=== PATIENT | male | born 1960 | race African-American/Black ===

== ENCOUNTER 2018-08-05 12:45 | Inpatient (IN) | payer BC ==
--- NOTE | 2018-08-05 14:05 | RAD REPORT ---
EXAM DESCRIPTION: RAD - Chest Pa And Lat (2 Views) - 08/05/2018 1:47 pm CLINICAL HISTORY: Fall, chest pain COMPARISON: None. TECHNIQUE: PA and lateral views of the chest were obtained. FINDINGS: The lungs are clear. Heart size is normal and central vasculature is within normal limit s. No pleural effusion or pneumothorax seen. No acute bony finding noted. No aortic abnormality. IMPRESSION: No acute cardiopulmonary process.
--- NOTE | 2018-08-05 15:51 | RAD REPORT ---
EXAM DESCRIPTION: CT - Ct Stroke Brain Wo Cont - 08/05/2018 3:40 pm CLINICAL HISTORY: left sided weakness. dysequilibrium Headache, drowsiness. COMPARISON: No comparisons TECHNIQUE: All CT scans are performed using dose optimization technique as appropriate and may inclu de automated exposure control or mA/KV adjustment according to patient size. FINDINGS: No intracranial hemorrhage, hydrocephalus or extra-axial fluid collection.There is evidenc e gliosis seen adjacent to the left frontal horn likely representing old infarct. Areas of intermedia te diminished density are seen along the right frontal horn measuring 12 mm and right periventricular white matter measuring 12 mm are suspicious for areas of subacute infarct. The paranasal sinuses and mastoids are clear. The calvarium is intact. IMPRESSION: Areas of diminished density as detailed in the right periventricular white matter are russ spicious for subacute nonhemorrhagic infarct. No intracranial hemorrhage is seen. No midline shift. The findings were discussed with Dr. Infante in the ER on 08/05/2018 at 3:45 p.m. by telephone.
[2018-08-05 16:10] LABS: Absolute Monocytes 0.7 K/uL (0.1-1.3); Absolute Neutrophil 2.7 K/uL (1.8-8.0); Eosinophils % 4.4 % (0-4.4); Hematocrit 45.5 % (39.6-49.0); MPV 8.4 fL (7.6-11.3); Monocytes % 14.5 % (3.3-12.3); RBC Red Blood Cell Count 4.68 M/uL (4.33-5.43)
[2018-08-05] MEDS ORDERED: ASPIRIN 81 MG CHEWABLE TABLET ONE (16:17)
[2018-08-05 16:22] LABS: ALT/SGPT 38 U/L (12-78); AST/SGOT 33 U/L (15-37); Albumin 4.3 g/dL (3.4-5.0); Alkaline Phosphatase 56 U/L (45-117); BUN Blood Urea Nitrogen 13 mg/dL (7-18); Bicarbonate 27 mmol/L (21-32); Bilirubin Direct 0.1 mg/dL (0-0.2); Bilirubin Total 0.5 mg/dL (0.2-1.0); Glucose Level 70 mg/dL (74-106); Potassium 4.3 mmol/L (3.5-5.1); Protein, Total 9.3 g/dL (6.4-8.2); Sodium Level 134 mmol/L (136-145); Troponin (Emerg Dept Use Only) < 0.02 ng/mL (0.0-0.045)
[2018-08-05 16:25] LABS: Barbiturates NEGATIVE (NEGATIVE); Benzodiazepines NEGATIVE (NEGATIVE); Cocaine NEGATIVE (NEGATIVE); METHAMPHETAM NEGATIVE (NEGATIVE); Methadone NEGATIVE (NEGATIVE); Opiates NEGATIVE (NEGATIVE); Phencyclidine NEGATIVE (NEGATIVE); THC Cannibis NEGATIVE (NEGATIVE)
[2018-08-05] MEDS ORDERED: DEXAMETHASONE 10 MG/ML VIAL ONE (16:28)
[2018-08-05 16:36] LABS: Urine Blood TRACE (NEG); Urine Glucose NEGATIVE (NEG); Urine Protein 1+ (NEG); Urine Specific Gravity 1.005 (1.005-1.030); Urine pH 5.5 (5.0-7.0)
[2018-08-05 16:42] LABS: Protime INR 0.97
--- NOTE | 2018-08-05 17:03 | EKG ---
Test Date: 2018-08-05 Test Time: 14:22:03 Ring Making Machine Operator: JOSE MEASUREMENT RESULTS: Intervals: Rate: 86 [place]: 158 QRSD: 82 QT: 372 QTc: 445 [place]: P: 61 [place]: 158 QRS: 85 T: 43 INTERPRETIVE STATEMENTS: Normal sinus rhythm Anteroseptal infarct, age undetermined Abnormal ECG No previous ECG available for comparison Electronically Signed On 08-05-18 17:03:15 FURNACE COMBINATION ANALYST by Chapito Mosqueda
--- NOTE | 2018-08-05 17:48 | ER ---
Nurse's Notes [facility] Name: Binh Parsons Age: 58 yrs Sex: Male : 1960 Arrival Date: 08/05/2018 Time: 12:46 Bed 26 Private MD: Erasmo Garcia Diagnosis: Right side periventricular subacute Infarction Presentation: 08/05 12:53 Presenting complaint: Patient states: 2 days ago, i started on a new medication, hj lisinopril-hctz 10-12.5mg; on same day i fell after it took a nap, i started feeling numb and tingling on my L arm; last night i fell again; no complaints of pain from the fall;. Transition of care: patient was not received from another setting of care. Onset of symptoms was August 05, 2018. Risk Assessment: Do you want to hurt yourself or someone else? Patient reports no desire to harm self or others. Initial Sepsis Screen: Does the patient meet any 2 criteria? No. Patient's initial sepsis screen is negative. Does the patient have a suspected source of infection? No. Patient's initial sepsis screen is negative. Care prior to arrival: None. 12:53 Method Of Arrival: Ambulatory 12:53 Acuity: DONG 3 hj Triage Assessment: 12:57 General: Appears in no apparent distress. uncomfortable, Behavior is calm, cooperative, hj appropriate for age. Pain: Denies pain. Historical: - Allergies: 12:57 No Known Allergies; hj - Home Meds: 12:57 lisinopril-hydrochlorothiazide 10-12.5 mg oral tab 1 tab once daily [Active]; hj amlodipine 2.5 mg tab 1 tab once daily [Active]; - PMHx: 12:57 Hypertension; hj - PSHx: 12:57 None; hj - Immunization history:: Adult Immunizations up to date. - Social history:: Smoking status: Patient uses tobacco products, Patient uses alcohol, Patient uses smokes a pack of cigarettes per day. drinks a 6 pack beer per day. - Ebola Screening: : Patient negative for fever greater than or equal to 101.5 degrees Fahrenheit, and additional compatible Ebola Virus Disease symptoms Patient denies exposure to infectious person Patient denies travel to an Ebola-affected area in the 21 days before illness onset. - Family history:: not pertinent. - Hospitalizations: : No recent hospitalization is reported. Screenin:57 Abuse screen: Denies threats or abuse. Denies injuries from another. Nutritional hj screening: No deficits noted. Tuberculosis screening: No symptoms or risk factors identified. Fall Risk None identified. 16:48 Patient has been NPO before screening. The patient is alert, able to follow commands. tl3 The patient does not exhibit slurred or garbled speech The patient is not exhibiting difficulty speaking. The patient does not exhibit difficulty understanding words. The patient is able to swallow own secretions with no drooling or need for suction. Patient tolerated one teaspoon of water. No drooling, immediate coughing, gurgling, or clearing of the throat was noted. The patient tolerated 90mL of water. No drooling, immediate coughing, gurgling, or clearing of the throat was noted. The patient passed the bedside swallow screening. Oral medications may be given as ordered. Contact Physician for further diet orders. Provider notified of bedside swallow screening results: Ilia Infante MD. Assessment: 15:03 General: Appears uncomfortable, slender, well groomed, well developed, well nourished, tl3 Behavior is calm, cooperative, appropriate for age. Neuro: Level of Consciousness is awake, alert, obeys commands. Cardiovascular: Patient's skin is warm and dry. Rhythm is sinus rhythm. Respiratory: Airway is patent Respiratory effort is even, unlabored, Respiratory pattern is regular, symmetrical. GI: No signs and/or symptoms were reported involving the gastrointestinal system. : No signs and/or symptoms were reported regarding the genitourinary system. EENT: No signs and/or symptoms were reported regarding the EENT system. Derm: No signs and/or symptoms reported regarding the dermatologic system. Musculoskeletal: No signs and/or symptoms reported regarding the musculoskeletal system. 17:25 Reassessment: No changes from previously documented assessment. Patient and/or family tl3 updated on plan of care and expected duration. Pain level reassessed. Patient is alert, oriented x 3, equal unlabored respirations, skin warm/dry/pink. Hospitalist at bedside. 20:26 Reassessment: Patient appears in no apparent distress at this time. No changes from tl3 previously documented assessment. Patient and/or family updated on plan of care and expected duration. Pain level reassessed. Patient is alert, oriented x 3, equal unlabored respirations, skin warm/dry/pink. Vital Signs: 12:58 BP 148 / 90; Pulse 97; Resp 18; Temp 98.3(TE); Pulse Ox 100% on R/A; Weight 65.77 kg; hj Height 5 ft. 8 in. (172.72 cm); Pain 0/10; 14:18 BP 148 / 85 LA (auto/reg); Pulse 86; Resp 18; Pulse Ox 98% ; Pain 0/10; jp3 14:24 BP 143 / 84 LA Supine (auto/reg); Pulse 82; Pulse Ox 98% on R/A; Pain 0/10; jp3 14:26 BP 143 / 88 LA Sitting (auto/reg); Pulse 91; Pulse Ox 99% on R/A; Pain 0/10; jp3 14:28 BP 139 / 88 LA Standing (auto/reg); Pulse 94; Pulse Ox 99% on R/A; Pain 0/10; jp3 16:50 BP 146 / 85; Pulse 100; Resp 18; Pulse Ox 99% on R/A; tl3 20:26 BP 126 / 70; Pulse 88; Resp 18; Pulse Ox 99% on R/A; tl3 12:58 Body Mass Index 22.05 (65.77 kg, 172.72 cm) hj 14:24 Pt stated : "I feel good. No lightheadedness or dizziness" jp3 14:26 Same as Supine comment jp3 14:28 Same as Supine and Sitting comment jp3 NIH Stroke Scale Scores: 16:48 NIHSS Score: 0 tl3 ED Course: 12:46 Patient arrived in ED. ag5 12:47 Erasmo Garcia DO is Private Physician. ag5 12:55 Triage completed. hj 12:57 Arm band placed on right wrist. hj 12:58 Patient has correct armband on for positive identification. Placed in gown. Bed in low hj position. Call light in reach. Side rails up X 1. 13:42 Chest Pa And Lat (2 Views) XRAY In Process Unspecified. EDMS 14:26 Soheila Galvan, MARLIN is Primary Nurse. tl3 14:27 Ilia Infante MD is Attending Physician. wa 14:28 EKG done, by lighting engineering technician. reviewed by Ilia Infante MD. sm3 15:03 ED physician to see patient. tl3 15:03 No provider procedures requiring assistance completed. tl3 15:[address] vm2 15:40 CT completed. Patient tolerated procedure well. Patient moved to radiology. vm2 15:41 CT Stroke Brain w/o Contrast In Process Unspecified. EDMS 16:48 Inserted saline lock: 20 gauge in right antecubital area, using aseptic technique. tl3 17:46 Farzana Oconnell MD is Hospitalizing Provider. wa 20:26 Patient admitted, IV remains in place. tl3 Administered Medications: 16:04 Drug: Aspirin Chewable Tablet 324 mg Route: PO; tl3 16:47 Follow up: Response: No adverse reaction tl3 Point of Care Testing: Blood Glucose: 16:03 Blood Glucose: 68 mg/dL; tl3 Ranges: Outcome: 17:47 Decision to Hospitalize by Provider. wa 20:27 Admitted to Tele accompanied by tech, via wheelchair, with chart. tl3 20:27 Condition: stable 20:27 Instructed on the need for admit. 21:38 Patient left the ED. tl3 NIH Stroke Scale - NIH Stroke Score Date: 08/05/2018 Time: 16:48 Total Score = 0 1a. Level of Consciousness (LOC) - 0(Alert) 1b. Level of Consciousness (LOC) (Year \\T\\ Age) - 0(Both) 1c. LOC Commands (Open \\T\\ Closes Eyes/Concrete Rod Buster) - 0(Both) 2. Best Gaze (Lateral Gaze Paresis) - 0(Normal) 3. Visual Field Loss - 0(No visual loss) 4. Facial Palsy - 0(Normal) 5a. Left Arm: Motor (10-second hold) - 0(No drift) 5b. Right Arm: Motor (10-second hold) - 0(No drift) 6a. Left Leg: Motor (5-second hold - always test supine) - 0(No drift) 6b. Right Leg: Motor (5-second hold - always test supine) - 0(No drift) 7. Limb Ataxia (finger/nose \\T\\ heel/cortez - test with eyes open) - 0(Absent) 8. Sensory Loss (pinprick arms/legs/face) - 0(Normal) 9. Best Language: Aphasia (description/naming/reading) - 0(No aphasia) 10. Dysarthria (speech clarity - read or repeat words) - 0(Normal) 11. Extinction and Inattention (visual/tactile/auditory/spatial/personal) - 0(No abnormality) Initials: tl3 Signatures: Dispatcher [employer] Taiwo Neely, RN RN Muna Huffman 2 Ilia Infante MD MD wa Lowrey, Tammy, RN RN tl3 Diana Barrientos sm3 Donn Cummins jp3 Celso Kelly ag5 Corrections: (The following items were deleted from the chart) 12:59 12:58 Pulse 97bpm; Resp 18bpm; Pulse Ox 100% RA; Temp 98.3F Temporal; 65.77 kg; hj Height 5 ft. 8 in.; BMI: 22.0; Pain 0/10; hj 14:38 14:34 BP 143 / 84 Supine Auto L Arm Regular; Pulse 82bpm; Pulse Ox 98% RA; Pain jp3 0/10; Pt stated : "I feel good. No lightheadedness or dizziness"; jp3
--- NOTE | 2018-08-05 17:48 | EDPHYS ---
Physician Documentation [facility] Name: Binh Parsons Age: 58 yrs Sex: Male : 1960 Arrival Date: 08/05/2018 Time: 12:46 Bed 26 Private MD: Jose [facility] ED Physician Ilia Infante HPI: 08/06 19:12 This 58 yrs old Black Male presents to ER via Ambulatory with complaints of Fall wa Injury, General Weakness, Numbness. 19:12 Details of fall: The patient fell from an upright position. Onset: The symptoms/episode wa began/occurred 3 day(s) ago. Associated injuries: The patient sustained no obvious injury. Severity of symptoms: At their worst the symptoms were moderate, in the emergency department the symptoms are unchanged. The patient has not experienced similar symptoms in the past. The patient has been recently seen by a physician: the patient's primary care provider. presents with spouse c/o unsteady on his feet and falling to the left since Thursday night (3 days ago). Per , pt began falling to his left since Thursday and appears wobbly on his feet. Pt failed on the job physical a week ago and saw Dr. Garcia for BP issues. put on BP meds and sent home. states they want to know if the medication is what is making him fall. Pt denies SAMS or dizziness. Denies chest pain or shortness of breath. denies difficulty swallowing. admits to having difficulty walking and having to hold on to things when walks. denies injury or pain when walks. Historical: - Allergies: 08/05 12:57 No Known Allergies; hj - Home Meds: 12:57 lisinopril-hydrochlorothiazide 10-12.5 mg oral tab 1 tab once daily [Active]; hj amlodipine 2.5 mg tab 1 tab once daily [Active]; - PMHx: 12:57 Hypertension; hj - PSHx: 12:57 None; hj - Immunization history:: Adult Immunizations up to date. - Social history:: Smoking status: Patient uses tobacco products, Patient uses alcohol, Patient uses smokes a pack of cigarettes per day. drinks a 6 pack beer per day. - Ebola Screening: : Patient negative for fever greater than or equal to 101.5 degrees Fahrenheit, and additional compatible Ebola Virus Disease symptoms Patient denies exposure to infectious person Patient denies travel to an Ebola-affected area in the 21 days before illness onset. - Family history:: not pertinent. - Hospitalizations: : No recent hospitalization is reported. ROS: 08/06 19:18 Constitutional: Negative for fever, chills, and weight loss, Eyes: Negative for injury, wa pain, redness, and discharge, ENT: Negative for injury, pain, and discharge, Neck: Negative for injury, pain, and swelling, Cardiovascular: Negative for chest pain, palpitations, and edema, Respiratory: Negative for shortness of breath, cough, wheezing, and pleuritic chest pain, Abdomen/GI: Negative for abdominal pain, nausea, vomiting, diarrhea, and constipation, Back: Negative for injury and pain, : Negative for injury, bleeding, discharge, and swelling, MS/Extremity: Negative for injury and deformity, Skin: Negative for injury, rash, and discoloration, Psych: Negative for depression, anxiety, suicide ideation, homicidal ideation, and hallucinations. Neuro: Positive for gait disturbance, Negative for altered mental status, dizziness, headache, loss of consciousness, seizure activity, speech changes, syncope, near syncope, tingling, visual changes, c/o numbness L wrist. All other systems are negative. Exam: 19:21 Constitutional: This is a well developed, well nourished patient who is awake, alert, wa and in no acute distress. Head/Face: Normocephalic, atraumatic. Eyes: Pupils equal round and reactive to light, extra-ocular motions intact. Lids and lashes normal. Conjunctiva and sclera are non-icteric and not injected. Cornea within normal limits. Periorbital areas with no swelling, redness, or edema. ENT: Nares patent. No nasal discharge, no septal abnormalities noted. Tympanic membranes are normal and external auditory canals are clear. Oropharynx with no redness, swelling, or masses, exudates, or evidence of obstruction, uvula midline. Mucous membranes moist. Neck: Trachea midline, no thyromegaly or masses palpated, and no cervical lymphadenopathy. Supple, full range of motion without nuchal rigidity, or vertebral point tenderness. No Meningismus. Chest/axilla: Normal chest wall appearance and motion. Nontender with no deformity. No lesions are appreciated. Cardiovascular: Regular rate and rhythm with a normal S1 and S2. No gallops, murmurs, or rubs. Normal PMI, no JVD. No pulse deficits. Respiratory: Lungs have equal breath sounds bilaterally, clear to auscultation and percussion. No rales, rhonchi or wheezes noted. No increased work of breathing, no retractions or nasal flaring. Abdomen/GI: Soft, non-tender, with normal bowel sounds. No distension or tympany. No guarding or rebound. No evidence of tenderness throughout. Back: No spinal tenderness. No costovertebral tenderness. Full range of motion. Skin: Warm, dry with normal turgor. Normal color with no rashes, no lesions, and no evidence of cellulitis. MS/ Extremity: Pulses equal, no cyanosis. Neurovascular intact. Full, normal range of motion. Psych: Awake, alert, with orientation to person, place and time. Behavior, mood, and affect are within normal limits. 19:21 Neuro: Orientation: is normal, Mentation: is normal, Memory: is normal, Cranial nerves: grossly normal, Cerebellar function: dysmetria is noted on the left, the patient is unable to track left heel to right cortez, unable to perform alternating rapid hand movements with left hand, failed 3 out of 3 on left side testing. strength otherwise equal. , Motor: is normal, Gait: is unsteady. Vital Signs: 08/05 12:58 BP 148 / 90; Pulse 97; Resp 18; Temp 98.3(TE); Pulse Ox 100% on R/A; Weight 65.77 kg; hj Height 5 ft. 8 in. (172.72 cm); Pain 0/10; 14:18 BP 148 / 85 LA (auto/reg); Pulse 86; Resp 18; Pulse Ox 98% ; Pain 0/10; jp3 14:24 BP 143 / 84 LA Supine (auto/reg); Pulse 82; Pulse Ox 98% on R/A; Pain 0/10; jp3 14:26 BP 143 / 88 LA Sitting (auto/reg); Pulse 91; Pulse Ox 99% on R/A; Pain 0/10; jp3 14:28 BP 139 / 88 LA Standing (auto/reg); Pulse 94; Pulse Ox 99% on R/A; Pain 0/10; jp3 16:50 BP 146 / 85; Pulse 100; Resp 18; Pulse Ox 99% on R/A; tl3 20:26 BP 126 / 70; Pulse 88; Resp 18; Pulse Ox 99% on R/A; tl3 12:58 Body Mass Index 22.05 (65.77 kg, 172.72 cm) hj 14:24 Pt stated : "I feel good. No lightheadedness or dizziness" jp3 14:26 Same as Supine comment jp3 14:28 Same as Supine and Sitting comment jp3 NIH Stroke Scale Scores: 16:48 NIHSS Score: 0 tl3 MDM: 14:27 Patient medically screened. pa 08/06 19:24 Differential diagnosis: symptoms suspicious for subacute stroke. Pt out of window since pa onset 3 days ago. Will work up and consult neurology. Data reviewed: vital signs, nurses notes. Test interpretation: by ED physician or midlevel provider:. 19:26 Test interpretation: by ED physician or midlevel provider: labs noted within [facility] limits. CXR normal. Head CT positive for subacute R periventricular non-hemorrhagic infarct. EKG: interpreted by me. HR 86. normal axis. normal intervals. anteroseptal Q waves noted. possibly old infarct. 19:29 Physician consultation: Juan Jones MD. Special discussion: admitted with neuro wa consult for R subacute infarction of periventricular area. pt passed swallow study. ASA given. advised on the need to quit smoking and ETOH. Dr. Jones gave orders. Pt admitted to Dr. Oconnell. 08/05 15:30 Order name: Hepatic Function; Complete Time: 17:45 pa 08/05 15:30 Order name: Magnesium; Complete Time: 17:45 pa 08/05 15:30 Order name: UDS; Complete Time: 17:45 pa 08/05 15:30 Order name: Troponin (emerg Dept Use Only); Complete Time: 17:45 pa 08/05 15:30 Order name: Basic Metabolic Panel; Complete Time: 17:45 pa 08/05 15:30 Order name: CBC with Diff; Complete Time: 17:45 pa 08/05 13:15 Order name: Chest Pa And Lat (2 Views) XRAY; Complete Time: 17:45 [facility] 08/05 13:15 Order name: EKG; Complete Time: 13:18 [facility] 08/05 15:30 Order name: Protime (+inr); Complete Time: 17:45 pa 08/05 15:30 Order name: CT Stroke Brain w/o Contrast; Complete Time: 16:01 pa 08/05 16:12 Order name: Urine Dipstick--Ancillary (enter results); Complete Time: 17:10 08/05 13:15 Order name: EKG - Nurse/Tech; Complete Time: 14:23 [facility] 08/05 13:15 Order name: Orthostatics; Complete Time: 14:39 [facility] 08/05 15:30 Order name: Accucheck; Complete Time: 16:09 pa 08/05 15:30 Order name: Cardiac monitoring; Complete Time: 16:09 pa 08/05 15:30 Order name: EKG - Nurse/Tech; Complete Time: 16:09 pa 08/05 15:30 Order name: IV Saline Lock; Complete Time: 16:08 pa 08/05 15:30 Order name: Labs collected and sent; Complete Time: 16:08 pa 08/05 15:30 Order name: O2 Sat Monitoring; Complete Time: 16:08 pa 08/05 15:30 Order name: Stroke Swallow Screen; Complete Time: 16:08 pa Administered Medications: 08/05 16:04 Drug: Aspirin Chewable Tablet 324 mg Route: PO; tl3 16:47 Follow up: Response: No adverse reaction tl3 Point of Care Testing: Blood Glucose: 16:03 Blood Glucose: 68 mg/dL; tl3 Ranges: Critical Glucose Levels:Adult <50 mg/dl or >400 mg/dl <40 mg/dl or >180 mg/dl Disposition: 08/05/18 17:47 Hospitalization ordered by Farzana Oconnell for Inpatient Admission. Preliminary diagnosis is Right side periventricular subacute Infarction. - Bed requested for Telemetry/MedSurg (Inpatient). - Status is Inpatient Admission. tl3 - Condition is Stable. - Problem is new. - Symptoms are unchanged. UTI on Admission? No Critical care time excluding procedures: 08/06 19:31 Critical care time: Bedside Care: 15 minutes, Consultation: 10 minutes, Family wa Intervention: 5 minutes. Total time: 30 minutes NIH Stroke Scale - NIH Stroke Score Date: 08/05/2018 Time: 16:48 Total Score = 0 1a. Level of Consciousness (LOC) - 0(Alert) 1b. Level of Consciousness (LOC) (Year \\T\\ Age) - 0(Both) 1c. LOC Commands (Open \\T\\ Closes Eyes/Street Light Repairer) - 0(Both) 2. Best Gaze (Lateral Gaze Paresis) - 0(Normal) 3. Visual Field Loss - 0(No visual loss) 4. Facial Palsy - 0(Normal) 5a. Left Arm: Motor (10-second hold) - 0(No drift) 5b. Right Arm: Motor (10-second hold) - 0(No drift) 6a. Left Leg: Motor (5-second hold - always test supine) - 0(No drift) 6b. Right Leg: Motor (5-second hold - always test supine) - 0(No drift) 7. Limb Ataxia (finger/nose \\T\\ heel/cortez - test with eyes open) - 0(Absent) 8. Sensory Loss (pinprick arms/legs/face) - 0(Normal) 9. Best Language: Aphasia (description/naming/reading) - 0(No aphasia) 10. Dysarthria (speech clarity - read or repeat words) - 0(Normal) 11. Extinction and Inattention (visual/tactile/auditory/spatial/personal) - 0(No abnormality) Initials: tl3 Signatures: Dispatcher [employer] EDMS Radha Rivas RN RN kl Therrien, Shelly, RESEARCH AND EVALUATION MANAGER-C RESEARCH AND EVALUATION MANAGER-Csnw Taiwo Estrada RN RN hj Appiah, William, MD MD wa Lowrey, Tammy, RN RN tl3 Corrections: (The following items were deleted from the chart) 02 15:39 15:31 Chest Single View+RAD.RAD.BRZ ordered. EDHI EDHI 16:08 15:30 NPO ordered. pa tl3 19:46 17:47 Hospitalization Ordered by Farzana Oconnell MD for Inpatient Admission. cecile Preliminary diagnosis is Right side periventricular subacute Infarction. Bed requested for Telemetry/MedSurg (Inpatient). Status is Inpatient Admission. Condition is Stable. Problem is new. Symptoms are unchanged. UTI on Admission? No. pa 21:38 19:46 08/05/2018 17:47 Hospitalization Ordered by Farzana Oconnell MD for Inpatient tl3 Admission. Preliminary diagnosis is Right side periventricular subacute Infarction. Bed requested for Telemetry/MedSurg (Inpatient). Status is Inpatient Admission. Condition is Stable. Problem is new. Symptoms are unchanged. UTI on Admission? No. cecile
[2018-08-05] MEDS ORDERED: ATORVASTATIN 20 MG TAB PO SCH (21:30)
[2018-08-05] MEDS ORDERED: ONDANSETRON 4 MG/2 ML VIAL IV PRN (21:30)
[2018-08-05] MEDS ORDERED: FLUMAZENIL 0.1 MG/ML (5 mL VIAL) IV PRN (21:30)
[2018-08-05] MEDS ORDERED: LORazepam 2 MG/ML VIAL IV PRN (21:30)
[2018-08-05] MEDS ORDERED: ACETAMINOPHEN 500 MG TAB PO PRN (21:30)
[2018-08-05] MEDS: chlordiazePOXIDE HCl 25 MG CAP PO SCH ×2 (22:41→23:22)
[2018-08-05] MEDS: FOLIC ACID 1 MG, MULTIVITAMINS INJ 10 ML, THIAMINE HCL 100 MG in NA CHLORIDE 0.9% 1,000 ML IV SCH (23:00)
[2018-08-05] MEDS ORDERED: NA CHLORIDE 0.9% 1,000 ML ONE (23:47)
[2018-08-05] MEDS ORDERED: MULTIVITAMINS 10 ML VIAL (INJ) IV ONE ×2 (23:47→23:52)
[2018-08-05] MEDS ORDERED: THIAMINE 200 MG/2 ML INJ ONE (23:47)
[2018-08-05] MEDS ORDERED: FOLIC ACID 5 MG/ML VIAL ONE (23:50)
[2018-08-06] MEDS: chlordiazePOXIDE HCl 25 MG CAP PO SCH ×2 (05:21→21:45)
[2018-08-06 05:55] LABS: Absolute Lymphocytes (CBC) 0.9 K/uL (0.7-4.9); Absolute Monocytes 0.5 K/uL (0.1-1.3); Absolute Neutrophil 1.6 K/uL (1.8-8.0); Basophils % 1.2 % (0-1.3); Hematocrit 41.1 % (39.6-49.0); Lymphocytes % 27.6 % (15.3-44.8); MPV 8.8 fL (7.6-11.3); RBC Red Blood Cell Count 4.25 M/uL (4.33-5.43)
[2018-08-06 06:07] LABS: ALT/SGPT 29 U/L (12-78); AST/SGOT 27 U/L (15-37); Albumin 3.4 g/dL (3.4-5.0); Alkaline Phosphatase 51 U/L (45-117); BUN Blood Urea Nitrogen 16 mg/dL (7-18); Bicarbonate 26 mmol/L (21-32); Bilirubin Total 0.5 mg/dL (0.2-1.0); Glucose Level 85 mg/dL (74-106); HDL Cholesterol 80 mg/dL (40-60); LDL Cholesterol, Calculated 126 (<130); Potassium 3.8 mmol/L (3.5-5.1); Protein, Total 7.3 g/dL (6.4-8.2); Sodium Level 138 mmol/L (136-145)
[2018-08-06 07:35] LABS: Blood Morphology Comment NOT SEEN (NOT SEEN); Platelet Estimate ADEQ; Urine White Blood Cell Casts OK
[2018-08-06] MEDS ORDERED: POTASSIUM CL SA 10 MEQ TAB PO ONE (08:00)
[2018-08-06] MEDS ORDERED: FOLIC ACID 1 MG, MULTIVITAMINS INJ 10 ML, THIAMINE HCL 100 MG in NA CHLORIDE 0.9% 1,000 ML IV SCH (09:00)
[2018-08-06] MEDS: ENOXAPARIN 40 MG/0.4 ML SQ SCH (09:03)
[2018-08-06] MEDS: ASPIRIN EC 81 MG TAB PO SCH (09:03)
[2018-08-06] MEDS: FOLIC ACID 1 MG, MULTIVITAMINS INJ 10 ML, THIAMINE HCL 100 MG in NA CHLORIDE 0.9% 1,000 ML IV SCH (09:06)
--- NOTE | 2018-08-06 12:32 | RAD REPORT ---
EXAM DESCRIPTION: MRI - Brain W/Wo Cont - 08/06/2018 12:10 pm CLINICAL HISTORY: Right arm weakness and numbness COMPARISON: August 05, [address] TECHNIQUE: Axial, sagittal, and coronal magnetic images of the brain were obtained. 20 cc MultiHance administered intravenously FINDINGS: 22 x 4 millimeter area of abnormal signal is present within the right basal ganglia extend ing into the right liang radiata and right periventricular white matter compatible with acute infarc tion. Additional abnormal signal within the caudate, left thalamus and anterior right thalamus is compatibl e with old infarction. Ventricles are normal caliber. No abnormal enhancement within the brain is seen. An extra-axial fluid collection is not noted. Fluid is present within the right maxillary, ethmoid and frontal sinus which may indicate acute sinus itis sinus IMPRESSION: 22 x 4 millimeter acute infarction involving the right basal ganglia extending into the right liang radiata and right periventricular white matter
--- NOTE | 2018-08-06 12:34 | RAD REPORT ---
EXAM DESCRIPTION: MRI - MRA Head Wo Cont - 08/06/2018 12:10 pm CLINICAL HISTORY: Right arm numbness and weakness COMPARISON: None. TECHNIQUE: Magnetic resonance angiogram was performed. 3D MIPS reconstruction performed FINDINGS: The anterior cerebral, middle cerebral, posterior cerebral, distal internal carotid and ba silar arteries do not demonstrate a significant stenosis. An aneurysm is not displayed. IMPRESSION: Unremarkable MRA brain.
--- NOTE | 2018-08-06 12:39 | RAD REPORT ---
EXAM DESCRIPTION: USCarotid Artery Bilateral08/05/2018 10:08 pm CLINICAL HISTORY: CVA COMPARISON: None FINDINGS: The velocity of the right internal carotid artery equals 62 cm/sec. The right ICA/CCA rati o 0.8 The velocity of the left internal carotid artery equals 104 cm/sec. The left ICA/CCA ratio 1.3 Minimal plaque is present within the carotid arteries. The vertebral arteries demonstrate antegrade flow IMPRESSION: Minimal plaque within the carotid arteries without evidence of a hemodynamically signifi cant stenosis NASCET criteria used. Mild 0-49% stenosis Moderate 50-69% stenosis Severe 70-99% stenosis
--- NOTE | 2018-08-06 12:39 | RAD REPORT ---
EXAM DESCRIPTION: MRI - MRA Neck W/Wo Cont - 08/06/2018 12:10 pm CLINICAL HISTORY: Right arm numbness and weakness COMPARISON: None. TECHNIQUE: Magnetic resonance angiogram of the neck was performed. 19 cc MultiHance was administered intravenously. 3D MIPS reconstruction performed FINDINGS: The common carotid, internal carotid and external carotid arteries do not demonstrate a si gnificant stenosis. An aneurysm is not seen. The vertebral arteries are codominant without visualization of an abnormality. IMPRESSION: Unremarkable MRA neck NASCET criteria used. Mild 0-49% stenosis Moderate 50-69% stenosis Severe 70-99% stenosis
--- NOTE | 2018-08-06 16:14 | ECHO ---
HEIGHT: 5 ft 8 in WEIGHT: 137 lb 11.2 oz DATE OF STUDY: 08/06/[address]: Farzana Oconnell MD 2-DIMENSIONAL: YES M.MODE: YES DOPPLER: YES COLOR FLOW: YES TDS: PORTABLE: DEFINITY: BUBBLE STUDY: DIAGNOSIS: STROKE CARDIAC HISTORY: CATHERIZATION: NO SURGERY: NO PROSTHETIC VALVE: NO PACEMAKER: NO MEASUREMENTS (cm) DIASTOLIC (NORMALS) SYSTOLIC (NORMALS) IVSd 1.0 (0.6-1.2) LA Diam 3.1 (1.9-4.0) LVEF 69% LVIDd 4.7 (3.5-5.7) LVIDs 2.9 (2.0-3.5) %FS 39% LVPWd 1.1 (0.6-1.2) Ao Diam 3.0 (2.0-3.7) 2 DIMENSIONAL ASSESSMENT: RIGHT ATRIUM: NORMAL LEFT ATRIUM: NORMAL RIGHT VENTRICLE: NORMAL LEFT VENTRICLE: NORMAL TRICUSPID VALVE: NORMAL MITRAL VALVE: NORMAL PULMONIC VALVE: NORMAL AORTIC VALVE: NORMAL PERICARDIAL EFFUSION: NONE AORTIC ROOT: NORMAL LEFT VENTRICULAR WALL MOTION: NORMAL DOPPLER/COLOR FLOW: TRACE MITRAL REGURGITATION. OTHERWISE NORMAL. COMMENTS: NORMAL TWO DIMENSIONAL ECHOCARDIOGRAM. TRACE MITRAL REGURGITATION. TECHNOLOGIST: ZUNILDA OH
--- NOTE | 2018-08-06 16:50 | HP ---
Date of Admission: 08/05/2018 Chief Complaint: Ataxia. Ward Service Supervisor: Dr. Jones with Neurology. History Of Present Illness: The patient is a 58-year-old male with recently diagnosed hypertension, who was in his usual state of health until 2 days prior to admission when the patient had sudden onset of ataxia, specifically on the left side with discoordination and multiple falls. The patient was just started on his blood pressure medications on that same day as well after having elevated blood pressure found on a yearly physical. The patient denies any specific head trauma. No fevers, chills, chest pain, nausea, or vomiting. The patient does drink alcohol on a daily basis and has to drink in order to stop from shaking in the mornings. The patient also smokes on a daily basis. The patient was brought into the ER for further evaluation. Upon arrival, his workup showed normal white blood cell count. His imaging studies did show a subacute infarct in the periventricular white matter on the right, which is consistent with his symptoms of about a 12 mm lesion. The patient was given aspirin, Decadron, and then referred for admission. When seen in the ER, he was awake, alert, oriented x3. Past Medical History: Hypertension. Past Surgical History: Appendectomy when he was a teenager. Allergies: NO KNOWN DRUG ALLERGIES. Medications: Amlodipine and lisinopril, HCTZ started 2 days. Family History: Father has diabetes. Social History: The patient drinks daily alcohol. Smokes half a pack of cigarettes every day, has been smoking for significant period of time. 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 Previously was independent in his activities of daily living. Review of Systems: An 11-point system reviewed, negative except as per HPI. Physical Examination: Vital Signs: Blood pressure 148/90, pulse 97, respirations 18, O2 100% on room air, temperature 98.3. General: Awake, alert, oriented x3, not in any acute distress. HEENT: Normocephalic, atraumatic. PERRLA. EOMI. Moist mucous membranes. Oropharynx is clear. Poor dentition. Conjunctivae anicteric. Neck: Supple. No JVD. Trachea midline. CV: S1 and S2. Peripheral pulses present. No murmurs. Regular rate and rhythm. Respiratory: Moving air well bilaterally. No wheezing or stridor. No use of accessory muscles. Gastrointestinal: Abdomen is soft, nontender, nondistended. Positive bowel sounds. No guarding or rigidity. Extremities: No clubbing, cyanosis, or edema, and no calf tenderness. Neuro: Cranial nerves 2 through 12 intact grossly. Muscle strength is 4/5 on the left upper and lower extremities, 5/5 right upper and lower extremities. Sensation decreased to light touch on the left upper extremity. Speech is normal. No facial asymmetry. Skin: No rashes. Normal skin turgor. Psych: Mood is okay. Affect is full. Insight and judgment are fair. Laboratory Data: Sodium 134, potassium 4.3, chloride 96, CO2 27, BUN 13, creatinine 1.04, glucose 70, calcium 9.5. Troponin less than 0.02. INR 0.97. WBC 4.6, H and H 15.8 and 45.5, platelets 202, neutrophils 58%. UA is negative. Tox screen is also negative. Imaging Studies: CT scan of the brain shows diminished density as detailed in the right periventricular white matter 12 mm, also along the right frontal horn , suspicious for subacute nonhemorrhagic infarct. No intracranial hemorrhage is seen. No midline shift. Chest x-ray, personally reviewed, shows no acute cardiopulmonary process. EKG shows normal sinus rhythm, rate of 86, anteroseptal infarct, age undetermined. Assessment And Plan: A 58-year-old male with: 1. Subacute stroke, right periventricular white matter. We will start on stroke guidelines with aspirin, statin. Will initiate workup with MRI and MRA of the brain and neck. Neurology has been consulted. We will obtain echocardiogram and carotid ultrasound. We will allow permissive hypertension. 2. Essential hypertension. For now, we will allow blood pressure to remain elevated around 160-180 range due to subacute stroke. 3. Substance, alcohol dependence. We will start on multivitamin, folate, thiamine, IV fluids, Librium taper, Ativan p.r.n. We will monitor for withdrawal using CIWA protocol. The patient does get the shakes every morning and has to drink in order to stop from withdrawals. Currently no active delirium tremens. We will check alcohol level. 4. Hyponatremia, likely due to chronic alcoholism. 5. Nicotine dependence with cigarette smoking. Counseled. Plan: Admit the patient to Med-Surg, place as inpatient. Dr. Jones with Neurology has been consulted. Length of stay >2 midnights. MESERET Voice ID: [id number] MTDD
--- NOTE | 2018-08-06 18:15 | PN ---
Date of Progress Note: 08/06/2018 History: The patient seen and examined. Chart reviewed and case discussed with RN and Dr. Jones. The patient seems to be doing better today, however, still ataxic. Medications: List reviewed. Physical Examination: Vital Signs: Temperature 98.9, heart rate 85, blood pressure 121/75, respirations 20, O2 98% on room air. General: Awake, alert, oriented x3. CV: S1, S2. Regular rate and rhythm. Peripheral pulses present. Respiratory: Moving air well bilaterally. No wheezing or stridor. Gastrointestinal: Abdomen is soft, nontender, nondistended. Positive bowel sounds. No guarding or rigidity. Extremities: No clubbing, cyanosis, or edema. No calf tenderness. Neuro: Cranial nerves 2-12 intact grossly. The patient has some left-sided weakness 4/5 and gait at axia. Speech is normal. No facial asymmetry. Skin: No rashes. Normal skin turgor. Laboratory Data: Sodium 138, potassium 3.8, chloride 104, CO2 26, BUN 16, creatinine 0.87, glucose 8 5, triglycerides 65, cholesterol 219, LDL 126, HDL 80, cholesterol 2.74. WBC 3.3, H and H 14 and 41. 1, platelets 180. MRA and MRA neck pending. Carotid artery ultrasound also pending. Assessment And Plan: A 58-year-old male with: 1.Subacute infarct in the right periventricular white matter, 12 mm lesion. The patient is still arboleda ving some gait ataxia. We will continue with speech therapy, occupational therapy, and physical chemist apy. Continue stroke guidelines with aspirin, statin. Deep vein thrombosis prophylaxis with Lovenox . Echocardiogram pending. Imaging studies also pending at this time. Neurology has been consulted. Appreciate Dr. Jones's input. 2.Essential hypertension. We will allow permissive hypertension at this time due to subacute stroke . 3.Alcohol dependence. The patient is on IV fluids with folate and thiamine. We will continue with Librium taper for withdrawal. Continue with CIWA protocol. Use Ativan p.r.n. 4.Dyslipidemia, we will continue statin. Plan: Continue to monitor followup with imaging studies. The patient may require prison fa cility or rehab. SA/MODL Voice ID: [id number] Report ID: [id number]
[2018-08-06] MEDS: ATORVASTATIN 80 MG TAB PO SCH (21:45)
--- NOTE | 2018-08-07 00:11 | CON ---
Reason For Consultation: Consultation called by Dr. Oconnell because of stroke. History Of Present Illness: Mr. Parsons is a 58-year-old, right-handed -[place] patient, who has untreated hypertension, chronic alcohol and cigarette abuse, who comes in with acute stroke-like symptoms of 2 days' duration. The patient said earlier this year in June, he had his annual phys ical and his blood pressure was found to be elevated, not clear how high, but at least over 160 and h e subsequently was told to follow up with physician, but did not do that. He said for about 3 weeks, attempts were made to contact him, but those were unsuccessful. In any event, he did eventually see his primary care physician, Dr. Erasmo Garcia and was diagnosed with hypertension and started on mari nopril and hydrochlorothiazide. Meanwhile, the patient kept drinking 8-12 beers daily and smoking a pack of cigarettes daily. He said Thursday he went to bed after taking the new prescription for blood pressure medications, drank the beer, and woke up noting left-sided weakness. He tried to walk and fell and actually twice more, he tried to get up, but fell to the left side. He eventually called hi s , but did not seek medical attention at that point. He eventually when his symptoms were not r esolved went to see his primary care doctor who sent him in, where he was admitted to [facility] on the 05 of August. His brain CT scan showed a right periventricular subacute infarct and s ubsequent MRI of the brain identified a 22 x 4 mm acute infarct in the right basal ganglia extending into the right liang radiata and right periventricular white matter. Brain MRI also identified temperature inspector shantell strokes in the left thalamus, caudate, and the anterior right thalamus. He had no hemorrhagic ar eas or evidence of prior hemorrhagic strokes. His neck magnetic resonance angiogram showed an unrema rkable area. No stenosis identified and his brain magnetic resonance angiogram was also unremarkable . He also had a carotid artery ultrasound study, which showed minimal plaque in the carotid arteries without evidence of hemodynamically significant stenosis. He does have a pending echocardiogram. H is electrocardiogram showed normal sinus rhythm with an anterior septal infarct, age undetermined. C hest x-ray showed no acute cardiopulmonary processes. In terms of his deficit in the emergency room, despite the patient's difficulties, his NIH Stroke Scale was at 0. The patient did say that his def icits have not yet resolved. At the time of my evaluation, the patient actually was able to ambulate with the help of physical therapy, but he had incoordination in the left upper and lower extremities and some sensory deficits on that side as well. NIH Stroke Scale of 4. Past Medical History: As indicated, nontreated hypertension. Allergies: NONE. Social History: He smokes a pack of cigarettes a day and around 8 beers on a daily basis, may even m ore at event such as a Super Bowl on weekends. Family History: Denies any contributing factors there for his current complaints. Review of Systems: He denies recent fevers, chills, nausea, vomiting, myalgias, arthralgias, headache, weight change, ra sh, psychiatric complaints, gastrointestinal issues, and other positives on a 10-point systems review . Physical Examination: Vital Signs: Blood pressure 118/71, pulse from 85-93, respiratory rate 18-20, temperature 98.8, and oxygen saturation 97% on room air. Weight 137 pounds, height 5 feet and 8 inches, and BMI 20. General: Mr. Parsons is sitting on the side of his bed. He is in no acute distress. HEENT: He is normocephalic, atraumatic. Sclerae are anicteric. Oropharynx is moist and pink. Neck: Supple. Chest: Clear. Heart: Regular. Extremities: No clubbing, cyanosis, or edema. Neurological: He is alert and oriented to situation, place, and person. No expressive or receptive aphasias. Cranial nerves show a mild decrease in his left upper and lower visual morin, otherwise i ntact in the right visual field and otherwise his cranial nerves are intact in terms of his extraocul ar movements, his facial sensation, and facial symmetry. Hearing is intact. Tongue and palate are m idline. Motor examination proximally in upper extremities 5/5 in the deltoid, biceps, triceps, and o n the right with wrist and finger flexion-extension, 5/5. On the left side, wrist extension and flex ion 4+, finger extension 4+. He has no drift after a 10-second count. The lower extremity, on the r ight, he has 5/5 proximally and distally. On the left, he has 4+/5 proximally and distally 5/5, that is hip flexion and knee extension 4+/5 and knee flexion 4+/5 and distally he has 4-/5. Sensory exam , he has a stocking-glove loss, light touch temperature in the arms and legs. Coordination: He has ataxia noted. His gait, he is drifting to the left. He has dysmetria in the upper extremities and t he lower extremities as well. Some difficulty with fine finger movements in the left upper and lower extremities. Laboratory Data: Labs have been reviewed and are essentially unremarkable except for the cholesterol as mentioned. Assessment: Mr. Parsons is a 58-year-old patient with multiple chronic strokes and acute stroke of h is right basal ganglia, right liang radiata, and right periventricular white matter region measuring 22 x 4 mm, likely related to his chronic hypertension, which is untreated, chronic cigarette smoking , and alcohol abuse. Plan: 1.Aspirin 81 mg daily, Lipitor 80 mg at bedtime. Okay to continue Librium 25 mg every 12 hours, wilma n to taper over the 2 weeks. Lovenox 40 mg daily for his DVT prophylaxis. Folate 1 mg daily. Radha ine 100 mg twice daily. Ativan as needed. 2.The patient should be evaluated for the need for inpatient acute physical and occupational therapy to help him recover from his stroke as best recovery is right around the time of the acute event if very aggressive physical therapy is performed. 3.The patient was counseled strongly to stop smoking and drinking alcohol. 4.He was told of the importance to immediately call 911 if he has any deficits that recur or if he h as a sudden loss of function to help him have the best chance of full recovery. 5.Once the patient is discharged from the hospital and even if it is in the rehab unit, should ragini w up in Dr. Jones's office in 1 month. ANNE/FRACISCO Voice ID: [id number] Report ID: [id number]
[2018-08-07 06:58] LABS: ALT/SGPT 29 U/L (12-78); AST/SGOT 20 U/L (15-37); Albumin 3.4 g/dL (3.4-5.0); Alkaline Phosphatase 50 U/L (45-117); BUN Blood Urea Nitrogen 15 mg/dL (7-18); Bicarbonate 28 mmol/L (21-32); Bilirubin Total 0.4 mg/dL (0.2-1.0); Glucose Level 104 mg/dL (74-106); Potassium 3.8 mmol/L (3.5-5.1); Protein, Total 7.1 g/dL (6.4-8.2); Sodium Level 142 mmol/L (136-145)
[2018-08-07 06:59] LABS: Absolute Monocytes 0.6 K/uL (0.1-1.3); Absolute Neutrophil 1.6 K/uL (1.8-8.0); Basophils % 0.9 % (0-1.3); Eosinophils % 5.9 % (0-4.4); Hematocrit 41.3 % (39.6-49.0); Lymphocytes % 29.9 % (15.3-44.8); MPV 8.9 fL (7.6-11.3); Monocytes % 16.6 % (3.3-12.3); RBC Red Blood Cell Count 4.25 M/uL (4.33-5.43)
[2018-08-07] MEDS: ENOXAPARIN 40 MG/0.4 ML SQ SCH (09:12)
[2018-08-07] MEDS: chlordiazePOXIDE HCl 25 MG CAP PO SCH (09:12)
[2018-08-07] MEDS: ASPIRIN EC 81 MG TAB PO SCH (09:13)
[2018-08-07] MEDS ORDERED: POTASSIUM 25 MEQ EFFERV TAB PO ONE (10:00)
[2018-08-07] MEDS: FOLIC ACID 1 MG, MULTIVITAMINS INJ 10 ML, THIAMINE HCL 100 MG in NA CHLORIDE 0.9% 1,000 ML IV SCH (10:05)
--- NOTE | 2018-08-07 17:12 | PN ---
Date of Progress Note: 08/07/2018 Subjective: Patient seen and examined. Chart reviewed and case discussed with RN. The patient stat es he is doing well. He was able to make a lap around the hallway with the use of a walker. Still h aving some difficulty with coordinating his left side. Medications: List reviewed. Physical Examination: Vital signs: Temp 99.7, heart rate 79, blood pressure 146/83, respirations 16, O2 97% on room air. General: Awake, alert, oriented x3. No acute distress. CV: S1-S2. Regular rate and rhythm. Peripheral pulses present. Respiratory: Moving air well bilaterally. No wheezing or stridor. Gastrointestinal: Abdomen is soft, nontender, nondistended. Positive bowel sounds. Extremities: No clubbing, cyanosis, or edema. Neuro: Left-sided weakness 4+ out of 5. Skin: No rashes. Normal skin turgor. Laboratory Data: Sodium 142, potassium 3.8, chloride 106, CO2 28, BUN 15, creatinine 1.018, glucose 104, calcium. WBC 3.4, H and H 14.2 and 41.3, platelets 178. Echocardiogram shows EF 69%. Neck MRA shows unremarkable study. Brain MRI with MRA shows unremarkab le study of the MRA. Brain MRI shows 22 x 4 mm acute infarction involving the right basal ganglia ex tending into the right liang radiata and right periventricular white matter. Additional abnormal si gnal within the caudate, left thalamus and anterior right thalamus compatible with old infarction. Assessment And Plan: A 58-year-old male with: 1.Subacute infarct in the right periventricular white matter 12 mm lesion. The patient condition im proved slightly, able to ambulate with walker. Has undergone speech therapy and occupational therapy and physical therapy evaluation. We will continue with stroke guidelines, aspirin statin. The jorge a ent does have dyslipidemia. Echocardiogram was normal. Neck MRA was negative. Dr. Jones is on t he case. 2.Essential hypertension. Allow permissive hypertension due to subacute stroke. 3.Dyslipidemia, continue high-dose statin. 4.Alcohol dependence. We will continue to taper Librium and monitor for signs of withdrawal using C IWA protocol is Ativan p.r.n. continue with folate and thiamine. Plan: Refer to inpatient rehab. Monitor for signs of alcohol withdrawal. Continue with Librium tap er. SA/MODL Voice ID: [id number] Report ID: [id number]
[2018-08-07] MEDS: ATORVASTATIN 80 MG TAB PO SCH (20:49)
[2018-08-08 06:56] LABS: Potassium 3.9 mmol/L (3.5-5.1)
[2018-08-08] MEDS ORDERED: chlordiazePOXIDE HCl 25 MG CAP PO SCH (09:00)
[2018-08-08] MEDS: ASPIRIN EC 81 MG TAB PO SCH (09:56)
[2018-08-08] MEDS: ENOXAPARIN 40 MG/0.4 ML SQ SCH (09:57)
[2018-08-08] MEDS: FOLIC ACID 1 MG, MULTIVITAMINS INJ 10 ML, THIAMINE HCL 100 MG in NA CHLORIDE 0.9% 1,000 ML IV SCH (09:59)
[2018-08-08] MEDS: chlordiazePOXIDE HCl 5 MG CAP PO SCH (18:01)
[2018-08-08] MEDS: ATORVASTATIN 80 MG TAB PO SCH (21:19)
--- NOTE | 2018-08-08 22:40 | PN ---
Date of Progress Note: 08/08/2018 Subjective: The patient is seen and examined. Chart reviewed and case discussed with RN. The patie nt has no complaints. Working well with PT. No difficulty with food or going to the bathroom. No a cute events overnight. Medications: List reviewed. Physical Examination: Vital Signs: Temperature 99.2, heart rate 90, blood pressure 133/80, respirations 18, O2 98% on room air. General: Awake, alert, oriented x3. No acute distress. CV: S1, S2. No murmurs. Respiratory: Moving air well bilaterally. No wheezing. Gastrointestinal: Abdomen is soft, nontender, nondistended. Positive bowel sounds. Extremities: No clubbing, cyanosis, or edema. Neuro: Left-sided weakness 4/5. Gait ataxia. Laboratory Data: Sodium 141, potassium 3.9, chloride 104, CO2 30, BUN 15, creatinine 1.05, glucose 1 34, calcium 9.3. Assessment And Plan: A 58-year-old male with: 1.Subacute infarct in the right periventricular white matter, 12 mm lesion, likely thromboembolic. The patient's workup is complete, doing well with physical therapy. We will continue stroke guidelin es with aspirin and statin. 2.Essential hypertension. Allow permissive hypertension due to subacute stroke. 3.Dyslipidemia. Continue high-dose statin. 4.Alcohol dependence. We will consider tapering Librium. Continue to monitor for signs of withdraw al using CIWA protocol. Garrison p.r.bridgette Plan: Transfer to rehab once accepted. MESERET Voice ID: [id number] Report ID: [id number]
[2018-08-09 04:29] LABS: Absolute Lymphocytes (CBC) 1.1 K/uL (0.7-4.9); Absolute Monocytes 0.8 K/uL (0.1-1.3); Absolute Neutrophil 2.4 K/uL (1.8-8.0); Basophils % 0.7 % (0-1.3); Eosinophils % 5.4 % (0-4.4); Hematocrit 38.6 % (39.6-49.0); Lymphocytes % 24.3 % (15.3-44.8); MPV 8.8 fL (7.6-11.3); Monocytes % 17.3 % (3.3-12.3); RBC Red Blood Cell Count 3.99 M/uL (4.33-5.43)
[2018-08-09 06:10] LABS: BUN Blood Urea Nitrogen 9 mg/dL (7-18); Bicarbonate 32 mmol/L (21-32); Glucose Level 107 mg/dL (74-106); Potassium 3.8 mmol/L (3.5-5.1); Sodium Level 143 mmol/L (136-145)
[2018-08-09] MEDS: ENOXAPARIN 40 MG/0.4 ML SQ SCH (08:13)
[2018-08-09] MEDS: chlordiazePOXIDE HCl 5 MG CAP PO SCH (08:13)
[2018-08-09] MEDS: ASPIRIN EC 81 MG TAB PO SCH (08:13)
[2018-08-09] MEDS: FOLIC ACID 1 MG, MULTIVITAMINS INJ 10 ML, THIAMINE HCL 100 MG in NA CHLORIDE 0.9% 1,000 ML IV SCH (08:14)
[2018-08-09] MEDS ORDERED: POTASSIUM 25 MEQ EFFERV TAB PO ONE (09:00)
[2018-08-09] MEDS ORDERED: chlordiazePOXIDE HCl 25 MG CAP PO SCH (09:00)
[2018-08-09] MEDS: ATORVASTATIN 80 MG TAB PO SCH (20:07)
--- NOTE | 2018-08-10 03:21 | DS ---
Date of Discharge: 08/09/2018 Admitting Diagnoses: 1.Subacute infarct. 2.Essential hypertension. 3.Substance abuse with alcohol dependence. 4.Hyponatremia. 5.Nicotine dependence with cigarette smoking. Discharge Diagnoses: 1.Acute infarct, right periventricular white matter. The patient also has old strokes found on the MRI of the brain. 2.Essential hypertension. 3.Dyslipidemia, on statin. 4.Alcohol dependence. No signs of withdrawal. We will complete a Librium taper. 5.Hyponatremia, corrected. Hospital Course: The patient is a 58-year-old male who was recently diagnosed with hypertension, cam e in with multiple falls and ataxia. The patient was found to have a subacute stroke in the perivent ricular white matter. The patient was admitted to the hospital for further workup. Imaging studies were also obtained including MRI of the brain and MRA of the brain. Also identified chronic strokes in the left thalamus, caudate in the anterior right thalamus. His acute infarct was 22 x 4 mm in the right basal ganglia, extending into the right liang radiata and the right periventricular white mat ter. His MRA of the brain and neck were unremarkable. His echocardiogram showed a normal ejection f raction and did not show any abnormalities. Carotid artery ultrasound did not show any hemodynamical ly significant stenosis. The patient overall did well over the course of the hospital stay. He was evaluated by Neurology, Dr. Jones, as well as Speech Therapy, Occupational Therapy, and Physical T herapy. He did well, ambulating with a walker. The patient did well on stroke guidelines with aspir in and statin. Regarding his alcohol dependence, he has been on a Librium taper and did not show any acute signs of withdrawal. He was also placed on multivitamin, B12, and folate. The patient was co unseled extensively regarding his alcohol cessation. The patient was placed on Lovenox for deep veno us thrombosis prophylaxis. The patient was then referred to inpatient rehab and was discharged once accepted. Condition: Stable. Activity: As per rehab. Medications: As per medication reconciliation list. Followup: Follow up with primary care physician, Dr. Garcia, in the next week or two. Follow up with Dr. Jones, neurologist, in 2 weeks. Return to ER for worsening condition. Physical Examination: General: Awake, alert, oriented, in no acute distress. CV: S1, S2. No murmurs. Respiratory: Moving air well bilaterally. No wheezing. Gastrointestinal: Abdomen is soft, nontender, and nondistended. Positive bowel sounds. Extremities: No clubbing, cyanosis, or edema. Neurologic: Minimal gait ataxia. Strength is 4+/5, left lower extremity. /FRACSICO Voice ID: [id number] Report ID: [id number]
[2018-08-10 04:16] LABS: Absolute Monocytes 0.8 K/uL (0.1-1.3); Absolute Neutrophil 2.7 K/uL (1.8-8.0); Basophils % 0.6 % (0-1.3); Eosinophils % 5.4 % (0-4.4); Hematocrit 39.4 % (39.6-49.0); Lymphocytes % 20.2 % (15.3-44.8); MPV 8.6 fL (7.6-11.3); Monocytes % 17.5 % (3.3-12.3); RBC Red Blood Cell Count 4.06 M/uL (4.33-5.43)
[2018-08-10 04:25] LABS: BUN Blood Urea Nitrogen 11 mg/dL (7-18); Bicarbonate 30 mmol/L (21-32); Glucose Level 95 mg/dL (74-106); Potassium 3.8 mmol/L (3.5-5.1); Sodium Level 142 mmol/L (136-145)
[2018-08-10] MEDS ORDERED: POTASSIUM CL SA 10 MEQ TAB PO ONE (04:43)
[2018-08-10 04:54] LABS: Blood Morphology Comment NOT SEEN (NOT SEEN); Platelet Estimate ADEQ
[2018-08-10] MEDS: FOLIC ACID 1 MG TABLET PO SCH (08:19)
[2018-08-10] MEDS: ENOXAPARIN 40 MG/0.4 ML SQ SCH (08:19)
[2018-08-10] MEDS: ASPIRIN EC 81 MG TAB PO SCH (08:19)
[2018-08-10] MEDS: chlordiazePOXIDE HCl 5 MG CAP PO SCH (08:19)
[2018-08-10] MEDS: THIAMINE HCL 100 MG TABLET PO SCH (08:19)
--- NOTE | 2018-08-10 15:36 | P.PN ---
Date of Service: 08/10/17 Subjective: The patient is seen and examined. Chart reviewed and case discussed with RN. The patient has no complaints. Working well with PT. No difficulty with food or going to the bathroom. No acute events overnight. Pending the rehab transfer Medications: List reviewed. Physical Examination: Vital Signs: Temperature 99.2, heart rate 90, blood pressure 133/80, respirations 18, O2 98% on room air. General: Awake, alert, oriented x3. No acute distress. CV: S1, S2. No murmurs. Respiratory: Moving air well bilaterally. No wheezing. Gastrointestinal: Abdomen is soft, nontender, nondistended. Positive bowel sounds. Extremities: No clubbing, cyanosis, or edema. Neuro: Left-sided weakness 4/5. Gait ataxia. Laboratory Data: Reviewed Assessment And Plan: A 58-year-old male with: 1. 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 The patient's workup is complete, doing well with physical therapy. We will continue stroke guidelines with aspirin and statin. 2. Essential hypertension. Allow permissive hypertension due to subacute stroke. 3. Dyslipidemia. Continue high-dose statin. 4. Alcohol dependence. We will consider tapering Librium. Continue to monitor for signs of withdrawal using CIWA protocol. Garrison aponte Plan: Transfer to rehab once accepted.
[2018-08-10] MEDS: ATORVASTATIN 80 MG TAB PO SCH (20:37)
[2018-08-11 05:04] LABS: Potassium 3.9 mmol/L (3.5-5.1)
[2018-08-11] MEDS ORDERED: POTASSIUM CL SA 10 MEQ TAB PO ONE (05:10)
[2018-08-11] MEDS: chlordiazePOXIDE HCl 5 MG CAP PO SCH (08:02)
[2018-08-11] MEDS: FOLIC ACID 1 MG TABLET PO SCH (08:02)
[2018-08-11] MEDS: ENOXAPARIN 40 MG/0.4 ML SQ SCH (08:02)
[2018-08-11] MEDS: ASPIRIN EC 81 MG TAB PO SCH (08:03)
[2018-08-11] MEDS: THIAMINE HCL 100 MG TABLET PO SCH (08:03)
[2018-08-11] MEDS: ATORVASTATIN 80 MG TAB PO SCH (21:05)
[2018-08-12 05:51] LABS: Potassium 4.2 mmol/L (3.5-5.1)
[2018-08-12] MEDS: ENOXAPARIN 40 MG/0.4 ML SQ SCH (08:31)
[2018-08-12] MEDS: chlordiazePOXIDE HCl 5 MG CAP PO SCH (08:31)
[2018-08-12] MEDS: THIAMINE HCL 100 MG TABLET PO SCH (08:31)
[2018-08-12] MEDS: FOLIC ACID 1 MG TABLET PO SCH (08:31)
[2018-08-12] MEDS: ASPIRIN EC 81 MG TAB PO SCH (08:31)
--- NOTE | 2018-08-12 14:54 | P.PN ---
Date of Service: 08/12/18 Subjective: The patient is seen and examined. Chart reviewed and case discussed with RN. The patient has no complaints. Working well with PT/OT/ Speech. No difficulty with food or going to the bathroom. No acute events overnight. Pending the rehab transfer by insurance Medications: List reviewed. Physical Examination: Vital Signs: Temperature 99.2, heart rate 90, blood pressure 133/80, respirations 18, O2 98% on room air. General: Awake, alert, oriented x3. No acute distress. CV: S1, S2. No murmurs. Respiratory: Moving air well bilaterally. No wheezing. Gastrointestinal: Abdomen is soft, nontender, nondistended. Positive bowel sounds. Extremities: No clubbing, cyanosis, or edema. Neuro: Left-sided weakness 4/5. Gait ataxia. Laboratory Data: Reviewed Assessment And Plan: A 58-year-old male with: 1. 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 The patient's workup is complete, doing well with physical therapy. We will continue stroke guidelines with aspirin and statin. 2. Essential hypertension. Allow permissive hypertension due to subacute stroke. 3. Dyslipidemia. Continue high-dose statin. 4. Alcohol dependence. We will consider tapering Librium. Continue to monitor for signs of withdrawal using CIWA protocol. G[place] aponte Plan: Transfer to rehab once accepted. If insurance Denied pt will need HH setup with PT/OT and speech therapy
[2018-08-12] MEDS: ATORVASTATIN 80 MG TAB PO SCH (21:42)
[2018-08-13] MEDS: ENOXAPARIN 40 MG/0.4 ML SQ SCH (08:41)
[2018-08-13] MEDS: THIAMINE HCL 100 MG TABLET PO SCH (08:42)
[2018-08-13] MEDS: chlordiazePOXIDE HCl 5 MG CAP PO SCH (08:42)
[2018-08-13] MEDS: ASPIRIN EC 81 MG TAB PO SCH (08:42)
[2018-08-13] MEDS: FOLIC ACID 1 MG TABLET PO SCH (08:42)
== END 2018-08-13 13:05 | DRG 65 ==
LOC: ER 12:45 → ERHOLD 17:44 → 4TH 20:55
PROVIDERS: ADMIT Family Medicine
DX: I63.89 Other cerebral infarction (principal); E87.1 Hypo-osmolality and hyponatremia; E78.5 Hyperlipidemia, unspecified; I10 Essential (primary) hypertension; F17.210 Nicotine dependence, cigarettes, uncomplicated; F10.20 Alcohol dependence, uncomplicated; R26.0 Ataxic gait
CPT/HCPCS: 36415; 70450; 70544; 70549; 70553; 71046; 80048; 80053; 80061; 80076; 80307; 81003; 82962; 83735; 84484; 85025; 85610; 92526; 92610; 93005; 93306; 93880; 94760; 97110; 97112; 97116; 97163; 97166; 97530; 99285; A9577; J1100; J1650; J3411; J7030

== ENCOUNTER 2018-08-13 13:11 | Inpatient (IN) | payer BC ==
--- NOTE | 2018-08-13 10:44 | R.PREADM ---
SCREENING DATE AND TIME 08/13/2018 09:28 (PROGRAMMING INSTRUCTOR) ANTICIPATED REHAB ADMISSION DATE 08/15/2018 REFERRING FACILITY [facility] REFERRAL DATE AND TIME 08/13/2018 09:28 (PROGRAMMING INSTRUCTOR) ACUTE ADMIT DATE 08/05/2018 Previous Rehabilitation(s): No. REFERRING PHYSICIAN Farzana Oconnell REHAB FACILITY [facility] CLINICAL LIAISON Flori Montero PHYSICIAN REVIEWER Dr. Juan Jones M.D. [facility]# [id number] [id number] NAME JONY STEELE ADDRESS [address] [place] [address] [place]IP [phone] DATE OF 1960 AGE 58 SSN# [id number] GENDER male MARITAL STATUS RACE black ADMIT FROM 02 - [facility] PRE-HOSPITAL LIVING SETTING 01 - Home (private home/apt. board/care, assisted living, halfway, transitional living) HOME TYPE AND DETAILS Type of home: single family house # of steps to enter the residence: 0 # of steps within the residence: 0 # of levels in the residence: 1 PRE-HOSPITAL LIVING WITH Family/Relatives FAMILY SUPPORT Yes PHONE PRIMARY FAMILY CONTACT ON ADM.? no IS PRIMARY FAMILY CONTACT AUTH. REP.? no PHONE 1ST CONTACT ON ADM. no IS 1ST CONTACT AUTH. REP.? no PHONE 2ND CONTACT ON ADM.? no PATIENT EMPLOYMENT STATUS Employed [employer] PAYOR INFORMATION: 1ST PAYOR NAME [facility] 1ST PAYOR INJURY/ILLNESS DUE TO ACCIDENT? No ANOTHER LIBERTARIAN RESPONSIBLE? No PRIMARY REHAB/ACUTE DIAGNOSIS: 22x4 millimeter acute infarction involving the right basal ganglia extending into the right liang ra diata and right periventricular white matter REHAB IMPAIRMENT CATEGORY (ANNA): 01 Stroke (STR) MEETS 60% rule AFFECTED EXTREMITIES: RLE, and RUE PRIMARY DIAGNOSIS-RELATED SURGERIES: No surgeries related to the primary diagnosis were performed. COMORBID REHAB/ACUTE DIAGNOSES: - Non-Tiered Alcohol dependence (F10.2) tobacco abuse - N/A hypertension INTERVENTIONS: - Hypertension Fluid management Medications VS RISK FOR COMPLICATIONS: - Hypertension CVA Hypotension NH TIA SUMMARY OF ACUTE HOSPITALIZATION: Pt. is a 58 yo Right-handed black male. On 08/05/2018 Pt. presented [facility] with sudden onset of right-side weakn ess. On 08/05/2018 he was admitted to [facility] with diagnosis 22x4 millimeter acut e infarction involving the right basal ganglia extending into the right liang radiata and right chaya ventricular white matter. His impairment category is Stroke 01 - Right Body (Left Brain) (01.2). Pre-morbidly, Pt. was independent/mod-I in Self-Care, Sphincter Control, Transfers Control, Communica tion, Social Cognition, and Locomotion; and he had good Sphincter Control. Currently, he has deficits of Transfers Control, Endurance, Balance, Safety Awareness, Self-Care, and Locomotion. Pt. is now referred to [facility] for acute in-patient rehabilitation in order to maximize patient's functional independence in activities of daily living, strength, ROM, and mobi lity. Patient has realistic goal of being discharged at assistance level 6-Marjorie to reside at Home with Fam kate/Relatives. PAST MEDICAL HISTORY Alcohol dependence (F10.2) hypertension tobacco abuse MEDICATION ALLERGIES: No Known Drug Allergies (NKDA) ENVIRONMENTAL ALLERGIES: - Substance Allergies None Known - Other Allergies None Known CODE STATUS: Full code WEIGHT/HEIGHT/BMI: WEIGHT 137 lbs HEIGHT 5' 8" BMI 20.8 DIET: - Diet Type Regular - Diet - Solid Texture Regular - Diet - Liquid Texture Regular - Tube Feed N/A REVIEW OF SYSTEMS: - Gen Alert and awake Lying in bed No apparent distress Oriented to: person, time, and place - Vital Signs Vital signs stable, afebrile - CVS RRR VITAL SIGNS Temperature: 99.4 F SBP/DBP: 129/71 Pulse: 92 Resp: 18 Vital signs stable, afebrile CURRENT SPHINCTER CONTROL: Pre-hospital bladder status: continent # of bladder accidents in the last 7 days prior to screenin Pre-hospital bowel status: continent # of bowel accidents in the last 7 days prior to screenin Last Bowel Movement Date: 08/13/2018 DETAILED CURRENT FUNCTIONAL STATUS: - Bladder accident frequency: Ind - No accidents in the past 7 days - Bowel accident frequency: Ind - No accidents in the past 7 days - Walking score based on distance walked: 3(>=150ft) FUNCTIONAL STATUS: - Self-Care A. Eating Ind Ind B. Grooming Ind sup C. Bathing Ind Brody D. Dressing - Upper Ind sup E. Dressing - Lower Ind Brody F. Toileting Ind Brody - Sphincter Control G: Bladder control Ind Ind H: Bowel control Ind Ind - Transfers Control I. Bed/Chair/Wheelchair Ind Brody J. Toilet Ind Brody K. Tub/Shower Ind Brody - Locomotion L. Walk/Wheelchair (B) Ind CGA-to-Brody M. Stairs Ind ADNO - Communication N. Comprehension (B) Ind Ind O. Expression (B) Ind Ind - Social Cognition P. Social Interaction Ind Marjorie Q. Problem Solving Ind Ind R. Memory Ind Ind - Endurance Fair - Balance Poor - Safety Awareness Fair CURRENT FUNC. DEFICITS: Transfers Control, Endurance, Balance, Safety Awareness, Self-Care, and Locomotion THERAPY NOTES FROM ACUTE CARE: Attached. SPECIAL NEEDS: - Safety Concerns Skin breakdown precautions needed due to skin breakdown risk PRECAUTIONS: - Weight Bearing Precaution WBAT right LE PATIENT NEEDS ACTIVE AND ONGOING THERAPEUTIC INTERVENTION OF MULTIPLE THERAPY DISCIPLINES, INCLUDING: - Occupational Therapy Evaluate and Treat. Cognitive Retraining. Visual Perceptual Training. - Speech Therapy Memory Strategies. Expressive Language Skills. Speech Intelligibility Training. Cognitive Training. R eceptive Language Skills. - Physical Therapy Evaluate and Treat. PATIENT NEEDS CLOSE MEDICAL SUPERVISION BY A REHABILITATION PHYSICIAN FOR: Bowel and Bladder Management Coordination of Treatment Team Medical and Co-Morbidity Management PATIENT REQUIRES 24X7 REHAB NURSING FOR MEDICAL AND FUNCTIONAL MGT. OF THE FOLLOWING DEFICITS: ADL's Ambulation Bowel and Bladder Management Cognition Communication Disease Management Medication Management Patient/Family Education Providing Safe Environment Transfers PATIENT REQUIRES INTENSIVE, COORDINATED INTERDISCIPLINARY APPROACH TO REHAB: Arranging Home Equipment/Services Discharge Planning Family Intervention/Training Grinding Operator/Case Management PATIENT REHAB POTENTIAL: Expected level of measurable improvement will be of a practical value to patient's functional capacit y or adaptations to impairments Has a viable Discharge Plan Medically appropriate; condition is sufficiently stable to participate in intensive rehab program Patient is able and expected to receive 3 hours of individualized therapy daily on at least 5 of ever y 7 days Patient's prognosis for significant practical improvement within a reasonable period of time appears Good DISCHARGE PLAN: - Estimated Length of Stay (days) 17. - Consensus on plan Discharge plan has been discussed with primary caregiver. Patient/Family is in agreement with the wilma n. Primary caregiver is in agreement with the plan. - Patient/Family Goals Return home with assistance. - Planned Living Setting Upon Discharge Home, to live with Family/Relatives. RECOMMENDED CARE LEVEL: IRF RECOMMENDATION DETAILS: Recommended Admission to Comprehensive Rehabilitation Program to Increase Functional [place] SCREENER'S COMPLETENESS CONFIRMATION: - Screening Confirmation The patient data collection on this preadmission screening form is finished PHYSICIANS REVIEW AND ADMISSION DETERMINATION Admit - Based on my review of the Pre-Admission Screening results, in my medical judgment and experie nce, I concur with the findings and recommend admission to [facility], as this patient requires an IRF level of care. SIGNATURE PANEL: Clinical Liaison - [electronically] signed by Tita Wheatley on 08/13/2018 at 10:37 (PROGRAMMING INSTRUCTOR) Clinical Liaison - [electronically] signed by Flori Montero on 08/13/2018 at 10:39 (PROGRAMMING INSTRUCTOR) Physician Reviewer - [electronically] signed by Dr. Juan Jones M.D. on 08/13/2018 at 10:43 (PROGRAMMING INSTRUCTOR )
[2018-08-13] MEDS ORDERED: DOCUSATE NA/SENNA CONC 1 TAB PO PRN (14:58)
[2018-08-13] MEDS ORDERED: MELATONIN 3 MG TABLET PO PRN (14:58)
--- NOTE | 2018-08-13 16:17 | R.HP ---
FACILITY: [facility] ENCOUNTER DATE AND TIME: 08/13/2018 16:11 (BUSINESS SUPPORT SPECIALIST) MR#: [id number] NAME JONY STEELE ADDRESS: [address] [place] [address]: [place] [address]IP [phone] PHONE: DATE OF : 1960 AGE: 58 SSN# [id number] GENDER: Male DEXTERITY Right-handed MARITAL STATUS RACE Black PRE-HOSPITAL LIVING SETTING 01 - Home (private home/apt. board/care, assisted living, long-term, transitional living) PRE-HOSPITAL LIVING WITH Family/Relatives ENCOUNTER PHYSICIAN: Dr. Juan Jones M.D. REFERRING DOCTOR: Farzana Oconnell DATE OF ADMISSION: 08/13/2018 13:11 (BUSINESS SUPPORT SPECIALIST) REFERRING FACILITY [facility] HOME TYPE AND DETAILS: Type of home: single family house # of steps to enter the residence: 0 # of steps within the residence: 0 # of levels in the residence: 1 ADMISSION DIAGNOSIS: 22x4 millimeter acute infarction involving the right basal ganglia extending into the right liang ra diata and right periventricular white matter ONSET DATE: 08/03/2018 PRIMARY DIAGNOSIS-RELATED SURGERIES: No surgeries related to the primary diagnosis were performed. SECONDARY/COMORBID DIAGNOSES (TIERED): - Non-Tiered Alcohol dependence (F10.2) tobacco abuse - N/A hypertension HISTORY OF PRESENT ILLNESS (HPI): Pt. is a 58 yo Right-handed black male. On 08/05/2018 Pt. presented to [facility] with sudden onset of right-side weakn ess. On 08/05/2018 he was admitted to [facility] with diagnosis 22x4 millimeter acut e infarction involving the right basal ganglia extending into the right liang radiata and right chaya ventricular white matter. His impairment category is Stroke 01 - Right Body (Left Brain) (01.2). Pre-morbidly, Pt. was independent/mod-I in Self-Care, Sphincter Control, Transfers Control, Communica tion, Social Cognition, and Locomotion; and he had good Sphincter Control. Currently, he has deficits of Transfers Control, Endurance, Balance, Safety Awareness, Self-Care, and Locomotion. Pt. is now referred to [facility] for acute in-patient rehabilitation in order to maximize patient's functional independence in activities of daily living, strength, ROM, and mobi lity. Patient has realistic goal of being discharged at assistance level 6-Marjorie to reside at Home with Fam kate/Relatives. MEDICATION ALLERGIES: No Known Drug Allergies (NKDA) ENVIRONMENTAL ALLERGIES: - Substance Allergies None Known - Other Allergies None Known PAST MEDICAL HISTORY: Alcohol dependence (F10.2) hypertension tobacco abuse FAMILY HISTORY: Family history is not contributory. SOCIAL HISTORY: - Home Living Family/Relatives REVIEW OF SYSTEMS: - Gen No Chills Fatigue No Fever - Eyes No Double Vision No itchiness - ENMT No Difficulty Swallowing - CVS No Chest Discomfort No Chest Pain Fatigue No Weight Gain - Resp No Cough No Shortness of Breath - GI Continent No Abdominal Pain No Constipation No Diarrhea - Continent No Kidney Pain No Painful Urination No Urinary Urgency - MSK No Joint Pain Muscle Cramps Stiffness - Skin No Itching No Rash No Suspicious Lesions - Neuro Coordination Difficulty No Difficulty with Concentration No Memory Loss No Seizures Weakness - Psych No Anxiety No Depression No HIV Exposure No Persistent Infections No Seasonal Allergies - Endo No Cold/Heat Intolerance No Excessive Hunger No Excessive Thirst No Excessive Urination PHYSICAL EXAM - Gen Alert and awake Lying in bed No apparent distress Oriented to: person, time, and place - Skin No breakdown No abnormalities - Eyes No abnormalities - ENMT No abnormalities - Neck No abnormalities - CVS RRR - Chest No abnormalities - Resp Clear to auscultation - Abd +bowel sounds - GI nondistended Deferred - No abnormalities - Ext no edema - MSK 4+/5 weakness in right upper and lower extremities - Neuro 4/5 strength right upper and lower extremities. - Psych No abnormalities VITAL SIGNS Temperature: 98 F SBP/DBP: 140/83 Pulse: 92 Resp: 18 NURSING: - Shower allowing shower - Bladder care per protocol - Skin care per protocol PRECAUTIONS: - Weight Bearing Precaution WBAT right LE ACTIVITIES OOB only with supervision FUNCTIONAL STATUS: - Self-Care A. Eating Ind Ind B. Grooming Ind sup C. Bathing Ind Brody D. Dressing - Upper Ind sup E. Dressing - Lower Ind Brody F. Toileting Ind Brody - Sphincter Control G: Bladder control Ind Ind H: Bowel control Ind Ind - Transfers Control I. Bed/Chair/Wheelchair Ind Brody J. Toilet Ind Brody K. Tub/Shower Ind Brody - Locomotion L. Walk/Wheelchair (B) Ind CGA-to-Brody M. Stairs Ind ADNO - Communication N. Comprehension (B) Ind Ind O. Expression (B) Ind Ind - Social Cognition P. Social Interaction Ind Marjorie Q. Problem Solving Ind Ind R. Memory Ind Ind - Endurance Fair - Balance Poor - Safety Awareness Fair CURRENT FUNC. DEFICITS: Transfers Control, Endurance, Balance, Safety Awareness, Self-Care, and Locomotion ASSESSMENT: Pt. is a 58 yo Right-handed black male.On 08/05/2018 Pt. presented [address] [facility] [place] [place] with sudden onset of right-side weakness.On 08/05/2018 he was admitted to [facility] with diagnosis 22x4 millimeter acute infarction involving the right basal ganglia extending i nto the right liang radiata and right periventricular white matter.His impairment category is Stroke 01 - Right Body (Left Brain) (01.2).Pre-morbidly, Pt. was independent/mod-I in Self-Care, Sphincter Control, Transfers Control, Communication, Social Cognition, and Locomotion; and he had good Sphinct er Control.Currently, he has deficits of Transfers Control, Endurance, Balance, Safety Awareness, Kristen f-Care, and Locomotion.Pt. is now referred to [facility] for acute in-patient rehabilitation in order to maximize patient's functional independence in activities of daily living, strength, ROM, and mobility.- Rehab Goal Patient has realistic goal of being discharged at assistance level 6-Marjorie to reside at Home with Fam kate/Relatives. REHAB PLAN: for Dementia, TBI, Stroke, or others - Physical Therapy Gait dysfunction - to improve, our physical therapists will perform initial evaluation of pt's status upon admission and devise an individualized program for Gait Training, and Wheel Chair mobility Inability to transfer - to improve, our physical therapists will perform initial evaluation of pt's s tatus upon admission and devise an individualized program for Bed mobility Need for home safety evaluation - to improve, our physical therapists will perform initial evaluation of pt's status upon admission and devise an individualized program for Home Evaluation Need in caregiver upon discharge - to improve, our physical therapists will perform initial evaluatio n of pt's status upon admission and devise an individualized program for Caregiver Training New precaution - to improve, our physical therapists will perform initial evaluation of pt's status u ronit admission and devise an individualized program for Patient precaution education Poor balance - to improve, our physical therapists will perform initial evaluation of pt's status upo n admission and devise an individualized program for Balance Training Poor endurance - to improve, our physical therapists will perform initial evaluation of pt's status u ronit admission and devise an individualized program for Endurance Training Weakness - to improve, our physical therapists will perform initial evaluation of pt's status upon ad mission and devise an individualized program for Aquatic Therapy, Neuromuscular Reeducation, and Stre ngthening Achieving independence - to improve, our physical therapists will perform initial evaluation of pt's status upon admission and devise an individualized program for Community Reintegration Activities - Occupational Therapy ADL deficits - to improve, our occupation therapists will perform initial evaluation of pt's status u ronit admission and devise an individualized program for Bathing, Bed mobility, Community Reintegration , Cooking, Dressing, Eating, Fine Motor Skills, Grooming, Homemaking, Kitchen Mobility, Laundry, Bere ent Education, Safety Awareness, Splinting - Positioning, Transfers(Toilet, Tub, Shower), and Wheel C hair Management Need for field care manager - to improve, our occupation therapists will perform initial evaluation of pt's s tatus upon admission and devise an individualized program for Caregiver Training Weakness - to improve, our occupation therapists will perform initial evaluation of pt's status upon admission and devise an individualized program for Aquatic Therapy, Balance, Endurance, UE ROM, and U E strengthening MEDICAL PLAN: - Diet Type Start Regular - Diet - Liquid Texture Start Regular - Tube Feed Start N/A - Bladder care per protocol - Weight Bearing Precaution WBAT right LE - Skin care per protocol - Diet - Solid Texture Regular - Shower shower DISCHARGE PLAN: - Estimated Length of Stay (days) 17. - Consensus on plan Discharge plan has been discussed with primary caregiver. Patient/Family is in agreement with the wilma n. Primary caregiver is in agreement with the plan. - Patient/Family Goals Return home with assistance. - Planned Living Setting Upon Discharge Home, to live with Family/Relatives. SIGNATURE PANEL: (BUSINESS SUPPORT SPECIALIST)
--- NOTE | 2018-08-13 16:20 | PAPE ---
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 Juan Jones M.D. ADMISSION DIAGNOSIS: 22x4 millimeter acute infarction involving the right basal ganglia extending into the right liang ra diata and right periventricular white matter ONSET DATE 08/03/2018 SECONDARY/COMORBID DIAGNOSES TIERED: - Non-Tiered Alcohol dependence (F10.2) tobacco abuse - N/A hypertension POST-ADMISSION FUNCTIONAL/MEDICAL STATUS: - Bladder Same accident frequency: Ind - No accidents in the past 7 days - Bowel Same accident frequency: Ind - No accidents in the past 7 days - Walking Same score based on distance walked: 3(>=150ft) STATUS CHANGE EVALUATION: No change in Functional or Medical Status is identified compared with Pre-Admission screening. PATIENT NEEDS CLOSE MEDICAL SUPERVISION BY A REHABILITATION PHYSICIAN FOR: Bowel and Bladder Management Coordination of Treatment Team Medical and Co-Morbidity Management PATIENT REQUIRES 24X7 REHAB NURSING FOR MEDICAL AND FUNCTIONAL MGT. OF THE FOLLOWING DEFICITS: ADL's Ambulation Bowel and Bladder Management Cognition Communication Disease Management Medication Management Patient/Family Education Providing Safe Environment Transfers PATIENT REQUIRES INTENSIVE, COORDINATED INTERDISCIPLINARY APPROACH TO REHAB: Arranging Home Equipment/Services Discharge Planning Family Intervention/Training Whizzer/Case Management LIST OF IDENTIFIED AND POTENTIAL PROBLEMS: Alteration in leisure activities Bladder, Incontinence Blood Pressure, Hypertension/hypotension Issues Bowel, Incontinence Infection, Actual or Potential Mobility Impaired Pain, Alteration in Comfort Self Care Deficit Skin Integrity, Actual or Potential Urinary Tract Infection (UTI), Actual or Potential RISK FOR COMPLICATIONS - Hypertension CVA. Hypotension. MD. TIA. INTERVENTIONS - Hypertension PATIENT COULD BE AT RISK FOR COMPLICATIONS FROM ADVERSE MEDICAL CONDITIONS DUE TO HIS/HER COMORBIDITI ES AND THE RIGORS OF THE INTENSIVE REHABILLITATION PROGRAM. METHODS OR INTERVENTIONS TO AVOID COMPLIC ATIONS INCLUDE: - Bleeding Stroke patients assessed for lethargy or change in status. - Infection Clinical staff to assess and manage the signs and symptoms of infection including fever, redness, war mth, etc. - Urinary Tract Infection - Aspiration Clinical staff will assess and manage coughing, drooling, congestion. - Falls Patient will be evaluated for Fall Precautions and will be placed on Fall Precautions as indicated pe r protocol. - Skin Breakdown Nursing will assess skin daily using assessment tool and will place on Skin Breakdown Precautions as indicated per protocol. - Pain Clinical staff may employ non-medication methods such as massage, distraction, decrease stimulus, etc . as needed. Clinical staff will assess patient's pain level every shift per protocol to assess and e nsure pain management effectiveness. Medications will be given and the pain level re-assessed. PRELIMINARY PLAN OF CARE: - Physical Therapy Patient needs Physical Therapy for a daily minimum of 1.5 hours at least 5 out of 7 days, to improve: Mobility, Strengthening, Transfers, Stretching, ROM, Endurance, Ability to manage stairs, Gait, and Balance. - Speech Therapy Patient needs Speech Therapy for a daily minimum of 0.5 hours at least 5 out of 7 days, to improve: S wallowing, Cognition, Language Skills, and Compensatory Strategies. - Rehabilitation Nursing Patient requires 24x7 Rehabilitation Nursing for: Pain Issues, Identifying and preventing risk factor s, Monitoring and reporting current medical conditions, Assisting with ambulation and transfer, Helen ting with all ADL-s, Teaching patients about disease process and medications, Family teaching, Provid ing safe environment, Bowel and Bladder Issues, Skin Integrity, and Medication Management. Patient needs Whizzer and/or Case Management for: Discharge Planning, Arranging Home Equipmen t or Services, and Family Interventions. - Dietary and Nutrition Services Patient needs Dietary and Nutrition Services for: Adequate Nutrition, Nutritional Supplements, and Nu tritional Education. - Occupational Therapy Patient needs Occupational Therapy for a daily minimum of 1.5 hours at least 5 out of 7 days, to impr ove Activities of Daily Living, including: Eating, Grooming, Bathing, Dressing, Toileting, Toilet Tra nsfers, Community Reintegration, Higher functional activities, Adaptive Equipment, Splinting, Househo ld Tasks, and Other activities as determined. POTENTIAL FUNCTIONAL GOALS FOR PATIENT TO ACHIEVE BY DISCHARGE: - Safety Precaution Patient will remain free from falls or injury at time of discharge. - Bed Mobility Patient will perform bed mobility at 4-Brody level of assistance. - Transfers Patient will complete transfers from bed to chair at 4-Brody level of assistance. - Mobility Patient will ambulate 150 ft with 4-Brody level of assistance with RW. PATIENT REHAB POTENTIAL Expected level of measurable improvement will be of a practical value to patient's functional capacit y or adaptations to impairments Has a viable Discharge Plan Medically appropriate; condition is sufficiently stable to participate in intensive rehab program Patient is able and expected to receive 3 hours of individualized therapy daily on at least 5 of ever y 7 days Patient's prognosis for significant practical improvement within a reasonable period of time appears Good DISCHARGE PLAN: - Estimated Length of Stay (days) 17. - Consensus on plan Discharge plan has been discussed with primary caregiver. Patient/Family is in agreement with the wilma n. Primary caregiver is in agreement with the plan. - Patient/Family Goals Return home with assistance. - Planned Living Setting Upon Discharge Home, to live with Family/Relatives. CONCLUSION ON REHABILITATION NECESSITY: I have evaluated patient's pre-admission functional status and, comparing it to the patient's post-ad mission functional status now, I conclude that the pre-admission assessment was accurate. Patient's c ondition on admission supports the medical necessity of admission to IRF. It is safe to proceed with patient's therapy program. SIGNATURE PANEL: (CENTRIFUGAL SEPARATOR)
--- NOTE | 2018-08-13 17:22 | FAST ---
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 Juan Jones M.D. ADMISSION DIAGNOSIS: - Stroke 01 - Right Body (Left Brain) (01.2) 22x4 millimeter acute infarction involving the right basal ganglia extending into the right liang ra diata and right periventricular white matter. EATING: Activity did not occur on this shift EATING - SCORE: 0-UNK GROOMING: Activity did not occur on this shift GROOMING - SCORE: 0-UNK BATHING: Activity did not occur on this shift BATHING - SCORE: 0-UNK DRESSING - UPPER BODY: Activity did not occur on this shift Patient is not dressing in public clothing ARTICLES SCORE Total number of steps: 0 DRESSING - UPPER BODY - SCORE: 0-UNK DRESSING - LOWER BODY: Activity did not occur on this shift Patient is not dressing in public clothing ARTICLES SCORE Total number of steps: 0 DRESSING - LOWER BODY - SCORE: 0-UNK TOILETING: Activity did not occur on this shift TOILETING - SCORE: 0-UNK BLADDER MANAGEMENT: Activity did not occur on this shift BLADDER MANAGEMENT - SCORE: 7-IND BOWEL MANAGEMENT: Activity did not occur on this shift BOWEL MANAGEMENT - SCORE: 7-IND TRANSFERS: BED, CHAIR, WHEELCHAIR: TRANSFERS: BED, CHAIR, WHEELCHAIR - STEP 1: Does the patient require assistance of a person or device, or need extra time with bed, chair, or whe elchair transfers? Yes. TRANSFERS: BED, CHAIR, WHEELCHAIR - STEP 2: Does the patient require the assistance of a helper? Yes. TRANSFERS: BED, CHAIR, WHEELCHAIR - STEP 3: How much assistance does the patient require from the helper? Steadying/guiding assistance TRANSFERS: BED, CHAIR, WHEELCHAIR - SCORE: 4-MIN TRANSFERS: TOILET: Activity did not occur on this shift TRANSFERS: TOILET - SCORE: 0-UNK TRANSFERS: SHOWER: Activity did not occur on this shift TRANSFERS: SHOWER - SCORE: 0-UNK TRANSFERS: TUB: Activity did not occur on this shift TRANSFERS: TUB - SCORE: 0-UNK LOCOMOTION: WALK: LOCOMOTION: WALK - STEP 1: Does the patient need help from a person or device, or need extra time to walk 150 feet? Yes. LOCOMOTION: WALK - STEP 2: How much assistance does the patient require to walk a minimum of 150 feet? Only incidental help such as contact guarding or steadying LOCOMOTION: WALK - SCORE: 4-MIN LOCOMOTION: WHEELCHAIR: Activity did not occur on this shift LOCOMOTION: WHEELCHAIR - SCORE: 0-UNK LOCOMOTION: STAIRS: LOCOMOTION: STAIRS - STEP 1: Does the patient need help to go up and down 12 to 14 stairs? Yes. LOCOMOTION: STAIRS - STEP 2: How much assistance does the patient need from the helper to go a minimum of 12 to 14 stairs? Only in cidental help such as contact guarding or steadying LOCOMOTION: STAIRS - SCORE: 4-MIN COMPREHENSION: COMPREHENSION - SCORE: 0-UNK EXPRESSION EXPRESSION - SCORE: 0-UNK SOCIAL INTERACTION: SOCIAL INTERACTION - SCORE: 0-UNK PROBLEM SOLVING: PROBLEM SOLVING - SCORE: 0-UNK MEMORY: MEMORY - SCORE: 0-UNK SIGNATURE PANEL: The following modified sections: Transfers: Bed, Chair, Wheelchair - Score, Transfers: Toilet - Score , Locomotion: Walk - Score, Locomotion: Wheelchair - Score, Locomotion: Stairs - Score were [electron stevan] signed by Navin Albert PT on ThuAug 13 2018 17:21:58 GMT-0600 (Central Standard Time)
--- NOTE | 2018-08-13 17:27 | FAST ---
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 Juan Jones M.D. ADMISSION DIAGNOSIS: - Stroke 01 - Right Body (Left Brain) (.2) 22x4 millimeter acute infarction involving the right basal ganglia extending into the right liang ra diata and right periventricular white matter. EATING: EATING - STEP 1: Does the patient require the assistance of a person or device, or need extra time when eating? No. EATING - SCORE: 7-IND GROOMING: Comb/brush hair Wash, rinse, and dry face Wash, rinse, and dry hands GROOMING - STEP 1: Does the patient require the assistance of a person or device, or need extra time when grooming? No. GROOMING - SCORE: 7-IND BATHING: Abdomen Buttocks Chest Left arm Left lower leg and foot Left upper leg Perineal area Right arm Right lower leg and foot Right upper leg BATHING - STEP 1: Does the patient require the assistance of a person or device, or need extra time when bathing? Yes. BATHING - STEP 2: Does the patient require the assistance of a helper? Yes. BATHING - STEP 3: How much assistance does the patient require from the helper? Only supervision, cuing, coaxing, instr uctions, encouragement BATHING - SCORE: 5-SUP DRESSING - UPPER BODY: T-shirt/pullover shirt (four steps) ARTICLES SCORE Total number of steps: 4 DRESSING - UPPER BODY - STEP 1: Does the patient require help from a person or device, or need extra time when dressing above the bian[address] st? Yes. DRESSING - UPPER BODY - STEP 2: Does the patient require the assistance of a helper? Yes. DRESSING - UPPER BODY - STEP 3: Does the helper touch the patient while dressing? No. DRESSING - UPPER BODY - SCORE: 5-SUP DRESSING - LOWER BODY: Elastic waist pants (three steps) Sock - Left foot (one step) Sock - Right foot (one step) Tied or buckled shoe - Left foot (two steps) Tied or buckled shoe - Right foot (two steps) Underwear (three steps) ARTICLES SCORE Total number of steps: 12 DRESSING - LOWER BODY - STEP 1: Does the patient require help from a person or device, or need extra time when dressing below the bian[address] st? Yes. DRESSING - LOWER BODY - STEP 2: Does the patient require the assistance of a helper? Yes. DRESSING - LOWER BODY - STEP 3: Does the helper touch the patient while dressing? No. DRESSING - LOWER BODY - SCORE: 5-SUP TOILETING: TOILETING - STEP 1: Does the patient require the assistance of a person or device, or need extra time with toileting? Yes . TOILETING - STEP 2: Does the patient require the assistance of a helper? Yes. TOILETING - STEP 3: How much assistance does the patient require from the helper? Only supervision TOILETING - SCORE: 5-SUP BLADDER MANAGEMENT: Activity did not occur on this shift BLADDER MANAGEMENT - SCORE: 7-IND BOWEL MANAGEMENT: Activity did not occur on this shift BOWEL MANAGEMENT - SCORE: 7-IND TRANSFERS: BED, CHAIR, WHEELCHAIR: Activity did not occur on this shift TRANSFERS: BED, CHAIR, WHEELCHAIR - SCORE: 0-UNK TRANSFERS: TOILET: TRANSFERS: TOILET - STEP 1: Does the patient require the assistance of a person or device, or need extra time with toilet transfe rs? Yes. TRANSFERS: TOILET - STEP 2: Does the patient require the assistance of a helper? Yes. TRANSFERS: TOILET - STEP 3: How much assistance does the patient require from the helper? Only supervision, cuing, coaxing, OR he lp to set out transfer equipment or to lock brakes and/or lift foot rests TRANSFERS: TOILET - SCORE: 5-SUP TRANSFERS: SHOWER: Activity did not occur on this shift TRANSFERS: SHOWER - SCORE: 0-UNK TRANSFERS: TUB: TRANSFERS: TUB - STEP 1: Does the patient require the assistance of a person or device, or need extra time with tub transfers? Yes. TRANSFERS: TUB - STEP 2: Does the patient require the assistance of a helper? Yes. TRANSFERS: TUB - STEP 3: How much assistance does the patient require from the helper? Incidental help such as contact guardin g or steadying, OR help to lift one leg into the tub TRANSFERS: TUB - SCORE: 4-MIN LOCOMOTION: WALK: Activity did not occur on this shift LOCOMOTION: WALK - SCORE: 0-UNK LOCOMOTION: WHEELCHAIR: Activity did not occur on this shift LOCOMOTION: WHEELCHAIR - SCORE: 0-UNK LOCOMOTION: STAIRS: Activity did not occur on this shift LOCOMOTION: STAIRS - SCORE: 0-UNK COMPREHENSION: COMPREHENSION: TYPE: Both COMPREHENSION - STEP 1: Does the patient require help from a person or device, or need extra time to understand complex and a bstract ideas (such as current events, finances, discharge planning, medical issues, relationships, e tc)? No. COMPREHENSION - STEP 2: Does the patient need extra time, require an assistive device (such as glasses for visual comprehensi on or a hearing aid for auditory comprehension) or does s/he have mild difficulty understanding compl ex and abstract information? Yes. COMPREHENSION - SCORE: 6-RAAD EXPRESSION EXPRESSION: TYPE: Both EXPRESSION - STEP 1: Does the patient require help from a person or device, or need extra time expressing complex and abst ract ideas (such as current events, finances, discharge planning, medical issues, relationships, etc) ? No. EXPRESSION - STEP 2: Does the patient need extra time, require an assistive device (such as augmentive communication syste m or a communication board), OR does s/he have mild difficulty expressing complex and abstract ideas (including mild dysarthria or mild word-find problems)? Yes. EXPRESSION - SCORE: 6-RAAD SOCIAL INTERACTION: SOCIAL INTERACTION - STEP 1: Does the patient require a helper to interact with others in social and therapeutic situations? No. SOCIAL INTERACTION - STEP 2: Does the patient need extra time in social situations, OR does s/he interact with staff, other patien ts, and family members ONLY in structured environments, OR does s/he require medication for social in teraction? No. SOCIAL INTERACTION - SCORE: 7-IND PROBLEM SOLVING: PROBLEM SOLVING - STEP 1: Does the patient need help from a person or device, or need extra time to solve complex problems such as managing a checking account or confronting interpersonal problems? No. PROBLEM SOLVING - STEP 2: Does the patient require extra time to make decisions or solve problems, OR does s/he have slight dif ficulty reading, initiating, or self-correcting in unfamiliar situations? Yes, patient needs extra ti me. PROBLEM SOLVING - SCORE: 6-RAAD MEMORY: MEMORY - STEP 1: Does the patient need help from a person or device, or need extra time to remember frequently encount ered people, daily routines, and executing requests? No. MEMORY - STEP 2: Does the patient have slight difficulty recognizing frequently encountered people, daily routines, or executing requests without the need for repetition or using self-initiated or environmental cues to remember? Yes. MEMORY - SCORE: 6-RAAD SIGNATURE PANEL: The following modified sections: Eating - Score, Grooming - Score, Bathing - Score, Dressing - Upper Body - Score, Dressing - Lower Body - Score, Toileting - Score, Transfers: Bed, Chair, Wheelchair - S core, Transfers: Toilet - Score, Transfers: Shower - Score, Transfers: Tub - Score, Comprehension - S core, Expression - Score, Social Interaction - Score, Problem Solving - Score, Memory - Score were [e lectronically] signed by Mayte Perez OT on ThuAug 13 2018 17:27:01 T-0600 (Central Standard T dave)
[2018-08-13 19:06] LABS: Urine Appearance CLEAR; Urine Bilirubin NEGATIVE (NEG); Urine Blood NEGATIVE (NEG); Urine Color YELLOW; Urine Glucose NEGATIVE (NEG); Urine Protein 1+ (NEG); Urine Specific Gravity 1.015 (1.005-1.030); Urine Urobilinogen 0.2 mg/dL (0.2-1.0)
[2018-08-13] MEDS: APIXABAN 2.5 MG TABLET PO SCH (19:31)
[2018-08-13 20:30] LABS: Urine Bacteria <20 /HPF (NONE SEEN); Urine Culture Reflex Order NOT NEEDED; Urine RBC <5 /HPF (NONE SEEN)
[2018-08-13] MEDS: ATORVASTATIN 80 MG TAB PO SCH (20:38)
[2018-08-14 07:09] LABS: Absolute Lymphocytes (CBC) 1.1 K/uL (0.7-4.9); Absolute Neutrophil 2.9 K/uL (1.8-8.0); Basophils % 0.9 % (0-1.3); Eosinophils % 6.1 % (0-4.4); Hematocrit 38.5 % (39.6-49.0); Lymphocytes % 20.1 % (15.3-44.8); MPV 8.6 fL (7.6-11.3); Monocytes % 18.2 % (3.3-12.3); RBC Red Blood Cell Count 4.04 M/uL (4.33-5.43)
[2018-08-14 07:32] LABS: Albumin 3.2 g/dL (3.4-5.0); Magnesium 1.9 mg/dL (1.8-2.4); Potassium 4.3 mmol/L (3.5-5.1); Prealbumin 20.7 mg/dL (20-40)
[2018-08-14] MEDS ORDERED: HOME MED 1 EA UNK PO SCH (08:00)
[2018-08-14] MEDS ORDERED: HOME MED 1 EA UNK (Lisinopril/Hydrochlorothiazide [Lisinopril-Hctz 10-12.5 Mg Tab] 1 TAB) PO SCH (08:00)
[2018-08-14] MEDS ORDERED: chlordiazePOXIDE HCl 5 MG CAP PO SCH (08:00)
[2018-08-14] MEDS: THIAMINE HCL 100 MG TABLET PO SCH (08:06)
[2018-08-14] MEDS: FOLIC ACID 1 MG TABLET PO SCH (08:07)
[2018-08-14] MEDS: MULTIVITAMIN TAB PO SCH (08:07)
[2018-08-14] MEDS: APIXABAN 2.5 MG TABLET PO SCH ×2 (08:07→20:18)
--- NOTE | 2018-08-14 11:27 | FAST ---
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 Juan Jones M.D. ADMISSION DIAGNOSIS: - Stroke 01 - Right Body (Left Brain) (.2) 22x4 millimeter acute infarction involving the right basal ganglia extending into the right liang ra diata and right periventricular white matter. EATING: Activity did not occur on this shift EATING - SCORE: 0-UNK GROOMING: Activity did not occur on this shift GROOMING - SCORE: 0-UNK BATHING: Activity did not occur on this shift BATHING - SCORE: 0-UNK DRESSING - UPPER BODY: Patient is not dressing in public clothing ARTICLES SCORE Total number of steps: 0 DRESSING - UPPER BODY - SCORE: 0-UNK DRESSING - LOWER BODY: Patient is not dressing in public clothing ARTICLES SCORE Total number of steps: 0 DRESSING - LOWER BODY - SCORE: 0-UNK TOILETING: TOILETING - STEP 1: Does the patient require the assistance of a person or device, or need extra time with toileting? Yes . TOILETING - STEP 2: Does the patient require the assistance of a helper? Yes. TOILETING - STEP 3: How much assistance does the patient require from the helper? Only supervision TOILETING - SCORE: 5-SUP BLADDER MANAGEMENT: BLADDER MANAGEMENT - STEP 1: Does the patient control the bladder completely and intentionally without equipment or devices or med ications, and is always continent? No. BLADDER MANAGEMENT - STEP 2: Does the patient require the assistance of a helper? Yes. BLADDER MANAGEMENT - STEP 3: How much assistance does the patient require from the helper? Only set-up of equipment - such as plac ing it within reach of the patient or emptying a device - to maintain either satisfactory voiding pat tern or managing an external device, such as an absorbent pad, ileal device, or catheter BLADDER MANAGEMENT - SCORE: 5-SUP BOWEL MANAGEMENT: Activity did not occur on this shift BOWEL MANAGEMENT - SCORE: 7-IND TRANSFERS: BED, CHAIR, WHEELCHAIR: TRANSFERS: BED, CHAIR, WHEELCHAIR - STEP 1: Does the patient require assistance of a person or device, or need extra time with bed, chair, or whe elchair transfers? Yes. TRANSFERS: BED, CHAIR, WHEELCHAIR - STEP 2: Does the patient require the assistance of a helper? Yes. TRANSFERS: BED, CHAIR, WHEELCHAIR - STEP 3: How much assistance does the patient require from the helper? Only supervision TRANSFERS: BED, CHAIR, WHEELCHAIR - SCORE: 5-SUP TRANSFERS: TOILET: Activity did not occur on this shift TRANSFERS: TOILET - SCORE: 0-UNK TRANSFERS: SHOWER: Activity did not occur on this shift TRANSFERS: SHOWER - SCORE: 0-UNK TRANSFERS: TUB: Activity did not occur on this shift TRANSFERS: TUB - SCORE: 0-UNK LOCOMOTION: WALK: Activity did not occur on this shift LOCOMOTION: WALK - SCORE: 0-UNK LOCOMOTION: WHEELCHAIR: Activity did not occur on this shift LOCOMOTION: WHEELCHAIR - SCORE: 0-UNK COMPREHENSION: COMPREHENSION: TYPE: Both COMPREHENSION - STEP 1: Does the patient require help from a person or device, or need extra time to understand complex and a bstract ideas (such as current events, finances, discharge planning, medical issues, relationships, e tc)? No. COMPREHENSION - STEP 2: Does the patient need extra time, require an assistive device (such as glasses for visual comprehensi on or a hearing aid for auditory comprehension) or does s/he have mild difficulty understanding compl ex and abstract information? Yes. COMPREHENSION - SCORE: 6-RAAD EXPRESSION EXPRESSION: TYPE: Both EXPRESSION - STEP 1: Does the patient require help from a person or device, or need extra time expressing complex and abst ract ideas (such as current events, finances, discharge planning, medical issues, relationships, etc) ? No. EXPRESSION - STEP 2: Does the patient need extra time, require an assistive device (such as augmentive communication syste m or a communication board), OR does s/he have mild difficulty expressing complex and abstract ideas (including mild dysarthria or mild word-find problems)? Yes. EXPRESSION - SCORE: 6-RAAD SOCIAL INTERACTION: SOCIAL INTERACTION - STEP 1: Does the patient require a helper to interact with others in social and therapeutic situations? No. SOCIAL INTERACTION - STEP 2: Does the patient need extra time in social situations, OR does s/he interact with staff, other patien ts, and family members ONLY in structured environments, OR does s/he require medication for social in teraction? Yes, patient needs extra time SOCIAL INTERACTION - SCORE: 6-RAAD PROBLEM SOLVING: PROBLEM SOLVING - STEP 1: Does the patient need help from a person or device, or need extra time to solve complex problems such as managing a checking account or confronting interpersonal problems? No. PROBLEM SOLVING - STEP 2: Does the patient require extra time to make decisions or solve problems, OR does s/he have slight dif ficulty reading, initiating, or self-correcting in unfamiliar situations? Yes, patient needs extra ti me. PROBLEM SOLVING - SCORE: 6-RAAD MEMORY: MEMORY - STEP 1: Does the patient need help from a person or device, or need extra time to remember frequently encount ered people, daily routines, and executing requests? No. MEMORY - STEP 2: Does the patient have slight difficulty recognizing frequently encountered people, daily routines, or executing requests without the need for repetition or using self-initiated or environmental cues to remember? Yes. MEMORY - SCORE: 6-RAAD
--- NOTE | 2018-08-14 15:03 | FAST ---
SHIFT START DATE/TIME: 08/14/2018 07:00 (PROPAGATOR) SHIFT END DATE/TIME: 08/14/2018 19:00 (PROPAGATOR) NAME JONY STEELE DATE OF : 1960 DATE OF ADMISSION: 08/13/2018 13:11 (PROPAGATOR) PHONE: AGE: 58 SSN# [id number] GENDER: Male ENCOUNTER PHYSICIAN: Dr. Juan Jones M.D. ADMISSION DIAGNOSIS: - Stroke 01 - Right Body (Left Brain) (.2) 22x4 millimeter acute infarction involving the right basal ganglia extending into the right liang ra diata and right periventricular white matter. EATING: EATING - STEP 1: Does the patient require the assistance of a person or device, or need extra time when eating? Yes. EATING - STEP 2: Does the patient require the assistance of a helper? Yes. EATING - STEP 3: Does the patient perform half or more of the eating tasks? Yes. EATING - STEP 4: Does the patient need only supervision, cuing, coaxing OR help to apply an orthosis OR help to cut fo od, open containers, pour liquids, or butter bread? Yes. EATING - SCORE: 5-SUP GROOMING: Comb/brush hair Wash, rinse, and dry face Wash, rinse, and dry hands GROOMING - STEP 1: Does the patient require the assistance of a person or device, or need extra time when grooming? Yes. GROOMING - STEP 2: Does the patient require the assistance of a helper? No. The patient only requires an assistive devic e, OR takes more than reasonable time to groom, OR there is a concern for safety as the patient groom s GROOMING - SCORE: 6-RAAD BATHING: Activity did not occur on this shift BATHING - SCORE: 0-UNK DRESSING - UPPER BODY: Activity did not occur on this shift ARTICLES SCORE Total number of steps: 0 DRESSING - UPPER BODY - SCORE: 0-UNK DRESSING - LOWER BODY: Activity did not occur on this shift ARTICLES SCORE Total number of steps: 0 DRESSING - LOWER BODY - SCORE: 0-UNK TOILETING: TOILETING - STEP 1: Does the patient require the assistance of a person or device, or need extra time with toileting? Yes . TOILETING - STEP 2: Does the patient require the assistance of a helper? Yes. TOILETING - STEP 3: How much assistance does the patient require from the helper? Only supervision TOILETING - SCORE: 5-SUP BLADDER MANAGEMENT: BLADDER MANAGEMENT - STEP 1: Does the patient control the bladder completely and intentionally without equipment or devices or med ications, and is always continent? No. BLADDER MANAGEMENT - STEP 2: Does the patient require the assistance of a helper? Yes. BLADDER MANAGEMENT - STEP 3: How much assistance does the patient require from the helper? Only set-up of equipment - such as plac ing it within reach of the patient or emptying a device - to maintain either satisfactory voiding pat tern or managing an external device, such as an absorbent pad, ileal device, or catheter BLADDER MANAGEMENT - SCORE: 5-SUP BLADDER MANAGEMENT - FREQUENCY OF ACCIDENTS: BLADDER MANAGEMENT(FA) - STEP 1: How many accidents has the patient had during the current shift? 0 BOWEL MANAGEMENT: Activity did not occur on this shift BOWEL MANAGEMENT - SCORE: 7-IND BOWEL MANAGEMENT - FREQUENCY OF ACCIDENTS: BOWEL MANAGEMENT(FA) - STEP 1: How many accidents has the patient had during the current shift? 0 TRANSFERS: BED, CHAIR, WHEELCHAIR: TRANSFERS: BED, CHAIR, WHEELCHAIR - STEP 1: Does the patient require assistance of a person or device, or need extra time with bed, chair, or whe elchair transfers? Yes. TRANSFERS: BED, CHAIR, WHEELCHAIR - STEP 2: Does the patient require the assistance of a helper? Yes. TRANSFERS: BED, CHAIR, WHEELCHAIR - STEP 3: How much assistance does the patient require from the helper? Only supervision TRANSFERS: BED, CHAIR, WHEELCHAIR - SCORE: 5-SUP TRANSFERS: TOILET: TRANSFERS: TOILET - STEP 1: Does the patient require the assistance of a person or device, or need extra time with toilet transfe rs? Yes. TRANSFERS: TOILET - STEP 2: Does the patient require the assistance of a helper? Yes. TRANSFERS: TOILET - STEP 3: How much assistance does the patient require from the helper? Only supervision, cuing, coaxing, OR he lp to set out transfer equipment or to lock brakes and/or lift foot rests TRANSFERS: TOILET - SCORE: 5-SUP TRANSFERS: SHOWER: Activity did not occur on this shift TRANSFERS: SHOWER - SCORE: 0-UNK TRANSFERS: TUB: Activity did not occur on this shift TRANSFERS: TUB - SCORE: 0-UNK LOCOMOTION: WALK: Activity did not occur on this shift LOCOMOTION: WALK - SCORE: 0-UNK LOCOMOTION: WHEELCHAIR: Activity did not occur on this shift LOCOMOTION: WHEELCHAIR - SCORE: 0-UNK COMPREHENSION: COMPREHENSION: TYPE: Both COMPREHENSION - STEP 1: Does the patient require help from a person or device, or need extra time to understand complex and a bstract ideas (such as current events, finances, discharge planning, medical issues, relationships, e tc)? No. COMPREHENSION - STEP 2: Does the patient need extra time, require an assistive device (such as glasses for visual comprehensi on or a hearing aid for auditory comprehension) or does s/he have mild difficulty understanding compl ex and abstract information? Yes. COMPREHENSION - SCORE: 6-RAAD EXPRESSION EXPRESSION: TYPE: Both EXPRESSION - STEP 1: Does the patient require help from a person or device, or need extra time expressing complex and abst ract ideas (such as current events, finances, discharge planning, medical issues, relationships, etc) ? No. EXPRESSION - STEP 2: Does the patient need extra time, require an assistive device (such as augmentive communication syste m or a communication board), OR does s/he have mild difficulty expressing complex and abstract ideas (including mild dysarthria or mild word-find problems)? Yes. EXPRESSION - SCORE: 6-RAAD SOCIAL INTERACTION: SOCIAL INTERACTION - STEP 1: Does the patient require a helper to interact with others in social and therapeutic situations? No. SOCIAL INTERACTION - STEP 2: Does the patient need extra time in social situations, OR does s/he interact with staff, other patien ts, and family members ONLY in structured environments, OR does s/he require medication for social in teraction? No. SOCIAL INTERACTION - SCORE: 7-IND PROBLEM SOLVING: PROBLEM SOLVING - STEP 1: Does the patient need help from a person or device, or need extra time to solve complex problems such as managing a checking account or confronting interpersonal problems? No. PROBLEM SOLVING - STEP 2: Does the patient require extra time to make decisions or solve problems, OR does s/he have slight dif ficulty reading, initiating, or self-correcting in unfamiliar situations? Yes, patient needs extra ti me. PROBLEM SOLVING - SCORE: 6-RAAD MEMORY: MEMORY - STEP 1: Does the patient need help from a person or device, or need extra time to remember frequently encount ered people, daily routines, and executing requests? No. MEMORY - STEP 2: Does the patient have slight difficulty recognizing frequently encountered people, daily routines, or executing requests without the need for repetition or using self-initiated or environmental cues to remember? Yes. MEMORY - SCORE: 6-RAAD SIGNATURE PANEL: The following modified sections: Eating - Score, Grooming - Score, Bathing - Score, Dressing - Upper Body - Score, Dressing - Lower Body - Score, Toileting - Score, Bladder Management - Score, Bowel Man agement - Score, Transfers: Bed, Chair, Wheelchair - Score, Transfers: Toilet - Score, Transfers: Aiyana wer - Score, Transfers: Tub - Score, Locomotion: Walk - Score, Locomotion: Wheelchair - Score, Compre hension - Score, Expression - Score, Social Interaction - Score, Problem Solving - Score, Memory - Sc ore were [electronically] signed by Awais PedrozaNAnitha on Sat Aug 14 2018 15:02:12 GMT-0600 ([facility] Standard Time)
--- NOTE | 2018-08-14 17:47 | R.PN ---
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 Pt denied any Shortness of Breath. Ambulated 500' with standby assistance using a rolling walker. VITAL SIGNS Temperature: 98 F SBP/DBP: 115/74 Pulse: 92 Resp: 16 MEDICATION ALLERGIES: No Known Drug Allergies (NKDA) ENVIRONMENTAL ALLERGIES: - Substance Allergies None Known - Other Allergies None Known NURSING: - Shower allowing shower - Bladder care per protocol - Skin care per protocol PRECAUTIONS: - Weight Bearing Precaution WBAT right LE ACTIVITIES OOB only with supervision THERAPIES: - Occupational Therapy Evaluate and Treat. Cognitive Retraining. Visual Perceptual Training. - Speech Therapy Memory Strategies. Expressive Language Skills. Speech Intelligibility Training. Cognitive Training. R eceptive Language Skills. - Physical Therapy Evaluate and Treat. PHYSICAL EXAM - Gen Alert and awake Lying in bed No apparent distress Oriented to: person, time, and place - Skin No breakdown No abnormalities - Eyes No abnormalities - ENMT No abnormalities - Neck No abnormalities - CVS RRR - Chest No abnormalities - Resp Clear to auscultation - Abd +bowel sounds - GI nondistended Deferred - No abnormalities - Ext no edema - MSK 4+/5 weakness in right upper and lower extremities - Neuro 4/5 strength right upper and lower extremities. - Psych No abnormalities ASSESSMENT: Pt. is a 58 yo Right-handed black male.On 08/05/2018 Pt. presented to [facility] with sudden onset of right-side weakness.On 08/05/2018 he was admitted to [facility] with diagnosis 22x4 millimeter acute infarction involving the right basal ganglia extending i nto the right liang radiata and right periventricular white matter.His impairment category is Stroke 01 - Right Body (Left Brain) (01.2).Pre-morbidly, Pt. was independent/mod-I in Self-Care, Sphincter Control, Transfers Control, Communication, Social Cognition, and Locomotion; and he had good Sphinct er Control.Currently, he has deficits of Transfers Control, Endurance, Balance, Safety Awareness, Kristen f-Care, and Locomotion.Pt. is now referred to [facility] for acute in-patient rehabilitation in order to maximize patient's functional independence in activities of daily living, strength, ROM, and mobility.- Rehab Goal Patient has realistic goal of being discharged at assistance level 6-Marjorie to reside at Home with Fam kate/Relatives. MDM/PLAN: - Physical Therapy Gait dysfunction - to improve, our physical therapists will perform initial evaluation of pt's statu s upon admission and devise an individualized program for Gait Training, and Wheel Chair mobility Inability to transfer - to improve, our physical therapists will perform initial evaluation of pt's status upon admission and devise an individualized program for Bed mobility Need for home safety evaluation - to improve, our physical therapists will perform initial evaluatio n of pt's status upon admission and devise an individualized program for Home Evaluation Need in caregiver upon discharge - to improve, our physical therapists will perform initial evaluati on of pt's status upon admission and devise an individualized program for Caregiver Training New precaution - to improve, our physical therapists will perform initial evaluation of pt's status upon admission and devise an individualized program for Patient precaution education Poor balance - to improve, our physical therapists will perform initial evaluation of pt's status up on admission and devise an individualized program for Balance Training Poor endurance - to improve, our physical therapists will perform initial evaluation of pt's status upon admission and devise an individualized program for Endurance Training Weakness - to improve, our physical therapists will perform initial evaluation of pt's status upon a dmission and devise an individualized program for Aquatic Therapy, Neuromuscular Reeducation, and Str engthening Achieving independence - to improve, our physical therapists will perform initial evaluation of pt's status upon admission and devise an individualized program for Community Reintegration Activities - Occupational Therapy ADL deficits - to improve, our occupation therapists will perform initial evaluation of pt's status upon admission and devise an individualized program for Bathing, Bed mobility, Community Reintegratio n, Cooking, Dressing, Eating, Fine Motor Skills, Grooming, Homemaking, Kitchen Mobility, Laundry, Pat ient Education, Safety Awareness, Splinting - Positioning, Transfers(Toilet, Tub, Shower), and Wheel Chair Management Need for rn managed care - to improve, our occupation therapists will perform initial evaluation of pt's status upon admission and devise an individualized program for Caregiver Training Weakness - to improve, our occupation therapists will perform initial evaluation of pt's status upon admission and devise an individualized program for Aquatic Therapy, Balance, Endurance, UE ROM, and UE strengthening - Diet Type Continue Regular - Diet - Liquid Texture Continue Regular - Tube Feed Continue N/A - Bladder care per protocol - Weight Bearing Precaution WBAT right LE - Skin care per protocol - Diet - Solid Texture Continue Regular - Shower allowing shower for Dementia, TBI, Stroke, or others FUNCTIONAL STATUS: UPDATED AT WEEKLY TEAM CONFERENCE - Bladder Same accident frequency: 7-Ind - No accidents in the past 7 days - Bowel Same accident frequency: 7-Ind - No accidents in the past 7 days - Walking Same score based on distance walked: 3(>=150ft) FUNCTIONAL STATUS: - Self-Care A. Eating Ind B. Grooming sup C. Bathing Brody D. Dressing - Upper sup E. Dressing - Lower Brody F. Toileting Brody - Sphincter Control G: Bladder control Ind H: Bowel control Ind - Transfers Control I. Bed/Chair/Wheelchair Brody J. Toilet Brody K. Tub/Shower Brody - Locomotion L. Walk/Wheelchair (B) CGA-to-Brody M. Stairs ADNO - Communication N. Comprehension (B) Ind O. Expression (B) Ind - Social Cognition P. Social Interaction Marjorie Q. Problem Solving Ind R. Memory Ind - Endurance Fair - Balance Poor - Safety Awareness Fair CURRENT FUNC. DEFICITS: Transfers Control, Endurance, Balance, Safety Awareness, Self-Care, and Locomotion SIGNATURE PANEL: (DIGITAL MARKETING ASSISTANT)
[2018-08-14] MEDS: ATORVASTATIN 80 MG TAB PO SCH (20:19)
[2018-08-15] MEDS: FOLIC ACID 1 MG TABLET PO SCH (07:59)
[2018-08-15] MEDS: THIAMINE HCL 100 MG TABLET PO SCH (07:59)
[2018-08-15] MEDS: APIXABAN 2.5 MG TABLET PO SCH ×2 (07:59→19:22)
[2018-08-15] MEDS: MULTIVITAMIN TAB PO SCH (07:59)
[2018-08-15] MEDS ORDERED: hydroCHLOROthiazide 12.5 MG CAP PO SCH (08:00)
[2018-08-15] MEDS ORDERED: LISINOPRIL 10 MG TAB PO SCH (08:00)
--- NOTE | 2018-08-15 13:39 | FAST ---
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 Juan Jones M.D. ADMISSION DIAGNOSIS: - Stroke 01 - Right Body (Left Brain) (.2) 22x4 millimeter acute infarction involving the right basal ganglia extending into the right liang ra diata and right periventricular white matter. EATING: EATING - STEP 1: Does the patient require the assistance of a person or device, or need extra time when eating? Yes. EATING - STEP 2: Does the patient require the assistance of a helper? No, patient only requires an assistive device, O R s/he takes more than reasonable time to eat, OR there is a safety concern, OR s/he requires modifie d food consistency EATING - SCORE: 6-RAAD GROOMING: Comb/brush hair Oral care Patient shaved Wash, rinse, and dry face Wash, rinse, and dry hands GROOMING - STEP 1: Does the patient require the assistance of a person or device, or need extra time when grooming? Yes. GROOMING - STEP 2: Does the patient require the assistance of a helper? No. The patient only requires an assistive devic e, OR takes more than reasonable time to groom, OR there is a concern for safety as the patient groom s GROOMING - SCORE: 6-RAAD BATHING: Abdomen Buttocks Chest Left arm Left lower leg and foot Left upper leg Right arm Right lower leg and foot Right upper leg BATHING - STEP 1: Does the patient require the assistance of a person or device, or need extra time when bathing? Yes. BATHING - STEP 2: Does the patient require the assistance of a helper? No. The patient only requires an assistive devic e such as a bath milana, OR the patient takes more than reasonable time to bathe, OR there is a concern for safety such as regulating water temperature as the patient bathes. BATHING - SCORE: 6-RAAD DRESSING - UPPER BODY: Button down shirt or blouse - NOT tucked in (four steps) T-shirt/pullover shirt (four steps) ARTICLES SCORE Total number of steps: 8 DRESSING - UPPER BODY - STEP 1: Does the patient require help from a person or device, or need extra time when dressing above the bianca st? Yes. DRESSING - UPPER BODY - STEP 2: Does the patient require the assistance of a helper? No. Patient only requires an assistive device, s uch as a button hook, velcro, or cigar packer and picker. OR s/he takes more than reasonable time as s/he dresses the upper body. OR there is a concern for safety when s/he dresses the upper body DRESSING - UPPER BODY - SCORE: 6-RAAD DRESSING - LOWER BODY: Elastic waist pants (three steps) Sock - Left foot (one step) Sock - Right foot (one step) Tied or buckled shoe - Left foot (two steps) Tied or buckled shoe - Right foot (two steps) Underwear (three steps) ARTICLES SCORE Total number of steps: 12 DRESSING - LOWER BODY - STEP 1: Does the patient require help from a person or device, or need extra time when dressing below the bianca st? Yes. DRESSING - LOWER BODY - STEP 2: Does the patient require the assistance of a helper? No. Patient requires an assistive device such as a cigar packer and picker. OR s/he takes more than reasonable time as s/he dresses the lower body, OR there is a con cern for safety when s/he dresses the lower body DRESSING - LOWER BODY - SCORE: 6-RAAD TOILETING: TOILETING - STEP 1: Does the patient require the assistance of a person or device, or need extra time with toileting? Yes . TOILETING - STEP 2: Does the patient require the assistance of a helper? Yes. TOILETING - STEP 3: How much assistance does the patient require from the helper? Only supervision TOILETING - SCORE: 5-SUP BLADDER MANAGEMENT: BLADDER MANAGEMENT - STEP 1: Does the patient control the bladder completely and intentionally without equipment or devices or med ications, and is always continent? No. BLADDER MANAGEMENT - STEP 2: Does the patient require the assistance of a helper? Yes. BLADDER MANAGEMENT - STEP 3: How much assistance does the patient require from the helper? Only set-up of equipment - such as plac ing it within reach of the patient or emptying a device - to maintain either satisfactory voiding pat tern or managing an external device, such as an absorbent pad, ileal device, or catheter BLADDER MANAGEMENT - SCORE: 5-SUP BLADDER MANAGEMENT - FREQUENCY OF ACCIDENTS: BLADDER MANAGEMENT(FA) - STEP 1: How many accidents has the patient had during the current shift? 0 BOWEL MANAGEMENT: Activity did not occur on this shift BOWEL MANAGEMENT - SCORE: 7-IND BOWEL MANAGEMENT - FREQUENCY OF ACCIDENTS: BOWEL MANAGEMENT(FA) - STEP 1: How many accidents has the patient had during the current shift? 0 TRANSFERS: BED, CHAIR, WHEELCHAIR: TRANSFERS: BED, CHAIR, WHEELCHAIR - STEP 1: Does the patient require assistance of a person or device, or need extra time with bed, chair, or whe elchair transfers? Yes. TRANSFERS: BED, CHAIR, WHEELCHAIR - STEP 2: Does the patient require the assistance of a helper? No. Patient only requires an assistive device fo r bed, chair, wheelchair transfers such as a sliding board, grab bar, or brace, OR s/he takes more th an reasonable time, OR there is a safety concern when s/he performs the transfers TRANSFERS: BED, CHAIR, WHEELCHAIR - SCORE: 6-RAAD TRANSFERS: TOILET: TRANSFERS: TOILET - STEP 1: Does the patient require the assistance of a person or device, or need extra time with toilet transfe rs? Yes. TRANSFERS: TOILET - STEP 2: Does the patient require the assistance of a helper? No. Patient only requires an assistive device russ ch as a grab bar or special seat, OR s/he takes more than reasonable time to perform toilet transfers , OR there is a safety concern when s/he performs toilet transfers. TRANSFERS: TOILET - SCORE: 6-RAAD TRANSFERS: SHOWER: TRANSFERS: SHOWER - STEP 1: Does the patient require the assistance of a person or device, or need extra time with shower transfe rs? Yes. TRANSFERS: SHOWER - STEP 2: Does the patient require the assistance of a helper? No. The patient only uses an assistive device, t akes more than reasonable time, OR there is a concern for safety when s/he performs transfers. TRANSFERS: SHOWER - SCORE: 6-RAAD TRANSFERS: TUB: Activity did not occur on this shift TRANSFERS: TUB - SCORE: 0-UNK LOCOMOTION: WALK: Activity did not occur on this shift LOCOMOTION: WALK - SCORE: 0-UNK LOCOMOTION: WHEELCHAIR: Activity did not occur on this shift LOCOMOTION: WHEELCHAIR - SCORE: 0-UNK COMPREHENSION: COMPREHENSION: TYPE: Both COMPREHENSION - STEP 1: Does the patient require help from a person or device, or need extra time to understand complex and a bstract ideas (such as current events, finances, discharge planning, medical issues, relationships, e tc)? No. COMPREHENSION - STEP 2: Does the patient need extra time, require an assistive device (such as glasses for visual comprehensi on or a hearing aid for auditory comprehension) or does s/he have mild difficulty understanding compl ex and abstract information? Yes. COMPREHENSION - SCORE: 6-RAAD EXPRESSION EXPRESSION: TYPE: Both EXPRESSION - STEP 1: Does the patient require help from a person or device, or need extra time expressing complex and abst ract ideas (such as current events, finances, discharge planning, medical issues, relationships, etc) ? No. EXPRESSION - STEP 2: Does the patient need extra time, require an assistive device (such as augmentive communication syste m or a communication board), OR does s/he have mild difficulty expressing complex and abstract ideas (including mild dysarthria or mild word-find problems)? Yes. EXPRESSION - SCORE: 6-RAAD SOCIAL INTERACTION: SOCIAL INTERACTION - STEP 1: Does the patient require a helper to interact with others in social and therapeutic situations? No. SOCIAL INTERACTION - STEP 2: Does the patient need extra time in social situations, OR does s/he interact with staff, other patien ts, and family members ONLY in structured environments, OR does s/he require medication for social in teraction? No. SOCIAL INTERACTION - SCORE: 7-IND PROBLEM SOLVING: PROBLEM SOLVING - STEP 1: Does the patient need help from a person or device, or need extra time to solve complex problems such as managing a checking account or confronting interpersonal problems? No. PROBLEM SOLVING - STEP 2: Does the patient require extra time to make decisions or solve problems, OR does s/he have slight dif ficulty reading, initiating, or self-correcting in unfamiliar situations? Yes, patient needs extra ti me. PROBLEM SOLVING - SCORE: 6-RAAD MEMORY: MEMORY - STEP 1: Does the patient need help from a person or device, or need extra time to remember frequently encount ered people, daily routines, and executing requests? No. MEMORY - STEP 2: Does the patient have slight difficulty recognizing frequently encountered people, daily routines, or executing requests without the need for repetition or using self-initiated or environmental cues to remember? Yes. MEMORY - SCORE: 6-RAAD SIGNATURE PANEL: The following modified sections: Eating - Score, Grooming - Score, Bathing - Score, Dressing - Upper Body - Score, Dressing - Lower Body - Score, Toileting - Score, Bladder Management - Score, Bowel Man agement - Score, Transfers: Bed, Chair, Wheelchair - Score, Transfers: Toilet - Score, Transfers: Aiyana wer - Score, Transfers: Tub - Score, Locomotion: Walk - Score, Locomotion: Wheelchair - Score, Compre hension - Score, Expression - Score, Social Interaction - Score, Problem Solving - Score, Memory - Sc ore were [electronically] signed by Anna Winston C.N.A. on ThuAug 15 2018 13:38:44 GMT-0600 ([facility] Standard Time)
[2018-08-15] MEDS: ATORVASTATIN 80 MG TAB PO SCH (20:08)
--- NOTE | 2018-08-16 01:21 | FAST ---
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 Juan Jones M.D. ADMISSION DIAGNOSIS: - Stroke 01 - Right Body (Left Brain) (.2) 22x4 millimeter acute infarction involving the right basal ganglia extending into the right liang ra diata and right periventricular white matter. EATING: Activity did not occur on this shift EATING - SCORE: 0-UNK GROOMING: Wash, rinse, and dry hands GROOMING - STEP 1: Does the patient require the assistance of a person or device, or need extra time when grooming? Yes. GROOMING - STEP 2: Does the patient require the assistance of a helper? No. The patient only requires an assistive devic e, OR takes more than reasonable time to groom, OR there is a concern for safety as the patient groom s GROOMING - SCORE: 6-RAAD BATHING: Activity did not occur on this shift BATHING - SCORE: 0-UNK DRESSING - UPPER BODY: Patient is not dressing in public clothing ARTICLES SCORE Total number of steps: 0 DRESSING - UPPER BODY - SCORE: 0-UNK DRESSING - LOWER BODY: Patient is not dressing in public clothing ARTICLES SCORE Total number of steps: 0 DRESSING - LOWER BODY - SCORE: 0-UNK TOILETING: TOILETING - STEP 1: Does the patient require the assistance of a person or device, or need extra time with toileting? Yes . TOILETING - STEP 2: Does the patient require the assistance of a helper? No. TOILETING - SCORE: 6-RAAD BLADDER MANAGEMENT: BLADDER MANAGEMENT - STEP 1: Does the patient control the bladder completely and intentionally without equipment or devices or med ications, and is always continent? Yes. BLADDER MANAGEMENT - SCORE: 7-IND BOWEL MANAGEMENT: BOWEL MANAGEMENT - STEP 1: Does the patient control bowels completely and intentionally without equipment devices or medications AND is always continent? No. BOWEL MANAGEMENT - STEP 2: Does the patient require the assistance of a helper? No, patient requires medication for control such as stool softeners, suppositories, laxatives, enemas, or OTC medications BOWEL MANAGEMENT - SCORE: 6-RAAD TRANSFERS: BED, CHAIR, WHEELCHAIR: TRANSFERS: BED, CHAIR, WHEELCHAIR - STEP 1: Does the patient require assistance of a person or device, or need extra time with bed, chair, or whe elchair transfers? Yes. TRANSFERS: BED, CHAIR, WHEELCHAIR - STEP 2: Does the patient require the assistance of a helper? No. Patient only requires an assistive device fo r bed, chair, wheelchair transfers such as a sliding board, grab bar, or brace, OR s/he takes more th an reasonable time, OR there is a safety concern when s/he performs the transfers TRANSFERS: BED, CHAIR, WHEELCHAIR - SCORE: 6-RAAD TRANSFERS: TOILET: TRANSFERS: TOILET - STEP 1: Does the patient require the assistance of a person or device, or need extra time with toilet transfe rs? Yes. TRANSFERS: TOILET - STEP 2: Does the patient require the assistance of a helper? No. Patient only requires an assistive device russ ch as a grab bar or special seat, OR s/he takes more than reasonable time to perform toilet transfers , OR there is a safety concern when s/he performs toilet transfers. TRANSFERS: TOILET - SCORE: 6-RAAD TRANSFERS: SHOWER: Activity did not occur on this shift TRANSFERS: SHOWER - SCORE: 0-UNK TRANSFERS: TUB: Activity did not occur on this shift TRANSFERS: TUB - SCORE: 0-UNK LOCOMOTION: WALK: Activity did not occur on this shift LOCOMOTION: WALK - SCORE: 0-UNK LOCOMOTION: WHEELCHAIR: Activity did not occur on this shift LOCOMOTION: WHEELCHAIR - SCORE: 0-UNK COMPREHENSION: COMPREHENSION: TYPE: Both COMPREHENSION - STEP 1: Does the patient require help from a person or device, or need extra time to understand complex and a bstract ideas (such as current events, finances, discharge planning, medical issues, relationships, e tc)? No. COMPREHENSION - STEP 2: Does the patient need extra time, require an assistive device (such as glasses for visual comprehensi on or a hearing aid for auditory comprehension) or does s/he have mild difficulty understanding compl ex and abstract information? Yes. COMPREHENSION - SCORE: 6-RAAD EXPRESSION EXPRESSION: TYPE: Both EXPRESSION - STEP 1: Does the patient require help from a person or device, or need extra time expressing complex and abst ract ideas (such as current events, finances, discharge planning, medical issues, relationships, etc) ? No. EXPRESSION - STEP 2: Does the patient need extra time, require an assistive device (such as augmentive communication syste m or a communication board), OR does s/he have mild difficulty expressing complex and abstract ideas (including mild dysarthria or mild word-find problems)? No. EXPRESSION - SCORE: 7-IND SOCIAL INTERACTION: SOCIAL INTERACTION - STEP 1: Does the patient require a helper to interact with others in social and therapeutic situations? No. SOCIAL INTERACTION - STEP 2: Does the patient need extra time in social situations, OR does s/he interact with staff, other patien ts, and family members ONLY in structured environments, OR does s/he require medication for social in teraction? No. SOCIAL INTERACTION - SCORE: 7-IND PROBLEM SOLVING: PROBLEM SOLVING - STEP 1: Does the patient need help from a person or device, or need extra time to solve complex problems such as managing a checking account or confronting interpersonal problems? No. PROBLEM SOLVING - STEP 2: Does the patient require extra time to make decisions or solve problems, OR does s/he have slight dif ficulty reading, initiating, or self-correcting in unfamiliar situations? Yes, patient needs extra ti me. PROBLEM SOLVING - SCORE: 6-RAAD MEMORY: MEMORY - STEP 1: Does the patient need help from a person or device, or need extra time to remember frequently encount ered people, daily routines, and executing requests? No. MEMORY - STEP 2: Does the patient have slight difficulty recognizing frequently encountered people, daily routines, or executing requests without the need for repetition or using self-initiated or environmental cues to remember? No. MEMORY - SCORE: 7-IND SIGNATURE PANEL: The following modified sections: Eating - Score, Grooming - Score, Dressing - Upper Body - Score, Carlos ssing - Lower Body - Score, Toileting - Score, Bladder Management - Score, Bowel Management - Score, Transfers: Bed, Chair, Wheelchair - Score, Transfers: Toilet - Score, Transfers: Shower - Score, Silverio sfers: Tub - Score, Locomotion: Walk - Score, Locomotion: Wheelchair - Score, Comprehension - Score, Expression - Score, Social Interaction - Score, Problem Solving - Score, Memory - Score were [electro nically] signed by Frances Álvarez CNA on ThuAug 16 2018 01:20:40 GMT-0600 (Central Standard Time)
[2018-08-16] MEDS: APIXABAN 2.5 MG TABLET PO SCH ×2 (08:18→20:00)
[2018-08-16] MEDS: FOLIC ACID 1 MG TABLET PO SCH (08:18)
[2018-08-16] MEDS: AMLODIPINE 2.5 MG TAB PO SCH (08:18)
[2018-08-16] MEDS: THIAMINE HCL 100 MG TABLET PO SCH (08:18)
[2018-08-16] MEDS: MULTIVITAMIN TAB PO SCH (08:18)
--- NOTE | 2018-08-16 14:51 | FAST ---
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 Juan Jones M.D. ADMISSION DIAGNOSIS: - Stroke 01 - Right Body (Left Brain) (.2) 22x4 millimeter acute infarction involving the right basal ganglia extending into the right liang ra diata and right periventricular white matter. EATING: EATING - STEP 1: Does the patient require the assistance of a person or device, or need extra time when eating? Yes. EATING - STEP 2: Does the patient require the assistance of a helper? Yes. EATING - STEP 3: Does the patient perform half or more of the eating tasks? Yes. EATING - STEP 4: Does the patient need only supervision, cuing, coaxing OR help to apply an orthosis OR help to cut fo od, open containers, pour liquids, or butter bread? Yes. EATING - SCORE: 5-SUP GROOMING: GROOMING - STEP 1: Does the patient require the assistance of a person or device, or need extra time when grooming? No. GROOMING - SCORE: 7-IND BATHING: Activity did not occur on this shift BATHING - SCORE: 0-UNK DRESSING - UPPER BODY: Activity did not occur on this shift ARTICLES SCORE Total number of steps: 0 DRESSING - UPPER BODY - SCORE: 0-UNK DRESSING - LOWER BODY: Activity did not occur on this shift ARTICLES SCORE Total number of steps: 0 DRESSING - LOWER BODY - SCORE: 0-UNK TOILETING: TOILETING - STEP 1: Does the patient require the assistance of a person or device, or need extra time with toileting? Yes . TOILETING - STEP 2: Does the patient require the assistance of a helper? Yes. TOILETING - STEP 3: How much assistance does the patient require from the helper? Only supervision TOILETING - SCORE: 5-SUP BLADDER MANAGEMENT: BLADDER MANAGEMENT - STEP 1: Does the patient control the bladder completely and intentionally without equipment or devices or med ications, and is always continent? Yes. BLADDER MANAGEMENT - SCORE: 7-IND BOWEL MANAGEMENT: Activity did not occur on this shift BOWEL MANAGEMENT - SCORE: 7-IND TRANSFERS: BED, CHAIR, WHEELCHAIR: TRANSFERS: BED, CHAIR, WHEELCHAIR - STEP 1: Does the patient require assistance of a person or device, or need extra time with bed, chair, or whe elchair transfers? Yes. TRANSFERS: BED, CHAIR, WHEELCHAIR - STEP 2: Does the patient require the assistance of a helper? No. Patient only requires an assistive device fo r bed, chair, wheelchair transfers such as a sliding board, grab bar, or brace, OR s/he takes more th an reasonable time, OR there is a safety concern when s/he performs the transfers TRANSFERS: BED, CHAIR, WHEELCHAIR - SCORE: 6-RAAD TRANSFERS: TOILET: TRANSFERS: TOILET - STEP 1: Does the patient require the assistance of a person or device, or need extra time with toilet transfe rs? Yes. TRANSFERS: TOILET - STEP 2: Does the patient require the assistance of a helper? No. Patient only requires an assistive device russ ch as a grab bar or special seat, OR s/he takes more than reasonable time to perform toilet transfers , OR there is a safety concern when s/he performs toilet transfers. TRANSFERS: TOILET - SCORE: 6-RAAD TRANSFERS: SHOWER: Activity did not occur on this shift TRANSFERS: SHOWER - SCORE: 0-UNK TRANSFERS: TUB: Activity did not occur on this shift TRANSFERS: TUB - SCORE: 0-UNK LOCOMOTION: WALK: Activity did not occur on this shift LOCOMOTION: WALK - SCORE: 0-UNK LOCOMOTION: WHEELCHAIR: Activity did not occur on this shift LOCOMOTION: WHEELCHAIR - SCORE: 0-UNK COMPREHENSION: COMPREHENSION: TYPE: Both COMPREHENSION - STEP 1: Does the patient require help from a person or device, or need extra time to understand complex and a bstract ideas (such as current events, finances, discharge planning, medical issues, relationships, e tc)? No. COMPREHENSION - STEP 2: Does the patient need extra time, require an assistive device (such as glasses for visual comprehensi on or a hearing aid for auditory comprehension) or does s/he have mild difficulty understanding compl ex and abstract information? Yes. COMPREHENSION - SCORE: 6-RAAD EXPRESSION EXPRESSION: TYPE: Both EXPRESSION - STEP 1: Does the patient require help from a person or device, or need extra time expressing complex and abst ract ideas (such as current events, finances, discharge planning, medical issues, relationships, etc) ? No. EXPRESSION - STEP 2: Does the patient need extra time, require an assistive device (such as augmentive communication syste m or a communication board), OR does s/he have mild difficulty expressing complex and abstract ideas (including mild dysarthria or mild word-find problems)? Yes. EXPRESSION - SCORE: 6-RAAD SOCIAL INTERACTION: SOCIAL INTERACTION - STEP 1: Does the patient require a helper to interact with others in social and therapeutic situations? No. SOCIAL INTERACTION - STEP 2: Does the patient need extra time in social situations, OR does s/he interact with staff, other patien ts, and family members ONLY in structured environments, OR does s/he require medication for social in teraction? No. SOCIAL INTERACTION - SCORE: 7-IND PROBLEM SOLVING: PROBLEM SOLVING - STEP 1: Does the patient need help from a person or device, or need extra time to solve complex problems such as managing a checking account or confronting interpersonal problems? No. PROBLEM SOLVING - STEP 2: Does the patient require extra time to make decisions or solve problems, OR does s/he have slight dif ficulty reading, initiating, or self-correcting in unfamiliar situations? Yes, patient needs extra ti me. PROBLEM SOLVING - SCORE: 6-RAAD MEMORY: MEMORY - STEP 1: Does the patient need help from a person or device, or need extra time to remember frequently encount ered people, daily routines, and executing requests? No. MEMORY - STEP 2: Does the patient have slight difficulty recognizing frequently encountered people, daily routines, or executing requests without the need for repetition or using self-initiated or environmental cues to remember? Yes. MEMORY - SCORE: 6-RAAD SIGNATURE PANEL: The following modified sections: Eating - Score, Grooming - Score, Bathing - Score, Dressing - Upper Body - Score, Dressing - Lower Body - Score, Toileting - Score, Bladder Management - Score, Bowel Man agement - Score, Transfers: Bed, Chair, Wheelchair - Score, Transfers: Toilet - Score, Transfers: Aiyana wer - Score, Transfers: Tub - Score, Locomotion: Walk - Score, Locomotion: Wheelchair - Score, Compre hension - Score, Expression - Score, Social Interaction - Score, Problem Solving - Score, Memory - Sc ore were [electronically] signed by Louis Walls on ThuAug 16 2018 14:51:04 GMT-0600 (Central Standard Time)
--- NOTE | 2018-08-16 15:55 | FAST ---
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 Juan Jones M.D. ADMISSION DIAGNOSIS: - Stroke 01 - Right Body (Left Brain) (01.2) 22x4 millimeter acute infarction involving the right basal ganglia extending into the right liang ra diata and right periventricular white matter. EATING: Activity did not occur on this shift EATING - SCORE: 0-UNK GROOMING: Activity did not occur on this shift GROOMING - SCORE: 0-UNK BATHING: Activity did not occur on this shift BATHING - SCORE: 0-UNK DRESSING - UPPER BODY: Activity did not occur on this shift Patient is not dressing in public clothing ARTICLES SCORE Total number of steps: 0 DRESSING - UPPER BODY - SCORE: 0-UNK DRESSING - LOWER BODY: Activity did not occur on this shift Patient is not dressing in public clothing ARTICLES SCORE Total number of steps: 0 DRESSING - LOWER BODY - SCORE: 0-UNK TOILETING: Activity did not occur on this shift TOILETING - SCORE: 0-UNK BLADDER MANAGEMENT: Activity did not occur on this shift BLADDER MANAGEMENT - SCORE: 7-IND BOWEL MANAGEMENT: Activity did not occur on this shift BOWEL MANAGEMENT - SCORE: 7-IND TRANSFERS: BED, CHAIR, WHEELCHAIR: TRANSFERS: BED, CHAIR, WHEELCHAIR - STEP 1: Does the patient require assistance of a person or device, or need extra time with bed, chair, or whe elchair transfers? Yes. TRANSFERS: BED, CHAIR, WHEELCHAIR - STEP 2: Does the patient require the assistance of a helper? Yes. TRANSFERS: BED, CHAIR, WHEELCHAIR - STEP 3: How much assistance does the patient require from the helper? Only supervision TRANSFERS: BED, CHAIR, WHEELCHAIR - SCORE: 5-SUP TRANSFERS: TOILET: Activity did not occur on this shift TRANSFERS: TOILET - SCORE: 0-UNK TRANSFERS: SHOWER: Activity did not occur on this shift TRANSFERS: SHOWER - SCORE: 0-UNK TRANSFERS: TUB: Activity did not occur on this shift TRANSFERS: TUB - SCORE: 0-UNK LOCOMOTION: WALK: LOCOMOTION: WALK - STEP 1: Does the patient need help from a person or device, or need extra time to walk 150 feet? Yes. LOCOMOTION: WALK - STEP 2: How much assistance does the patient require to walk a minimum of 150 feet? Only supervision, cuing, or coaxing LOCOMOTION: WALK - SCORE: 5-SUP LOCOMOTION: WHEELCHAIR: Activity did not occur on this shift LOCOMOTION: WHEELCHAIR - SCORE: 0-UNK LOCOMOTION: STAIRS: LOCOMOTION: STAIRS - STEP 1: Does the patient need help to go up and down 12 to 14 stairs? Yes. LOCOMOTION: STAIRS - STEP 2: How much assistance does the patient need from the helper to go a minimum of 12 to 14 stairs? Only russ pervision, cuing, or coaxing LOCOMOTION: STAIRS - SCORE: 5-SUP COMPREHENSION: COMPREHENSION - SCORE: 0-UNK EXPRESSION EXPRESSION - SCORE: 0-UNK SOCIAL INTERACTION: SOCIAL INTERACTION - SCORE: 0-UNK PROBLEM SOLVING: PROBLEM SOLVING - SCORE: 0-UNK MEMORY: MEMORY - SCORE: 0-UNK SIGNATURE PANEL: The following modified sections: Transfers: Bed, Chair, Wheelchair - Score, Transfers: Toilet - Score , Locomotion: Walk - Score, Locomotion: Wheelchair - Score, Locomotion: Stairs - Score were [electron ically] signed by Navin Albert PT on ThuAug 16 2018 15:54:11 GMT-0600 (Central Standard Time)
--- NOTE | 2018-08-16 17:46 | R.PN ---
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 Pt denied any Shortness of Breath. Ambulated 500' with standby assistance using a single prong cane. VITAL SIGNS Temperature: 98 F SBP/DBP: 126/77 Pulse: 91 Resp: 16 MEDICATION ALLERGIES: No Known Drug Allergies (NKDA) ENVIRONMENTAL ALLERGIES: - Substance Allergies None Known - Other Allergies None Known NURSING: - Shower allowing shower - Bladder care per protocol - Skin care per protocol PRECAUTIONS: - Weight Bearing Precaution WBAT right LE ACTIVITIES OOB only with supervision THERAPIES: - Occupational Therapy Evaluate and Treat. Cognitive Retraining. Visual Perceptual Training. - Speech Therapy Memory Strategies. Expressive Language Skills. Speech Intelligibility Training. Cognitive Training. R eceptive Language Skills. - Physical Therapy Evaluate and Treat. PHYSICAL EXAM - Gen Alert and awake Lying in bed No apparent distress Oriented to: person, time, and place - Skin No breakdown No abnormalities - Eyes No abnormalities - ENMT No abnormalities - Neck No abnormalities - CVS RRR - Chest No abnormalities - Resp Clear to auscultation - Abd +bowel sounds - GI nondistended Deferred - No abnormalities - Ext no edema - MSK 4+/5 weakness in right upper and lower extremities - Neuro 4/5 strength right upper and lower extremities. - Psych No abnormalities ASSESSMENT: Pt. is a 58 yo Right-handed black male.On 08/05/2018 Pt. presented to [facility] with sudden onset of right-side weakness.On 08/05/2018 he was admitted to [facility] with diagnosis 22x4 millimeter acute infarction involving the right basal ganglia extending i nto the right liang radiata and right periventricular white matter.His impairment category is Stroke 01 - Right Body (Left Brain) (01.2).Pre-morbidly, Pt. was independent/mod-I in Self-Care, Sphincter Control, Transfers Control, Communication, Social Cognition, and Locomotion; and he had good Sphinct er Control.Currently, he has deficits of Transfers Control, Endurance, Balance, Safety Awareness, Kristen f-Care, and Locomotion.Pt. is now referred to [facility] for acute in-patient rehabilitation in order to maximize patient's functional independence in activities of daily living, strength, ROM, and mobility.- Rehab Goal Patient has realistic goal of being discharged at assistance level 6-Marjorie to reside at Home with Fam kate/Relatives. MDM/PLAN: - Physical Therapy Gait dysfunction - to improve, our physical therapists will perform initial evaluation of pt's statu s upon admission and devise an individualized program for Gait Training, and Wheel Chair mobility Inability to transfer - to improve, our physical therapists will perform initial evaluation of pt's status upon admission and devise an individualized program for Bed mobility Need for home safety evaluation - to improve, our physical therapists will perform initial evaluatio n of pt's status upon admission and devise an individualized program for Home Evaluation Need in caregiver upon discharge - to improve, our physical therapists will perform initial evaluati on of pt's status upon admission and devise an individualized program for Caregiver Training New precaution - to improve, our physical therapists will perform initial evaluation of pt's status upon admission and devise an individualized program for Patient precaution education Poor balance - to improve, our physical therapists will perform initial evaluation of pt's status up on admission and devise an individualized program for Balance Training Poor endurance - to improve, our physical therapists will perform initial evaluation of pt's status upon admission and devise an individualized program for Endurance Training Weakness - to improve, our physical therapists will perform initial evaluation of pt's status upon a dmission and devise an individualized program for Aquatic Therapy, Neuromuscular Reeducation, and Str engthening Achieving independence - to improve, our physical therapists will perform initial evaluation of pt's status upon admission and devise an individualized program for Community Reintegration Activities - Occupational Therapy ADL deficits - to improve, our occupation therapists will perform initial evaluation of pt's status upon admission and devise an individualized program for Bathing, Bed mobility, Community Reintegratio n, Cooking, Dressing, Eating, Fine Motor Skills, Grooming, Homemaking, Kitchen Mobility, Laundry, Pat ient Education, Safety Awareness, Splinting - Positioning, Transfers(Toilet, Tub, Shower), and Wheel Chair Management Need for manager of care - to improve, our occupation therapists will perform initial evaluation of pt's status upon admission and devise an individualized program for Caregiver Training Weakness - to improve, our occupation therapists will perform initial evaluation of pt's status upon admission and devise an individualized program for Aquatic Therapy, Balance, Endurance, UE ROM, and UE strengthening - Diet Type Continue Regular - Diet - Liquid Texture Continue Regular - Tube Feed Continue N/A - Bladder care per protocol - Weight Bearing Precaution WBAT right LE - Skin care per protocol - Diet - Solid Texture Continue Regular - Shower allowing shower for Dementia, TBI, Stroke, or others FUNCTIONAL STATUS: UPDATED AT WEEKLY TEAM CONFERENCE - Bladder Same accident frequency: 7-Ind - No accidents in the past 7 days - Bowel Same accident frequency: 7-Ind - No accidents in the past 7 days - Walking Same score based on distance walked: 3(>=150ft) FUNCTIONAL STATUS: - Self-Care A. Eating Ind B. Grooming sup C. Bathing Brody D. Dressing - Upper sup E. Dressing - Lower Brody F. Toileting Brody - Sphincter Control G: Bladder control Ind H: Bowel control Ind - Transfers Control I. Bed/Chair/Wheelchair Brody J. Toilet Brody K. Tub/Shower Brody - Locomotion L. Walk/Wheelchair (B) CGA-to-Brody M. Stairs ADNO - Communication N. Comprehension (B) Ind O. Expression (B) Ind - Social Cognition P. Social Interaction Marjorie Q. Problem Solving Ind R. Memory Ind - Endurance Fair - Balance Poor - Safety Awareness Fair CURRENT FUNC. 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
[2018-08-16] MEDS: ATORVASTATIN 80 MG TAB PO SCH (20:00)
--- NOTE | 2018-08-17 02:20 | FAST ---
SHIFT START DATE/TIME: 08/16/2018 19:00 (PREDATORY HUNTER) SHIFT END DATE/TIME: 08/17/2018 07:00 (PREDATORY HUNTER) NAME JONY STEELE DATE OF : 1960 DATE OF ADMISSION: 08/13/2018 13:11 (PREDATORY HUNTER) PHONE: AGE: 58 SSN# [id number] GENDER: Male ENCOUNTER PHYSICIAN: Dr. Juan Jones M.D. ADMISSION DIAGNOSIS: - Stroke 01 - Right Body (Left Brain) (.2) 22x4 millimeter acute infarction involving the right basal ganglia extending into the right liang ra diata and right periventricular white matter. EATING: Activity did not occur on this shift EATING - SCORE: 0-UNK GROOMING: Activity did not occur on this shift GROOMING - SCORE: 0-UNK BATHING: Activity did not occur on this shift BATHING - SCORE: 0-UNK DRESSING - UPPER BODY: Activity did not occur on this shift ARTICLES SCORE Total number of steps: 0 DRESSING - UPPER BODY - SCORE: 0-UNK DRESSING - LOWER BODY: Activity did not occur on this shift ARTICLES SCORE Total number of steps: 0 DRESSING - LOWER BODY - SCORE: 0-UNK TOILETING: TOILETING - STEP 1: Does the patient require the assistance of a person or device, or need extra time with toileting? Yes . TOILETING - STEP 2: Does the patient require the assistance of a helper? Yes. TOILETING - STEP 3: How much assistance does the patient require from the helper? Only supervision TOILETING - SCORE: 5-SUP BLADDER MANAGEMENT: BLADDER MANAGEMENT - STEP 1: Does the patient control the bladder completely and intentionally without equipment or devices or med ications, and is always continent? No. BLADDER MANAGEMENT - STEP 2: Does the patient require the assistance of a helper? Yes. BLADDER MANAGEMENT - STEP 3: How much assistance does the patient require from the helper? Only supervision, stand-by, cuing, or c oaxing BLADDER MANAGEMENT - SCORE: 5-SUP BOWEL MANAGEMENT: Activity did not occur on this shift BOWEL MANAGEMENT - SCORE: 7-IND TRANSFERS: BED, CHAIR, WHEELCHAIR: TRANSFERS: BED, CHAIR, WHEELCHAIR - STEP 1: Does the patient require assistance of a person or device, or need extra time with bed, chair, or whe elchair transfers? Yes. TRANSFERS: BED, CHAIR, WHEELCHAIR - STEP 2: Does the patient require the assistance of a helper? Yes. TRANSFERS: BED, CHAIR, WHEELCHAIR - STEP 3: How much assistance does the patient require from the helper? Only supervision TRANSFERS: BED, CHAIR, WHEELCHAIR - SCORE: 5-SUP TRANSFERS: TOILET: TRANSFERS: TOILET - STEP 1: Does the patient require the assistance of a person or device, or need extra time with toilet transfe rs? Yes. TRANSFERS: TOILET - STEP 2: Does the patient require the assistance of a helper? Yes. TRANSFERS: TOILET - STEP 3: How much assistance does the patient require from the helper? Only supervision, cuing, coaxing, OR he lp to set out transfer equipment or to lock brakes and/or lift foot rests TRANSFERS: TOILET - SCORE: 5-SUP TRANSFERS: SHOWER: Activity did not occur on this shift TRANSFERS: SHOWER - SCORE: 0-UNK TRANSFERS: TUB: Activity did not occur on this shift TRANSFERS: TUB - SCORE: 0-UNK LOCOMOTION: WALK: Activity did not occur on this shift LOCOMOTION: WALK - SCORE: 0-UNK LOCOMOTION: WHEELCHAIR: Activity did not occur on this shift LOCOMOTION: WHEELCHAIR - SCORE: 0-UNK COMPREHENSION: COMPREHENSION: TYPE: Both COMPREHENSION - STEP 1: Does the patient require help from a person or device, or need extra time to understand complex and a bstract ideas (such as current events, finances, discharge planning, medical issues, relationships, e tc)? No. COMPREHENSION - STEP 2: Does the patient need extra time, require an assistive device (such as glasses for visual comprehensi on or a hearing aid for auditory comprehension) or does s/he have mild difficulty understanding compl ex and abstract information? Yes. COMPREHENSION - SCORE: 6-RAAD EXPRESSION EXPRESSION: TYPE: Both EXPRESSION - STEP 1: Does the patient require help from a person or device, or need extra time expressing complex and abst ract ideas (such as current events, finances, discharge planning, medical issues, relationships, etc) ? No. EXPRESSION - STEP 2: Does the patient need extra time, require an assistive device (such as augmentive communication syste m or a communication board), OR does s/he have mild difficulty expressing complex and abstract ideas (including mild dysarthria or mild word-find problems)? No. EXPRESSION - SCORE: 7-IND SOCIAL INTERACTION: SOCIAL INTERACTION - STEP 1: Does the patient require a helper to interact with others in social and therapeutic situations? No. SOCIAL INTERACTION - STEP 2: Does the patient need extra time in social situations, OR does s/he interact with staff, other patien ts, and family members ONLY in structured environments, OR does s/he require medication for social in teraction? No. SOCIAL INTERACTION - SCORE: 7-IND PROBLEM SOLVING: PROBLEM SOLVING - STEP 1: Does the patient need help from a person or device, or need extra time to solve complex problems such as managing a checking account or confronting interpersonal problems? No. PROBLEM SOLVING - STEP 2: Does the patient require extra time to make decisions or solve problems, OR does s/he have slight dif ficulty reading, initiating, or self-correcting in unfamiliar situations? No. PROBLEM SOLVING - SCORE: 7-IND MEMORY: MEMORY - STEP 1: Does the patient need help from a person or device, or need extra time to remember frequently encount ered people, daily routines, and executing requests? No. MEMORY - STEP 2: Does the patient have slight difficulty recognizing frequently encountered people, daily routines, or executing requests without the need for repetition or using self-initiated or environmental cues to remember? No. MEMORY - SCORE: 7-IND SIGNATURE PANEL: The following modified sections: Eating - Score, Grooming - Score, Bathing - Score, Dressing - Upper Body - Score, Dressing - Lower Body - Score, Toileting - Score, Bladder Management - Score, Bowel Man agement - Score, Transfers: Bed, Chair, Wheelchair - Score, Transfers: Toilet - Score, Transfers: Aiyana wer - Score, Transfers: Tub - Score, Locomotion: Walk - Score, Locomotion: Wheelchair - Score, Compre hension - Score, Expression - Score, Social Interaction - Score, Problem Solving - Score, Memory - Sc ore were [electronically] signed by Greer Christianson CNA on ThuAug 17 2018 02:19:46 T-0600 ([facility])
[2018-08-17] MEDS: APIXABAN 2.5 MG TABLET PO SCH ×2 (08:23→19:32)
[2018-08-17] MEDS: AMLODIPINE 2.5 MG TAB PO SCH (08:23)
[2018-08-17] MEDS: THIAMINE HCL 100 MG TABLET PO SCH (08:23)
[2018-08-17] MEDS: MULTIVITAMIN TAB PO SCH (08:23)
[2018-08-17] MEDS: FOLIC ACID 1 MG TABLET PO SCH (08:23)
--- NOTE | 2018-08-17 10:58 | FAST ---
ENCOUNTER DATE AND TIME: 08/17/2018 08:00 (MANAGER OF INFORMATION) NAME JONY STEELE DATE OF : 1960 DATE OF ADMISSION: 08/13/2018 13:11 (MANAGER OF INFORMATION) PHONE: AGE: 58 SSN# [id number] GENDER: Male ENCOUNTER PHYSICIAN: Dr. Juan Jones M.D. ADMISSION DIAGNOSIS: - Stroke 01 - Right Body (Left Brain) (01.2) 22x4 millimeter acute infarction involving the right basal ganglia extending into the right liang ra diata and right periventricular white matter. EATING: Activity did not occur on this shift EATING - SCORE: 0-UNK GROOMING: Activity did not occur on this shift GROOMING - SCORE: 0-UNK BATHING: Activity did not occur on this shift BATHING - SCORE: 0-UNK DRESSING - UPPER BODY: Activity did not occur on this shift Patient is not dressing in public clothing ARTICLES SCORE Total number of steps: 0 DRESSING - UPPER BODY - SCORE: 0-UNK DRESSING - LOWER BODY: Activity did not occur on this shift Patient is not dressing in public clothing ARTICLES SCORE Total number of steps: 0 DRESSING - LOWER BODY - SCORE: 0-UNK TOILETING: Activity did not occur on this shift TOILETING - SCORE: 0-UNK BLADDER MANAGEMENT: Activity did not occur on this shift BLADDER MANAGEMENT - SCORE: 7-IND BOWEL MANAGEMENT: Activity did not occur on this shift BOWEL MANAGEMENT - SCORE: 7-IND TRANSFERS: BED, CHAIR, WHEELCHAIR: TRANSFERS: BED, CHAIR, WHEELCHAIR - STEP 1: Does the patient require assistance of a person or device, or need extra time with bed, chair, or whe elchair transfers? Yes. TRANSFERS: BED, CHAIR, WHEELCHAIR - STEP 2: Does the patient require the assistance of a helper? No. Patient only requires an assistive device fo r bed, chair, wheelchair transfers such as a sliding board, grab bar, or brace, OR s/he takes more th an reasonable time, OR there is a safety concern when s/he performs the transfers TRANSFERS: BED, CHAIR, WHEELCHAIR - SCORE: 6-RAAD TRANSFERS: TOILET: Activity did not occur on this shift TRANSFERS: TOILET - SCORE: 0-UNK TRANSFERS: SHOWER: Activity did not occur on this shift TRANSFERS: SHOWER - SCORE: 0-UNK TRANSFERS: TUB: Activity did not occur on this shift TRANSFERS: TUB - SCORE: 0-UNK LOCOMOTION: WALK: LOCOMOTION: WALK - STEP 1: Does the patient need help from a person or device, or need extra time to walk 150 feet? No. LOCOMOTION: WALK - STEP 2: Does the patient need an assistive device (such as an orthosis, prosthesis, crutches, or walker) to g o 150 feet, OR does s/he take more than reasonable time, OR is there a concern for safety? Yes, the p atient needs an assistive device LOCOMOTION: WALK - SCORE: 6-RAAD LOCOMOTION: WHEELCHAIR: Activity did not occur on this shift LOCOMOTION: WHEELCHAIR - SCORE: 0-UNK LOCOMOTION: STAIRS: Activity did not occur on this shift LOCOMOTION: STAIRS - SCORE: 0-UNK COMPREHENSION: COMPREHENSION - SCORE: 0-UNK EXPRESSION EXPRESSION - SCORE: 0-UNK SOCIAL INTERACTION: SOCIAL INTERACTION - SCORE: 0-UNK PROBLEM SOLVING: PROBLEM SOLVING - SCORE: 0-UNK MEMORY: MEMORY - SCORE: 0-UNK SIGNATURE PANEL: The following modified sections: Transfers: Bed, Chair, Wheelchair - Score, Transfers: Toilet - Score , Locomotion: Walk - Score, Locomotion: Wheelchair - Score, Locomotion: Stairs - Score were [electron stevan] signed by Navin Albert PT on ThuAug 17 2018 10:58:01 [facility] [place]-0600 (Central Standard Time)
--- NOTE | 2018-08-17 15:59 | FAST ---
SHIFT START DATE/TIME: 08/17/2018 07:00 (MANAGER SOFTWARE) SHIFT END DATE/TIME: 08/17/2018 19:00 (MANAGER SOFTWARE) NAME JONY STEELE DATE OF : 1960 DATE OF ADMISSION: 08/13/2018 13:11 (MANAGER SOFTWARE) PHONE: AGE: 58 SSN# [id number] GENDER: Male ENCOUNTER PHYSICIAN: Dr. Juan Jones M.D. ADMISSION DIAGNOSIS: - Stroke 01 - Right Body (Left Brain) (.2) 22x4 millimeter acute infarction involving the right basal ganglia extending into the right liang ra diata and right periventricular white matter. EATING: EATING - STEP 1: Does the patient require the assistance of a person or device, or need extra time when eating? Yes. EATING - STEP 2: Does the patient require the assistance of a helper? No, patient only requires an assistive device, O R s/he takes more than reasonable time to eat, OR there is a safety concern, OR s/he requires modifie d food consistency EATING - SCORE: 6-RAAD GROOMING: Comb/brush hair Oral care GROOMING - STEP 1: Does the patient require the assistance of a person or device, or need extra time when grooming? Yes. GROOMING - STEP 2: Does the patient require the assistance of a helper? Yes. GROOMING - STEP 3: How much assistance does the patient require from the helper? Only prior equipment preparation/set up from the helper GROOMING - SCORE: 5-SUP BATHING: Activity did not occur on this shift BATHING - SCORE: 0-UNK DRESSING - UPPER BODY: Patient is not dressing in public clothing ARTICLES SCORE Total number of steps: 0 DRESSING - UPPER BODY - SCORE: 0-UNK DRESSING - LOWER BODY: Patient is not dressing in public clothing ARTICLES SCORE Total number of steps: 0 DRESSING - LOWER BODY - SCORE: 0-UNK TOILETING: TOILETING - STEP 1: Does the patient require the assistance of a person or device, or need extra time with toileting? Yes . TOILETING - STEP 2: Does the patient require the assistance of a helper? Yes. TOILETING - STEP 3: How much assistance does the patient require from the helper? Only supervision TOILETING - SCORE: 5-SUP BLADDER MANAGEMENT: BLADDER MANAGEMENT - STEP 1: Does the patient control the bladder completely and intentionally without equipment or devices or med ications, and is always continent? No. BLADDER MANAGEMENT - STEP 2: Does the patient require the assistance of a helper? No, patient requires and independently uses an a ssistive device, such as a urinal, bedpan, bedside commode, catheter, absorbent pad, or collecting de vice BLADDER MANAGEMENT - SCORE: 6-RAAD BOWEL MANAGEMENT: Activity did not occur on this shift BOWEL MANAGEMENT - SCORE: 7-IND TRANSFERS: BED, CHAIR, WHEELCHAIR: TRANSFERS: BED, CHAIR, WHEELCHAIR - STEP 1: Does the patient require assistance of a person or device, or need extra time with bed, chair, or whe elchair transfers? Yes. TRANSFERS: BED, CHAIR, WHEELCHAIR - STEP 2: Does the patient require the assistance of a helper? No. Patient only requires an assistive device fo r bed, chair, wheelchair transfers such as a sliding board, grab bar, or brace, OR s/he takes more th an reasonable time, OR there is a safety concern when s/he performs the transfers TRANSFERS: BED, CHAIR, WHEELCHAIR - SCORE: 6-RAAD TRANSFERS: TOILET: TRANSFERS: TOILET - STEP 1: Does the patient require the assistance of a person or device, or need extra time with toilet transfe rs? Yes. TRANSFERS: TOILET - STEP 2: Does the patient require the assistance of a helper? No. Patient only requires an assistive device russ ch as a grab bar or special seat, OR s/he takes more than reasonable time to perform toilet transfers , OR there is a safety concern when s/he performs toilet transfers. TRANSFERS: TOILET - SCORE: 6-RAAD TRANSFERS: SHOWER: Activity did not occur on this shift TRANSFERS: SHOWER - SCORE: 0-UNK TRANSFERS: TUB: Activity did not occur on this shift TRANSFERS: TUB - SCORE: 0-UNK LOCOMOTION: WALK: Activity did not occur on this shift LOCOMOTION: WALK - SCORE: 0-UNK LOCOMOTION: WHEELCHAIR: Activity did not occur on this shift LOCOMOTION: WHEELCHAIR - SCORE: 0-UNK COMPREHENSION: COMPREHENSION: TYPE: Both COMPREHENSION - STEP 1: Does the patient require help from a person or device, or need extra time to understand complex and a bstract ideas (such as current events, finances, discharge planning, medical issues, relationships, e tc)? No. COMPREHENSION - STEP 2: Does the patient need extra time, require an assistive device (such as glasses for visual comprehensi on or a hearing aid for auditory comprehension) or does s/he have mild difficulty understanding compl ex and abstract information? Yes. COMPREHENSION - SCORE: 6-RAAD EXPRESSION EXPRESSION: TYPE: Both EXPRESSION - STEP 1: Does the patient require help from a person or device, or need extra time expressing complex and abst ract ideas (such as current events, finances, discharge planning, medical issues, relationships, etc) ? No. EXPRESSION - STEP 2: Does the patient need extra time, require an assistive device (such as augmentive communication syste m or a communication board), OR does s/he have mild difficulty expressing complex and abstract ideas (including mild dysarthria or mild word-find problems)? Yes. EXPRESSION - SCORE: 6-RAAD SOCIAL INTERACTION: SOCIAL INTERACTION - STEP 1: Does the patient require a helper to interact with others in social and therapeutic situations? No. SOCIAL INTERACTION - STEP 2: Does the patient need extra time in social situations, OR does s/he interact with staff, other patien ts, and family members ONLY in structured environments, OR does s/he require medication for social in teraction? Yes, patient needs extra time SOCIAL INTERACTION - SCORE: 6-RAAD PROBLEM SOLVING: PROBLEM SOLVING - STEP 1: Does the patient need help from a person or device, or need extra time to solve complex problems such as managing a checking account or confronting interpersonal problems? No. PROBLEM SOLVING - STEP 2: Does the patient require extra time to make decisions or solve problems, OR does s/he have slight dif ficulty reading, initiating, or self-correcting in unfamiliar situations? Yes, patient needs extra ti me. PROBLEM SOLVING - SCORE: 6-RAAD MEMORY: MEMORY - STEP 1: Does the patient need help from a person or device, or need extra time to remember frequently encount ered people, daily routines, and executing requests? No. MEMORY - STEP 2: Does the patient have slight difficulty recognizing frequently encountered people, daily routines, or executing requests without the need for repetition or using self-initiated or environmental cues to remember? Yes. MEMORY - SCORE: 6-RAAD SIGNATURE PANEL: The following modified sections: Eating - Score, Grooming - Score, Bathing - Score, Dressing - Upper Body - Score, Dressing - Lower Body - Score, Toileting - Score, Bladder Management - Score, Bowel Man agement - Score, Transfers: Bed, Chair, Wheelchair - Score, Transfers: Toilet - Score, Transfers: Aiyana wer - Score, Transfers: Tub - Score, Locomotion: Walk - Score, Locomotion: Wheelchair - Score, Compre hension - Score, Expression - Score, Social Interaction - Score, Problem Solving - Score, Memory - Sc ore were [electronically] signed by Louis Walls on ThuAug 17 2018 15:58:14 GMT-0600 (Central Standard Time)
[2018-08-17 16:39] LABS: ALT/SGPT 47 U/L (12-78); AST/SGOT 41 U/L (15-37); Albumin 3.7 g/dL (3.4-5.0); Alkaline Phosphatase 77 U/L (45-117); Bilirubin Direct < 0.1 mg/dL (0-0.2); Bilirubin Total 0.2 mg/dL (0.2-1.0); Protein, Total 8.7 g/dL (6.4-8.2)
--- NOTE | 2018-08-17 17:46 | R.PN ---
ENCOUNTER DATE AND TIME: 08/17/2018 17:42 (FITTER WELDER) NAME JONY STEELE DATE OF : 1960 DATE OF ADMISSION: 08/13/2018 13:11 (FITTER WELDER) 22x4 millimeter acute infarction involving the right basal ganglia extending into the right liang ra diata and right periventricular white matterCHIEF COMPLAINT: Right hemispheric stroke with left sided incoordination and weakness SUBJECTIVE: Pt denied any depression. Pt denied any Shortness of Breath. Ambulated 250' with modified independence using a single prong cane. Up and down 91 steps with modifi ed independence using a single prong cane. LFTs are essentially normal. VITAL SIGNS Temperature: 98 F SBP/DBP: 114/77 Pulse: 92 Resp: 16 MEDICATION ALLERGIES: No Known Drug Allergies (NKDA) ENVIRONMENTAL ALLERGIES: - Substance Allergies None Known - Other Allergies None Known NURSING: - Shower allowing shower - Bladder care per protocol - Skin care per protocol PRECAUTIONS: - Weight Bearing Precaution WBAT right LE ACTIVITIES OOB only with supervision THERAPIES: - Occupational Therapy Evaluate and Treat. Cognitive Retraining. Visual Perceptual Training. - Speech Therapy Memory Strategies. Expressive Language Skills. Speech Intelligibility Training. Cognitive Training. R eceptive Language Skills. - Physical Therapy Evaluate and Treat. PHYSICAL EXAM - Gen Alert and awake Lying in bed No apparent distress Oriented to: person, time, and place - Skin No breakdown No abnormalities - Eyes No abnormalities - ENMT No abnormalities - Neck No abnormalities - CVS RRR - Chest No abnormalities - Resp Clear to auscultation - Abd +bowel sounds - GI nondistended Deferred - No abnormalities - Ext no edema - MSK 4+/5 weakness in right upper and lower extremities - Neuro 4/5 strength right upper and lower extremities. - Psych No abnormalities ASSESSMENT: Pt. is a 58 yo Right-handed black male.On 08/05/2018 Pt. presented to [facility] with sudden onset of right-side weakness.On 08/05/2018 he was admitted to [facility] with diagnosis 22x4 millimeter acute infarction involving the right basal ganglia extending i nto the right liang radiata and right periventricular white matter.His impairment category is Stroke 01 - Right Body (Left Brain) (01.2).Pre-morbidly, Pt. was independent/mod-I in Self-Care, Sphincter Control, Transfers Control, Communication, Social Cognition, and Locomotion; and he had good Sphinct er Control.Currently, he has deficits of Transfers Control, Endurance, Balance, Safety Awareness, Kristen f-Care, and Locomotion.Pt. is now referred to [facility] for acute in-patient rehabilitation in order to maximize patient's functional independence in activities of daily living, strength, ROM, and mobility.- Rehab Goal Patient has realistic goal of being discharged at assistance level 6-Marjorie to reside at Home with Fam kate/Relatives. MDM/PLAN: - Physical Therapy Gait dysfunction - to improve, our physical therapists will perform initial evaluation of pt's statu s upon admission and devise an individualized program for Gait Training, and Wheel Chair mobility Inability to transfer - to improve, our physical therapists will perform initial evaluation of pt's status upon admission and devise an individualized program for Bed mobility Need for home safety evaluation - to improve, our physical therapists will perform initial evaluatio n of pt's status upon admission and devise an individualized program for Home Evaluation Need in caregiver upon discharge - to improve, our physical therapists will perform initial evaluati on of pt's status upon admission and devise an individualized program for Caregiver Training New precaution - to improve, our physical therapists will perform initial evaluation of pt's status upon admission and devise an individualized program for Patient precaution education Poor balance - to improve, our physical therapists will perform initial evaluation of pt's status up on admission and devise an individualized program for Balance Training Poor endurance - to improve, our physical therapists will perform initial evaluation of pt's status upon admission and devise an individualized program for Endurance Training Weakness - to improve, our physical therapists will perform initial evaluation of pt's status upon a dmission and devise an individualized program for Aquatic Therapy, Neuromuscular Reeducation, and Str engthening Achieving independence - to improve, our physical therapists will perform initial evaluation of pt's status upon admission and devise an individualized program for Community Reintegration Activities - Occupational Therapy ADL deficits - to improve, our occupation therapists will perform initial evaluation of pt's status upon admission and devise an individualized program for Bathing, Bed mobility, Community Reintegratio n, Cooking, Dressing, Eating, Fine Motor Skills, Grooming, Homemaking, Kitchen Mobility, Laundry, Pat ient Education, Safety Awareness, Splinting - Positioning, Transfers(Toilet, Tub, Shower), and Wheel Chair Management 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 cattle care worker - to improve, our occupation therapists will perform initial evaluation of pt's status upon admission and devise an individualized program for Caregiver Training Weakness - to improve, our occupation therapists will perform initial evaluation of pt's status upon admission and devise an individualized program for Aquatic Therapy, Balance, Endurance, UE ROM, and UE strengthening - Diet Type Continue Regular - Diet - Liquid Texture Continue Regular - Tube Feed Continue N/A - Bladder care per protocol - Weight Bearing Precaution WBAT right LE - Skin care per protocol - Diet - Solid Texture Continue Regular - Shower allowing shower for Dementia, TBI, Stroke, or others FUNCTIONAL STATUS: UPDATED AT WEEKLY TEAM CONFERENCE - Bladder Same accident frequency: 7-Ind - No accidents in the past 7 days - Bowel Same accident frequency: 7-Ind - No accidents in the past 7 days - Walking Same score based on distance walked: 3(>=150ft) FUNCTIONAL STATUS: - Self-Care A. Eating Ind B. Grooming sup C. Bathing Brody D. Dressing - Upper sup E. Dressing - Lower Brody F. Toileting Brody - Sphincter Control G: Bladder control Ind H: Bowel control Ind - Transfers Control I. Bed/Chair/Wheelchair Brody J. Toilet Brody K. Tub/Shower Brody - Locomotion L. Walk/Wheelchair (B) CGA-to-Brody M. Stairs ADNO - Communication N. Comprehension (B) Ind O. Expression (B) Ind - Social Cognition P. Social Interaction Marjorie Q. Problem Solving Ind R. Memory Ind - Endurance Fair - Balance Poor - Safety Awareness Fair CURRENT FUNC. DEFICITS: Transfers Control, Endurance, Balance, Safety Awareness, Self-Care, and Locomotion SIGNATURE PANEL: (FITTER WELDER)
[2018-08-17] MEDS: ATORVASTATIN 80 MG TAB PO SCH (20:04)
--- NOTE | 2018-08-18 02:33 | FAST ---
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 Juan Jones M.D. ADMISSION DIAGNOSIS: - Stroke 01 - Right Body (Left Brain) (.2) 22x4 millimeter acute infarction involving the right basal ganglia extending into the right liang ra diata and right periventricular white matter. EATING: Activity did not occur on this shift EATING - SCORE: 0-UNK GROOMING: Activity did not occur on this shift GROOMING - SCORE: 0-UNK BATHING: Activity did not occur on this shift BATHING - SCORE: 0-UNK DRESSING - UPPER BODY: Activity did not occur on this shift ARTICLES SCORE Total number of steps: 0 DRESSING - UPPER BODY - SCORE: 0-UNK DRESSING - LOWER BODY: Activity did not occur on this shift ARTICLES SCORE Total number of steps: 0 DRESSING - LOWER BODY - SCORE: 0-UNK TOILETING: TOILETING - STEP 1: Does the patient require the assistance of a person or device, or need extra time with toileting? Yes . TOILETING - STEP 2: Does the patient require the assistance of a helper? No. TOILETING - SCORE: 6-RAAD BLADDER MANAGEMENT: BLADDER MANAGEMENT - STEP 1: Does the patient control the bladder completely and intentionally without equipment or devices or med ications, and is always continent? No. BLADDER MANAGEMENT - STEP 2: Does the patient require the assistance of a helper? No, patient requires and independently uses an a ssistive device, such as a urinal, bedpan, bedside commode, catheter, absorbent pad, or collecting de vice BLADDER MANAGEMENT - SCORE: 6-RAAD BOWEL MANAGEMENT: Activity did not occur on this shift BOWEL MANAGEMENT - SCORE: 7-IND TRANSFERS: BED, CHAIR, WHEELCHAIR: TRANSFERS: BED, CHAIR, WHEELCHAIR - STEP 1: Does the patient require assistance of a person or device, or need extra time with bed, chair, or whe elchair transfers? Yes. TRANSFERS: BED, CHAIR, WHEELCHAIR - STEP 2: Does the patient require the assistance of a helper? No. Patient only requires an assistive device fo r bed, chair, wheelchair transfers such as a sliding board, grab bar, or brace, OR s/he takes more th an reasonable time, OR there is a safety concern when s/he performs the transfers TRANSFERS: BED, CHAIR, WHEELCHAIR - SCORE: 6-RAAD TRANSFERS: TOILET: TRANSFERS: TOILET - STEP 1: Does the patient require the assistance of a person or device, or need extra time with toilet transfe rs? Yes. TRANSFERS: TOILET - STEP 2: Does the patient require the assistance of a helper? No. Patient only requires an assistive device russ ch as a grab bar or special seat, OR s/he takes more than reasonable time to perform toilet transfers , OR there is a safety concern when s/he performs toilet transfers. TRANSFERS: TOILET - SCORE: 6-RAAD TRANSFERS: SHOWER: Activity did not occur on this shift TRANSFERS: SHOWER - SCORE: 0-UNK TRANSFERS: TUB: Activity did not occur on this shift TRANSFERS: TUB - SCORE: 0-UNK LOCOMOTION: WALK: Activity did not occur on this shift LOCOMOTION: WALK - SCORE: 0-UNK LOCOMOTION: WHEELCHAIR: Activity did not occur on this shift LOCOMOTION: WHEELCHAIR - SCORE: 0-UNK COMPREHENSION: COMPREHENSION: TYPE: Both COMPREHENSION - STEP 1: Does the patient require help from a person or device, or need extra time to understand complex and a bstract ideas (such as current events, finances, discharge planning, medical issues, relationships, e tc)? No. COMPREHENSION - STEP 2: Does the patient need extra time, require an assistive device (such as glasses for visual comprehensi on or a hearing aid for auditory comprehension) or does s/he have mild difficulty understanding compl ex and abstract information? Yes. COMPREHENSION - SCORE: 6-RAAD EXPRESSION EXPRESSION: TYPE: Both EXPRESSION - STEP 1: Does the patient require help from a person or device, or need extra time expressing complex and abst ract ideas (such as current events, finances, discharge planning, medical issues, relationships, etc) ? No. EXPRESSION - STEP 2: Does the patient need extra time, require an assistive device (such as augmentive communication syste m or a communication board), OR does s/he have mild difficulty expressing complex and abstract ideas (including mild dysarthria or mild word-find problems)? No. EXPRESSION - SCORE: 7-IND SOCIAL INTERACTION: SOCIAL INTERACTION - STEP 1: Does the patient require a helper to interact with others in social and therapeutic situations? No. SOCIAL INTERACTION - STEP 2: Does the patient need extra time in social situations, OR does s/he interact with staff, other patien ts, and family members ONLY in structured environments, OR does s/he require medication for social in teraction? No. SOCIAL INTERACTION - SCORE: 7-IND PROBLEM SOLVING: PROBLEM SOLVING - STEP 1: Does the patient need help from a person or device, or need extra time to solve complex problems such as managing a checking account or confronting interpersonal problems? No. PROBLEM SOLVING - STEP 2: Does the patient require extra time to make decisions or solve problems, OR does s/he have slight dif ficulty reading, initiating, or self-correcting in unfamiliar situations? No. PROBLEM SOLVING - SCORE: 7-IND MEMORY: MEMORY - STEP 1: Does the patient need help from a person or device, or need extra time to remember frequently encount ered people, daily routines, and executing requests? No. MEMORY - STEP 2: Does the patient have slight difficulty recognizing frequently encountered people, daily routines, or executing requests without the need for repetition or using self-initiated or environmental cues to remember? No. MEMORY - SCORE: 7-IND SIGNATURE PANEL: The following modified sections: Eating - Score, Grooming - Score, Bathing - Score, Dressing - Upper Body - Score, Dressing - Lower Body - Score, Toileting - Score, Bladder Management - Score, Bowel Man agement - Score, Transfers: Bed, Chair, Wheelchair - Score, Transfers: Toilet - Score, Transfers: Aiyana wer - Score, Transfers: Tub - Score, Locomotion: Walk - Score, Locomotion: Wheelchair - Score, Compre hension - Score, Expression - Score, Social Interaction - Score, Problem Solving - Score, Memory - Sc ore were [electronically] signed by Greer Christianson CNA on ThuAug 18 2018 02:32:43 T-0600 ([facility])
[2018-08-18] MEDS ORDERED: TRAMADOL HCL 50 MG TAB PO PRN (06:59)
[2018-08-18] MEDS: FOLIC ACID 1 MG TABLET PO SCH (07:23)
[2018-08-18] MEDS: THIAMINE HCL 100 MG TABLET PO SCH (07:23)
[2018-08-18] MEDS: APIXABAN 2.5 MG TABLET PO SCH ×2 (07:23→19:23)
[2018-08-18] MEDS: MULTIVITAMIN TAB PO SCH (07:23)
[2018-08-18] MEDS: FAMOTIDINE 20 MG TAB PO SCH (07:23)
[2018-08-18] MEDS: AMLODIPINE 2.5 MG TAB PO SCH (07:24)
[2018-08-18] MEDS: TRAMADOL HCL 50 MG TAB PO PRN ×2 (12:59→19:23)
--- NOTE | 2018-08-18 13:47 | FAST ---
SHIFT START DATE/TIME: 08/18/2018 07:00 (SEWER HAND) SHIFT END DATE/TIME: 08/18/2018 19:00 (SEWER HAND) NAME JONY STEELE DATE OF : 1960 DATE OF ADMISSION: 08/13/2018 13:11 (SEWER HAND) PHONE: AGE: 58 SSN# [id number] GENDER: Male ENCOUNTER PHYSICIAN: Dr. Juan Jones M.D. ADMISSION DIAGNOSIS: - Stroke 01 - Right Body (Left Brain) (.2) 22x4 millimeter acute infarction involving the right basal ganglia extending into the right liang ra diata and right periventricular white matter. EATING: EATING - STEP 1: Does the patient require the assistance of a person or device, or need extra time when eating? Yes. EATING - STEP 2: Does the patient require the assistance of a helper? No, patient only requires an assistive device, O R s/he takes more than reasonable time to eat, OR there is a safety concern, OR s/he requires modifie d food consistency EATING - SCORE: 6-RAAD GROOMING: Comb/brush hair Wash, rinse, and dry face Wash, rinse, and dry hands GROOMING - STEP 1: Does the patient require the assistance of a person or device, or need extra time when grooming? Yes. GROOMING - STEP 2: Does the patient require the assistance of a helper? Yes. GROOMING - STEP 3: How much assistance does the patient require from the helper? Only prior equipment preparation/set up from the helper GROOMING - SCORE: 5-SUP BATHING: Activity did not occur on this shift BATHING - SCORE: 0-UNK DRESSING - UPPER BODY: Activity did not occur on this shift ARTICLES SCORE Total number of steps: 0 DRESSING - UPPER BODY - SCORE: 0-UNK DRESSING - LOWER BODY: Activity did not occur on this shift ARTICLES SCORE Total number of steps: 0 DRESSING - LOWER BODY - SCORE: 0-UNK TOILETING: TOILETING - STEP 1: Does the patient require the assistance of a person or device, or need extra time with toileting? Yes . TOILETING - STEP 2: Does the patient require the assistance of a helper? No. TOILETING - SCORE: 6-RAAD BLADDER MANAGEMENT: BLADDER MANAGEMENT - STEP 1: Does the patient control the bladder completely and intentionally without equipment or devices or med ications, and is always continent? No. BLADDER MANAGEMENT - STEP 2: Does the patient require the assistance of a helper? No, patient only requires extra time BLADDER MANAGEMENT - SCORE: 6-RAAD BLADDER MANAGEMENT - FREQUENCY OF ACCIDENTS: BLADDER MANAGEMENT(FA) - STEP 1: How many accidents has the patient had during the current shift? 0 BOWEL MANAGEMENT: BOWEL MANAGEMENT - STEP 1: Does the patient control bowels completely and intentionally without equipment devices or medications AND is always continent? Yes. BOWEL MANAGEMENT - SCORE: 7-IND BOWEL MANAGEMENT - FREQUENCY OF ACCIDENTS: BOWEL MANAGEMENT(FA) - STEP 1: How many accidents has the patient had during the current shift? 0 TRANSFERS: BED, CHAIR, WHEELCHAIR: TRANSFERS: BED, CHAIR, WHEELCHAIR - STEP 1: Does the patient require assistance of a person or device, or need extra time with bed, chair, or whe elchair transfers? Yes. TRANSFERS: BED, CHAIR, WHEELCHAIR - STEP 2: Does the patient require the assistance of a helper? No. Patient only requires an assistive device fo r bed, chair, wheelchair transfers such as a sliding board, grab bar, or brace, OR s/he takes more th an reasonable time, OR there is a safety concern when s/he performs the transfers TRANSFERS: BED, CHAIR, WHEELCHAIR - SCORE: 6-RAAD TRANSFERS: TOILET: TRANSFERS: TOILET - STEP 1: Does the patient require the assistance of a person or device, or need extra time with toilet transfe rs? No. TRANSFERS: TOILET - SCORE: 7-IND TRANSFERS: SHOWER: Activity did not occur on this shift TRANSFERS: SHOWER - SCORE: 0-UNK TRANSFERS: TUB: Activity did not occur on this shift TRANSFERS: TUB - SCORE: 0-UNK LOCOMOTION: WALK: LOCOMOTION: WALK - STEP 1: Does the patient need help from a person or device, or need extra time to walk 150 feet? Yes. LOCOMOTION: WALK - STEP 2: How much assistance does the patient require to walk a minimum of 150 feet? Only supervision, cuing, or coaxing LOCOMOTION: WALK - SCORE: 5-SUP LOCOMOTION: WHEELCHAIR: LOCOMOTION: WHEELCHAIR - STEP 1: Does the patient need help to go 150 feet in a wheelchair? Yes. LOCOMOTION: WHEELCHAIR - STEP 2: How much assistance does the patient need from the helper? Only supervision, cuing, or coaxing LOCOMOTION: WHEELCHAIR - SCORE: 5-SUP COMPREHENSION: COMPREHENSION: TYPE: Both COMPREHENSION - STEP 1: Does the patient require help from a person or device, or need extra time to understand complex and a bstract ideas (such as current events, finances, discharge planning, medical issues, relationships, e tc)? No. COMPREHENSION - STEP 2: Does the patient need extra time, require an assistive device (such as glasses for visual comprehensi on or a hearing aid for auditory comprehension) or does s/he have mild difficulty understanding compl ex and abstract information? Yes. COMPREHENSION - SCORE: 6-RAAD EXPRESSION EXPRESSION: TYPE: Both EXPRESSION - STEP 1: Does the patient require help from a person or device, or need extra time expressing complex and abst ract ideas (such as current events, finances, discharge planning, medical issues, relationships, etc) ? No. EXPRESSION - STEP 2: Does the patient need extra time, require an assistive device (such as augmentive communication syste m or a communication board), OR does s/he have mild difficulty expressing complex and abstract ideas (including mild dysarthria or mild word-find problems)? Yes. EXPRESSION - SCORE: 6-RAAD SOCIAL INTERACTION: SOCIAL INTERACTION - STEP 1: Does the patient require a helper to interact with others in social and therapeutic situations? No. SOCIAL INTERACTION - STEP 2: Does the patient need extra time in social situations, OR does s/he interact with staff, other patien ts, and family members ONLY in structured environments, OR does s/he require medication for social in teraction? Yes, patient needs extra time SOCIAL INTERACTION - SCORE: 6-RAAD PROBLEM SOLVING: PROBLEM SOLVING - STEP 1: Does the patient need help from a person or device, or need extra time to solve complex problems such as managing a checking account or confronting interpersonal problems? No. PROBLEM SOLVING - STEP 2: Does the patient require extra time to make decisions or solve problems, OR does s/he have slight dif ficulty reading, initiating, or self-correcting in unfamiliar situations? Yes, patient needs extra ti me. PROBLEM SOLVING - SCORE: 6-RAAD MEMORY: MEMORY - STEP 1: Does the patient need help from a person or device, or need extra time to remember frequently encount ered people, daily routines, and executing requests? No. MEMORY - STEP 2: Does the patient have slight difficulty recognizing frequently encountered people, daily routines, or executing requests without the need for repetition or using self-initiated or environmental cues to remember? Yes. MEMORY - SCORE: 6-RAAD SIGNATURE PANEL: The following modified sections: Eating - Score, Grooming - Score, Bathing - Score, Dressing - Upper Body - Score, Dressing - Lower Body - Score, Toileting - Score, Bladder Management - Score, Bowel Man agement - Score, Transfers: Bed, Chair, Wheelchair - Score, Transfers: Toilet - Score, Transfers: Aiyana wer - Score, Transfers: Tub - Score, Locomotion: Walk - Score, Locomotion: Wheelchair - Score, Compre hension - Score, Expression - Score, Social Interaction - Score, Problem Solving - Score, Memory - Sc ore were [electronically] signed by Awais PedrozaNAnitha on ThuAug 18 2018 13:46:05 GMT-0600 ([facility])
--- NOTE | 2018-08-18 16:48 | R.PN ---
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 Pt denied any Shortness of Breath. Ambulated 250' with modified independence using a single prong cane. Up and down 91 steps with modifi ed independence using a single prong cane. LFTs are essentially normal. Self-propelled wheelchair outdoors with modified idependence. He has mild swelling of the right knee after his therapy. VITAL SIGNS Temperature: 97.8 F SBP/DBP: 124/73 Pulse: 89 Resp: 16 MEDICATION ALLERGIES: No Known Drug Allergies (NKDA) ENVIRONMENTAL ALLERGIES: - Substance Allergies None Known - Other Allergies None Known NURSING: - Shower allowing shower - Bladder care per protocol - Skin care per protocol PRECAUTIONS: - Weight Bearing Precaution WBAT right LE ACTIVITIES OOB only with supervision THERAPIES: - Occupational Therapy Evaluate and Treat. Cognitive Retraining. Visual Perceptual Training. - Speech Therapy Memory Strategies. Expressive Language Skills. Speech Intelligibility Training. Cognitive Training. R eceptive Language Skills. - Physical Therapy Evaluate and Treat. PHYSICAL EXAM - Gen Alert and awake Lying in bed No apparent distress Oriented to: person, time, and place - Skin No breakdown No abnormalities - Eyes No abnormalities - ENMT No abnormalities - Neck No abnormalities - CVS RRR - Chest No abnormalities - Resp Clear to auscultation - Abd +bowel sounds - GI nondistended Deferred - No abnormalities - Ext no edema - MSK 4+/5 weakness in right upper and lower extremities - Neuro 4/5 strength right upper and lower extremities. - Psych No abnormalities ASSESSMENT: Pt. is a 58 yo Right-handed black male.On 08/05/2018 Pt. presented to [facility] with sudden onset of right-side weakness.On 08/05/2018 he was admitted to [facility] with diagnosis 22x4 millimeter acute infarction involving the right basal ganglia extending i nto the right liang radiata and right periventricular white matter.His impairment category is Stroke 01 - Right Body (Left Brain) (01.2).Pre-morbidly, Pt. was independent/mod-I in Self-Care, Sphincter Control, Transfers Control, Communication, Social Cognition, and Locomotion; and he had good Sphinct er Control.Currently, he has deficits of Transfers Control, Endurance, Balance, Safety Awareness, Kristen f-Care, and Locomotion.Pt. is now referred to [facility] for acute in-patient rehabilitation in order to maximize patient's functional independence in activities of daily living, strength, ROM, and mobility.- Rehab Goal Patient has realistic goal of being discharged at assistance level 6-Marjorie to reside at Home with Fam kate/Relatives. MDM/PLAN: - Physical Therapy Gait dysfunction - to improve, our physical therapists will perform initial evaluation of pt's statu s upon admission and devise an individualized program for Gait Training, and Wheel Chair mobility Inability to transfer - to improve, our physical therapists will perform initial evaluation of pt's status upon admission and devise an individualized program for Bed mobility Need for home safety evaluation - to improve, our physical therapists will perform initial evaluatio n of pt's status upon admission and devise an individualized program for Home Evaluation Need in caregiver upon discharge - to improve, our physical therapists will perform initial evaluati on of pt's status upon admission and devise an individualized program for Caregiver Training New precaution - to improve, our physical therapists will perform initial evaluation of pt's status upon admission and devise an individualized program for Patient precaution education Poor balance - to improve, our physical therapists will perform initial evaluation of pt's status up on admission and devise an individualized program for Balance Training Poor endurance - to improve, our physical therapists will perform initial evaluation of pt's status upon admission and devise an individualized program for Endurance Training Weakness - to improve, our physical therapists will perform initial evaluation of pt's status upon a dmission and devise an individualized program for Aquatic Therapy, Neuromuscular Reeducation, and Str engthening Achieving independence - to improve, our physical therapists will perform initial evaluation of pt's status upon admission and devise an individualized program for Community Reintegration Activities - Occupational Therapy ADL deficits - to improve, our occupation therapists will perform initial evaluation of pt's status upon admission and devise an individualized program for Bathing, Bed mobility, Community Reintegratio n, Cooking, Dressing, Eating, Fine Motor Skills, Grooming, Homemaking, Kitchen Mobility, Laundry, Pat ient Education, Safety Awareness, Splinting - Positioning, Transfers(Toilet, Tub, Shower), and Wheel Chair Management Need for multi care technician - to improve, our occupation therapists will perform initial evaluation of pt's status upon admission and devise an individualized program for Caregiver Training Weakness - to improve, our occupation therapists will perform initial evaluation of pt's status upon admission and devise an individualized program for Aquatic Therapy, Balance, Endurance, UE ROM, and UE strengthening - Diet Type Continue Regular - Diet - Liquid Texture Continue Regular - Tube Feed Continue N/A - Bladder care per protocol - Weight Bearing Precaution WBAT right LE - Skin care per protocol - Diet - Solid Texture Continue Regular - Shower allowing shower for Dementia, TBI, Stroke, or others FUNCTIONAL STATUS: UPDATED AT WEEKLY TEAM CONFERENCE - Bladder Same accident frequency: 7-Ind - No accidents in the past 7 days - Bowel Same accident frequency: 7-Ind - No accidents in the past 7 days - Walking Same score based on distance walked: 3(>=150ft) FUNCTIONAL STATUS: - Self-Care A. Eating Ind B. Grooming sup C. Bathing Brody D. Dressing - Upper sup E. Dressing - Lower Brody F. Toileting Brody - Sphincter Control G: Bladder control Ind H: Bowel control Ind - Transfers Control I. Bed/Chair/Wheelchair Brody J. Toilet Brody K. Tub/Shower Brody - Locomotion L. Walk/Wheelchair (B) CGA-to-Brody M. Stairs ADNO - Communication N. Comprehension (B) Ind O. Expression (B) Ind - Social Cognition P. Social Interaction Marjorie Q. Problem Solving Ind R. Memory Ind - Endurance Fair - Balance Poor - Safety Awareness Fair CURRENT FUNC. DEFICITS: Transfers Control, Endurance, Balance, Safety Awareness, Self-Care, and Locomotion SIGNATURE PANEL: (BINDER FIXER)
[2018-08-18] MEDS: ATORVASTATIN 80 MG TAB PO SCH (20:01)
[2018-08-19] MEDS: TRAMADOL HCL 50 MG TAB PO PRN ×5 (00:12→22:13)
--- NOTE | 2018-08-19 00:39 | FAST ---
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 Juan Jones M.D. ADMISSION DIAGNOSIS: - Stroke 01 - Right Body (Left Brain) (.2) 22x4 millimeter acute infarction involving the right basal ganglia extending into the right liang ra diata and right periventricular white matter. EATING: Activity did not occur on this shift EATING - SCORE: 0-UNK GROOMING: Activity did not occur on this shift GROOMING - SCORE: 0-UNK BATHING: Activity did not occur on this shift BATHING - SCORE: 0-UNK DRESSING - UPPER BODY: Patient is not dressing in public clothing ARTICLES SCORE Total number of steps: 0 DRESSING - UPPER BODY - SCORE: 0-UNK DRESSING - LOWER BODY: Patient is not dressing in public clothing ARTICLES SCORE Total number of steps: 0 DRESSING - LOWER BODY - SCORE: 0-UNK TOILETING: TOILETING - STEP 1: Does the patient require the assistance of a person or device, or need extra time with toileting? Yes . TOILETING - STEP 2: Does the patient require the assistance of a helper? Yes. TOILETING - STEP 3: How much assistance does the patient require from the helper? Only supervision TOILETING - SCORE: 5-SUP BLADDER MANAGEMENT: BLADDER MANAGEMENT - STEP 1: Does the patient control the bladder completely and intentionally without equipment or devices or med ications, and is always continent? Yes. BLADDER MANAGEMENT - SCORE: 7-IND BOWEL MANAGEMENT: Activity did not occur on this shift BOWEL MANAGEMENT - SCORE: 7-IND TRANSFERS: BED, CHAIR, WHEELCHAIR: TRANSFERS: BED, CHAIR, WHEELCHAIR - STEP 1: Does the patient require assistance of a person or device, or need extra time with bed, chair, or whe elchair transfers? Yes. TRANSFERS: BED, CHAIR, WHEELCHAIR - STEP 2: Does the patient require the assistance of a helper? Yes. TRANSFERS: BED, CHAIR, WHEELCHAIR - STEP 3: How much assistance does the patient require from the helper? Lifting of the legs TRANSFERS: BED, CHAIR, WHEELCHAIR - STEP 4: How many legs does the patient require the helper to lift? one leg TRANSFERS: BED, CHAIR, WHEELCHAIR - SCORE: 4-MIN TRANSFERS: TOILET: Activity did not occur on this shift TRANSFERS: TOILET - SCORE: 0-UNK TRANSFERS: SHOWER: Activity did not occur on this shift TRANSFERS: SHOWER - SCORE: 0-UNK TRANSFERS: TUB: Activity did not occur on this shift TRANSFERS: TUB - SCORE: 0-UNK LOCOMOTION: WALK: Activity did not occur on this shift LOCOMOTION: WALK - SCORE: 0-UNK LOCOMOTION: WHEELCHAIR: Activity did not occur on this shift LOCOMOTION: WHEELCHAIR - SCORE: 0-UNK COMPREHENSION: COMPREHENSION: TYPE: Both COMPREHENSION - STEP 1: Does the patient require help from a person or device, or need extra time to understand complex and a bstract ideas (such as current events, finances, discharge planning, medical issues, relationships, e tc)? No. COMPREHENSION - STEP 2: Does the patient need extra time, require an assistive device (such as glasses for visual comprehensi on or a hearing aid for auditory comprehension) or does s/he have mild difficulty understanding compl ex and abstract information? Yes. COMPREHENSION - SCORE: 6-RAAD EXPRESSION EXPRESSION: TYPE: Both EXPRESSION - STEP 1: Does the patient require help from a person or device, or need extra time expressing complex and abst ract ideas (such as current events, finances, discharge planning, medical issues, relationships, etc) ? No. EXPRESSION - STEP 2: Does the patient need extra time, require an assistive device (such as augmentive communication syste m or a communication board), OR does s/he have mild difficulty expressing complex and abstract ideas (including mild dysarthria or mild word-find problems)? No. EXPRESSION - SCORE: 7-IND SOCIAL INTERACTION: SOCIAL INTERACTION - STEP 1: Does the patient require a helper to interact with others in social and therapeutic situations? No. SOCIAL INTERACTION - STEP 2: Does the patient need extra time in social situations, OR does s/he interact with staff, other patien ts, and family members ONLY in structured environments, OR does s/he require medication for social in teraction? No. SOCIAL INTERACTION - SCORE: 7-IND PROBLEM SOLVING: PROBLEM SOLVING - STEP 1: Does the patient need help from a person or device, or need extra time to solve complex problems such as managing a checking account or confronting interpersonal problems? No. PROBLEM SOLVING - STEP 2: Does the patient require extra time to make decisions or solve problems, OR does s/he have slight dif ficulty reading, initiating, or self-correcting in unfamiliar situations? Yes, patient needs extra ti me. PROBLEM SOLVING - SCORE: 6-RAAD MEMORY: MEMORY - STEP 1: Does the patient need help from a person or device, or need extra time to remember frequently encount ered people, daily routines, and executing requests? No. MEMORY - STEP 2: Does the patient have slight difficulty recognizing frequently encountered people, daily routines, or executing requests without the need for repetition or using self-initiated or environmental cues to remember? No. MEMORY - SCORE: 7-IND SIGNATURE PANEL: The following modified sections: Eating - Score, Grooming - Score, Dressing - Upper Body - Score, Carlos ssing - Lower Body - Score, Toileting - Score, Bladder Management - Score, Bowel Management - Score, Transfers: Bed, Chair, Wheelchair - Score, Transfers: Toilet - Score, Transfers: Shower - Score, Silverio sfers: Tub - Score, Locomotion: Walk - Score, Locomotion: Wheelchair - Score, Comprehension - Score, Expression - Score, Social Interaction - Score, Problem Solving - Score, Memory - Score were [electro nically] signed by Frances Álvarez CNA on ThuAug 19 2018 00:38:37 GMT-0600 (Central Standard Time)
[2018-08-19 06:30] LABS: Absolute Lymphocytes (CBC) 1.4 K/uL (0.7-4.9); Absolute Monocytes 1.1 K/uL (0.1-1.3); Absolute Neutrophil 4.8 K/uL (1.8-8.0); Basophils % 1.1 % (0-1.3); Eosinophils % 5.2 % (0-4.4); Hematocrit 36.7 % (39.6-49.0); Lymphocytes % 17.5 % (15.3-44.8); MPV 7.9 fL (7.6-11.3); Monocytes % 14.5 % (3.3-12.3); RBC Red Blood Cell Count 3.88 M/uL (4.33-5.43)
[2018-08-19 06:41] LABS: Albumin 3.1 g/dL (3.4-5.0); BUN Blood Urea Nitrogen 14 mg/dL (7-18); Bicarbonate 31 mmol/L (21-32); Glucose Level 106 mg/dL (74-106); Magnesium 1.8 mg/dL (1.8-2.4); Potassium 4.1 mmol/L (3.5-5.1); Sodium Level 138 mmol/L (136-145)
[2018-08-19] MEDS: predniSONE 10 MG TAB PO SCH (08:06)
[2018-08-19] MEDS: AMLODIPINE 2.5 MG TAB PO SCH (08:07)
[2018-08-19] MEDS: MULTIVITAMIN TAB PO SCH (08:07)
[2018-08-19] MEDS: FAMOTIDINE 20 MG TAB PO SCH (08:07)
[2018-08-19] MEDS: APIXABAN 2.5 MG TABLET PO SCH ×2 (08:08→20:41)
[2018-08-19] MEDS: THIAMINE HCL 100 MG TABLET PO SCH (08:10)
[2018-08-19] MEDS: LIDOCAINE 5% PATCH TOP SCH (08:10)
[2018-08-19] MEDS: FOLIC ACID 1 MG TABLET PO SCH (08:10)
--- NOTE | 2018-08-19 08:23 | RAD REPORT ---
EXAM DESCRIPTION: RAD - Knee Right 2 View - 08/19/2018 7:35 am CLINICAL HISTORY: increase swelling/pain Pain in swelling COMPARISON: No comparisons FINDINGS: Lucency is seen in the superolateral aspect of the patella which may represent a bipartite patella or less likely a fracture if the patient has a history of recent trauma. Correlation with cl inical point tenderness in this location is recommended. Small suprapatellar joint effusion is presen t. Small tibial spine osteophyte present suggesting early arthritic changes.
--- NOTE | 2018-08-19 13:22 | FAST ---
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 Juan Jones M.D. ADMISSION DIAGNOSIS: - Stroke 01 - Right Body (Left Brain) (.2) 22x4 millimeter acute infarction involving the right basal ganglia extending into the right liang ra diata and right periventricular white matter. EATING: EATING - STEP 1: Does the patient require the assistance of a person or device, or need extra time when eating? Yes. EATING - STEP 2: Does the patient require the assistance of a helper? No, patient only requires an assistive device, O R s/he takes more than reasonable time to eat, OR there is a safety concern, OR s/he requires modifie d food consistency EATING - SCORE: 6-RAAD GROOMING: Comb/brush hair Oral care Wash, rinse, and dry face Wash, rinse, and dry hands GROOMING - STEP 1: Does the patient require the assistance of a person or device, or need extra time when grooming? Yes. GROOMING - STEP 2: Does the patient require the assistance of a helper? No. The patient only requires an assistive devic e, OR takes more than reasonable time to groom, OR there is a concern for safety as the patient groom s GROOMING - SCORE: 6-RAAD BATHING: Activity did not occur on this shift BATHING - SCORE: 0-UNK DRESSING - UPPER BODY: Activity did not occur on this shift ARTICLES SCORE Total number of steps: 0 DRESSING - UPPER BODY - SCORE: 0-UNK DRESSING - LOWER BODY: Activity did not occur on this shift ARTICLES SCORE Total number of steps: 0 DRESSING - LOWER BODY - SCORE: 0-UNK TOILETING: TOILETING - STEP 1: Does the patient require the assistance of a person or device, or need extra time with toileting? Yes . TOILETING - STEP 2: Does the patient require the assistance of a helper? No. TOILETING - SCORE: 6-RAAD BLADDER MANAGEMENT: BLADDER MANAGEMENT - STEP 1: Does the patient control the bladder completely and intentionally without equipment or devices or med ications, and is always continent? No. BLADDER MANAGEMENT - STEP 2: Does the patient require the assistance of a helper? No, patient requires and independently uses an a ssistive device, such as a urinal, bedpan, bedside commode, catheter, absorbent pad, or collecting de vice BLADDER MANAGEMENT - SCORE: 6-RAAD BLADDER MANAGEMENT - FREQUENCY OF ACCIDENTS: BLADDER MANAGEMENT(FA) - STEP 1: How many accidents has the patient had during the current shift? 0 BOWEL MANAGEMENT: Activity did not occur on this shift BOWEL MANAGEMENT - SCORE: 7-IND BOWEL MANAGEMENT - FREQUENCY OF ACCIDENTS: BOWEL MANAGEMENT(FA) - STEP 1: How many accidents has the patient had during the current shift? 0 TRANSFERS: BED, CHAIR, WHEELCHAIR: TRANSFERS: BED, CHAIR, WHEELCHAIR - STEP 1: Does the patient require assistance of a person or device, or need extra time with bed, chair, or whe elchair transfers? Yes. TRANSFERS: BED, CHAIR, WHEELCHAIR - STEP 2: Does the patient require the assistance of a helper? No. Patient only requires an assistive device fo r bed, chair, wheelchair transfers such as a sliding board, grab bar, or brace, OR s/he takes more th an reasonable time, OR there is a safety concern when s/he performs the transfers TRANSFERS: BED, CHAIR, WHEELCHAIR - SCORE: 6-RAAD TRANSFERS: TOILET: TRANSFERS: TOILET - STEP 1: Does the patient require the assistance of a person or device, or need extra time with toilet transfe rs? Yes. TRANSFERS: TOILET - STEP 2: Does the patient require the assistance of a helper? No. Patient only requires an assistive device russ ch as a grab bar or special seat, OR s/he takes more than reasonable time to perform toilet transfers , OR there is a safety concern when s/he performs toilet transfers. TRANSFERS: TOILET - SCORE: 6-RAAD TRANSFERS: SHOWER: Activity did not occur on this shift TRANSFERS: SHOWER - SCORE: 0-UNK TRANSFERS: TUB: Activity did not occur on this shift TRANSFERS: TUB - SCORE: 0-UNK LOCOMOTION: WALK: Activity did not occur on this shift LOCOMOTION: WALK - SCORE: 0-UNK LOCOMOTION: WHEELCHAIR: LOCOMOTION: WHEELCHAIR - STEP 1: Does the patient need help to go 150 feet in a wheelchair? No. LOCOMOTION: WHEELCHAIR - SCORE: 6-RAAD COMPREHENSION: COMPREHENSION: TYPE: Both COMPREHENSION - STEP 1: Does the patient require help from a person or device, or need extra time to understand complex and a bstract ideas (such as current events, finances, discharge planning, medical issues, relationships, e tc)? No. COMPREHENSION - STEP 2: Does the patient need extra time, require an assistive device (such as glasses for visual comprehensi on or a hearing aid for auditory comprehension) or does s/he have mild difficulty understanding compl ex and abstract information? Yes. COMPREHENSION - SCORE: 6-RAAD EXPRESSION EXPRESSION: TYPE: Both EXPRESSION - STEP 1: Does the patient require help from a person or device, or need extra time expressing complex and abst ract ideas (such as current events, finances, discharge planning, medical issues, relationships, etc) ? No. EXPRESSION - STEP 2: Does the patient need extra time, require an assistive device (such as augmentive communication syste m or a communication board), OR does s/he have mild difficulty expressing complex and abstract ideas (including mild dysarthria or mild word-find problems)? Yes. EXPRESSION - SCORE: 6-RAAD SOCIAL INTERACTION: SOCIAL INTERACTION - STEP 1: Does the patient require a helper to interact with others in social and therapeutic situations? No. SOCIAL INTERACTION - STEP 2: Does the patient need extra time in social situations, OR does s/he interact with staff, other patien ts, and family members ONLY in structured environments, OR does s/he require medication for social in teraction? Yes, patient needs extra time SOCIAL INTERACTION - SCORE: 6-RAAD PROBLEM SOLVING: PROBLEM SOLVING - STEP 1: Does the patient need help from a person or device, or need extra time to solve complex problems such as managing a checking account or confronting interpersonal problems? No. PROBLEM SOLVING - STEP 2: Does the patient require extra time to make decisions or solve problems, OR does s/he have slight dif ficulty reading, initiating, or self-correcting in unfamiliar situations? Yes, patient needs extra ti me. PROBLEM SOLVING - SCORE: 6-RAAD MEMORY: MEMORY - STEP 1: Does the patient need help from a person or device, or need extra time to remember frequently encount ered people, daily routines, and executing requests? No. MEMORY - STEP 2: Does the patient have slight difficulty recognizing frequently encountered people, daily routines, or executing requests without the need for repetition or using self-initiated or environmental cues to remember? Yes. MEMORY - SCORE: 6-RAAD SIGNATURE PANEL: The following modified sections: Eating - Score, Grooming - Score, Bathing - Score, Dressing - Upper Body - Score, Dressing - Lower Body - Score, Toileting - Score, Bladder Management - Score, Bowel Man agement - Score, Transfers: Bed, Chair, Wheelchair - Score, Transfers: Toilet - Score, Transfers: Aiyana wer - Score, Transfers: Tub - Score, Locomotion: Walk - Score, Locomotion: Wheelchair - Score, Compre hension - Score, Expression - Score, Social Interaction - Score, Problem Solving - Score, Memory - Sc ore were [electronically] signed by Anna Winston C.N.A. on ThuAug 19 2018 13:21:34 T-0600 (Centra l Standard Time)
[2018-08-19] MEDS: ATORVASTATIN 80 MG TAB PO SCH (20:40)
--- NOTE | 2018-08-20 01:39 | FAST ---
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 Juan Jones M.D. ADMISSION DIAGNOSIS: - Stroke 01 - Right Body (Left Brain) (.2) 22x4 millimeter acute infarction involving the right basal ganglia extending into the right liang ra diata and right periventricular white matter. EATING: Activity did not occur on this shift EATING - SCORE: 0-UNK GROOMING: Wash, rinse, and dry hands GROOMING - STEP 1: Does the patient require the assistance of a person or device, or need extra time when grooming? Yes. GROOMING - STEP 2: Does the patient require the assistance of a helper? No. The patient only requires an assistive devic e, OR takes more than reasonable time to groom, OR there is a concern for safety as the patient groom s GROOMING - SCORE: 6-RAAD BATHING: Activity did not occur on this shift BATHING - SCORE: 0-UNK DRESSING - UPPER BODY: Patient is not dressing in public clothing ARTICLES SCORE Total number of steps: 0 DRESSING - UPPER BODY - SCORE: 0-UNK DRESSING - LOWER BODY: Patient is not dressing in public clothing ARTICLES SCORE Total number of steps: 0 DRESSING - LOWER BODY - SCORE: 0-UNK TOILETING: TOILETING - STEP 1: Does the patient require the assistance of a person or device, or need extra time with toileting? Yes . TOILETING - STEP 2: Does the patient require the assistance of a helper? No. TOILETING - SCORE: 6-RAAD BLADDER MANAGEMENT: BLADDER MANAGEMENT - STEP 1: Does the patient control the bladder completely and intentionally without equipment or devices or med ications, and is always continent? Yes. BLADDER MANAGEMENT - SCORE: 7-IND BOWEL MANAGEMENT: Activity did not occur on this shift BOWEL MANAGEMENT - SCORE: 7-IND TRANSFERS: BED, CHAIR, WHEELCHAIR: TRANSFERS: BED, CHAIR, WHEELCHAIR - STEP 1: Does the patient require assistance of a person or device, or need extra time with bed, chair, or whe elchair transfers? Yes. TRANSFERS: BED, CHAIR, WHEELCHAIR - STEP 2: Does the patient require the assistance of a helper? Yes. TRANSFERS: BED, CHAIR, WHEELCHAIR - STEP 3: How much assistance does the patient require from the helper? Only supervision TRANSFERS: BED, CHAIR, WHEELCHAIR - SCORE: 5-SUP TRANSFERS: TOILET: TRANSFERS: TOILET - STEP 1: Does the patient require the assistance of a person or device, or need extra time with toilet transfe rs? Yes. TRANSFERS: TOILET - STEP 2: Does the patient require the assistance of a helper? No. Patient only requires an assistive device russ ch as a grab bar or special seat, OR s/he takes more than reasonable time to perform toilet transfers , OR there is a safety concern when s/he performs toilet transfers. TRANSFERS: TOILET - SCORE: 6-ARAD TRANSFERS: SHOWER: Activity did not occur on this shift TRANSFERS: SHOWER - SCORE: 0-UNK TRANSFERS: TUB: Activity did not occur on this shift TRANSFERS: TUB - SCORE: 0-UNK LOCOMOTION: WALK: Activity did not occur on this shift LOCOMOTION: WALK - SCORE: 0-UNK LOCOMOTION: WHEELCHAIR: Activity did not occur on this shift LOCOMOTION: WHEELCHAIR - SCORE: 0-UNK COMPREHENSION: COMPREHENSION: TYPE: Both COMPREHENSION - STEP 1: Does the patient require help from a person or device, or need extra time to understand complex and a bstract ideas (such as current events, finances, discharge planning, medical issues, relationships, e tc)? No. COMPREHENSION - STEP 2: Does the patient need extra time, require an assistive device (such as glasses for visual comprehensi on or a hearing aid for auditory comprehension) or does s/he have mild difficulty understanding compl ex and abstract information? Yes. COMPREHENSION - SCORE: 6-RAAD EXPRESSION EXPRESSION: TYPE: Both EXPRESSION - STEP 1: Does the patient require help from a person or device, or need extra time expressing complex and abst ract ideas (such as current events, finances, discharge planning, medical issues, relationships, etc) ? No. EXPRESSION - STEP 2: Does the patient need extra time, require an assistive device (such as augmentive communication syste m or a communication board), OR does s/he have mild difficulty expressing complex and abstract ideas (including mild dysarthria or mild word-find problems)? No. EXPRESSION - SCORE: 7-IND SOCIAL INTERACTION: SOCIAL INTERACTION - STEP 1: Does the patient require a helper to interact with others in social and therapeutic situations? No. SOCIAL INTERACTION - STEP 2: Does the patient need extra time in social situations, OR does s/he interact with staff, other patien ts, and family members ONLY in structured environments, OR does s/he require medication for social in teraction? No. SOCIAL INTERACTION - SCORE: 7-IND PROBLEM SOLVING: PROBLEM SOLVING - STEP 1: Does the patient need help from a person or device, or need extra time to solve complex problems such as managing a checking account or confronting interpersonal problems? No. PROBLEM SOLVING - STEP 2: Does the patient require extra time to make decisions or solve problems, OR does s/he have slight dif ficulty reading, initiating, or self-correcting in unfamiliar situations? Yes, patient needs extra ti me. PROBLEM SOLVING - SCORE: 6-RAAD MEMORY: MEMORY - STEP 1: Does the patient need help from a person or device, or need extra time to remember frequently encount ered people, daily routines, and executing requests? No. MEMORY - STEP 2: Does the patient have slight difficulty recognizing frequently encountered people, daily routines, or executing requests without the need for repetition or using self-initiated or environmental cues to remember? No. MEMORY - SCORE: 7-IND SIGNATURE PANEL: The following modified sections: Eating - Score, Grooming - Score, Dressing - Upper Body - Score, Carlos ssing - Lower Body - Score, Toileting - Score, Bladder Management - Score, Bowel Management - Score, Transfers: Bed, Chair, Wheelchair - Score, Transfers: Toilet - Score, Transfers: Shower - Score, Silverio sfers: Tub - Score, Locomotion: Walk - Score, Locomotion: Wheelchair - Score, Comprehension - Score, Expression - Score, Social Interaction - Score, Problem Solving - Score, Memory - Score were [electro nically] signed by Frances Álvarez CNA on ThuAug 20 2018 01:37:59 GMT-0600 (Central Standard Time)
[2018-08-20] MEDS: TRAMADOL HCL 50 MG TAB PO PRN (03:52)
[2018-08-20] MEDS: LIDOCAINE 5% PATCH TOP SCH (08:00)
[2018-08-20] MEDS: AMLODIPINE 2.5 MG TAB PO SCH (08:04)
[2018-08-20] MEDS: THIAMINE HCL 100 MG TABLET PO SCH (08:04)
[2018-08-20] MEDS: predniSONE 10 MG TAB PO SCH (08:04)
[2018-08-20] MEDS: MULTIVITAMIN TAB PO SCH (08:04)
[2018-08-20] MEDS: FOLIC ACID 1 MG TABLET PO SCH (08:05)
[2018-08-20] MEDS: APIXABAN 2.5 MG TABLET PO SCH (08:05)
[2018-08-20] MEDS: FAMOTIDINE 20 MG TAB PO SCH (08:05)
--- NOTE | 2018-08-20 09:24 | FAST ---
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 Juan Jones M.D. ADMISSION DIAGNOSIS: - Stroke 01 - Right Body (Left Brain) (.2) 22x4 millimeter acute infarction involving the right basal ganglia extending into the right liang ra diata and right periventricular white matter. EATING: EATING - STEP 1: Does the patient require the assistance of a person or device, or need extra time when eating? No. EATING - SCORE: 7-IND GROOMING: GROOMING - STEP 1: Does the patient require the assistance of a person or device, or need extra time when grooming? No. GROOMING - SCORE: 7-IND BATHING: Activity did not occur on this shift BATHING - SCORE: 0-UNK DRESSING - UPPER BODY: ARTICLES SCORE Total number of steps: 0 DRESSING - UPPER BODY - STEP 1: Does the patient require help from a person or device, or need extra time when dressing above the bianca st? Yes. DRESSING - UPPER BODY - STEP 2: Does the patient require the assistance of a helper? No. Patient only requires an assistive device, s uch as a button hook, velcro, or adding machine servicer. OR s/he takes more than reasonable time as s/he dresses the upper body. OR there is a concern for safety when s/he dresses the upper body DRESSING - UPPER BODY - SCORE: 6-RAAD DRESSING - LOWER BODY: ARTICLES SCORE Total number of steps: 0 DRESSING - LOWER BODY - STEP 1: Does the patient require help from a person or device, or need extra time when dressing below the bianca st? Yes. DRESSING - LOWER BODY - STEP 2: Does the patient require the assistance of a helper? No. Patient requires an assistive device such as a adding machine servicer. OR s/he takes more than reasonable time as s/he dresses the lower body, OR there is a con cern for safety when s/he dresses the lower body DRESSING - LOWER BODY - SCORE: 6-RAAD TOILETING: TOILETING - STEP 1: Does the patient require the assistance of a person or device, or need extra time with toileting? Yes . TOILETING - STEP 2: Does the patient require the assistance of a helper? No. TOILETING - SCORE: 6-RAAD BLADDER MANAGEMENT: BLADDER MANAGEMENT - STEP 1: Does the patient control the bladder completely and intentionally without equipment or devices or med ications, and is always continent? Yes. BLADDER MANAGEMENT - SCORE: 7-IND BLADDER MANAGEMENT - FREQUENCY OF ACCIDENTS: BLADDER MANAGEMENT(FA) - STEP 1: How many accidents has the patient had during the current shift? 0 BOWEL MANAGEMENT: BOWEL MANAGEMENT - STEP 1: Does the patient control bowels completely and intentionally without equipment devices or medications AND is always continent? Yes. BOWEL MANAGEMENT - SCORE: 7-IND BOWEL MANAGEMENT - FREQUENCY OF ACCIDENTS: BOWEL MANAGEMENT(FA) - STEP 1: How many accidents has the patient had during the current shift? 0 TRANSFERS: BED, CHAIR, WHEELCHAIR: TRANSFERS: BED, CHAIR, WHEELCHAIR - STEP 1: Does the patient require assistance of a person or device, or need extra time with bed, chair, or whe elchair transfers? Yes. TRANSFERS: BED, CHAIR, WHEELCHAIR - STEP 2: Does the patient require the assistance of a helper? No. Patient only requires an assistive device fo r bed, chair, wheelchair transfers such as a sliding board, grab bar, or brace, OR s/he takes more th an reasonable time, OR there is a safety concern when s/he performs the transfers TRANSFERS: BED, CHAIR, WHEELCHAIR - SCORE: 6-RAAD TRANSFERS: TOILET: TRANSFERS: TOILET - STEP 1: Does the patient require the assistance of a person or device, or need extra time with toilet transfe rs? Yes. TRANSFERS: TOILET - STEP 2: Does the patient require the assistance of a helper? No. Patient only requires an assistive device russ ch as a grab bar or special seat, OR s/he takes more than reasonable time to perform toilet transfers , OR there is a safety concern when s/he performs toilet transfers. TRANSFERS: TOILET - SCORE: 6-RAAD TRANSFERS: SHOWER: Activity did not occur on this shift TRANSFERS: SHOWER - SCORE: 0-UNK TRANSFERS: TUB: Activity did not occur on this shift TRANSFERS: TUB - SCORE: 0-UNK LOCOMOTION: WALK: Activity did not occur on this shift LOCOMOTION: WALK - SCORE: 0-UNK LOCOMOTION: WHEELCHAIR: Activity did not occur on this shift LOCOMOTION: WHEELCHAIR - SCORE: 0-UNK COMPREHENSION: COMPREHENSION - SCORE: 0-UNK EXPRESSION EXPRESSION - SCORE: 0-UNK SOCIAL INTERACTION: SOCIAL INTERACTION - SCORE: 0-UNK PROBLEM SOLVING: PROBLEM SOLVING - SCORE: 0-UNK MEMORY: MEMORY - SCORE: 0-UNK SIGNATURE PANEL: The following modified sections: Eating - Score, Grooming - Score, Bathing - Score, Dressing - Upper Body - Score, Dressing - Lower Body - Score, Toileting - Score, Bladder Management - Score, Bowel Man agement - Score, Transfers: Bed, Chair, Wheelchair - Score, Transfers: Toilet - Score, Transfers: Aiyana wer - Score, Transfers: Tub - Score, Locomotion: Walk - Score, Locomotion: Wheelchair - Score, Compre hension - Score, Expression - Score, Social Interaction - Score, Problem Solving - Score, Memory - Sc ore were [electronically] signed by Cally Mohamud CNA on ThuAug 20 2018 09:23:30 GMT-0600 (Cent[facility] Standard Time)
--- NOTE | 2018-08-20 09:29 | P.RH.PN ---
Estimated Length of Stay: 7 Expected Discharge Date: 08/20/18 Discharge Disposition Plan: Home Family Support: Yes [employer] Goal: Mobility, Transfers, Self Care Vital Signs: Last Vital Signs Temp 97.8 F 08/20/18 06:55 Pulse 88 08/20/18 08:04 Resp 18 08/20/18 06:55 BP 126/64 08/20/18 08:04 Pulse Ox 98 08/20/18 06:55 Laboratory: Laboratory Last Values WBC 7.8 K/uL (4.3-10.9) D 08/19/18 06:10 RBC 3.88 M/uL (4.33-5.43) L 08/19/18 06:10 Hgb 12.9 g/dL (13.6-17.9) L 08/19/18 06:10 Hct 36.7 % (39.6-49.0) L 08/19/18 06:10 MCV 94.6 fL (80-100) 08/19/18 06:10 MCH 33.2 pg (27.0-35.0) 08/19/18 06:10 MCHC 35.1 g/dL (32.0-36.0) 08/19/18 06:10 RDW 13.3 % (12.1-15.2) 08/19/18 06:10 Plt Count 324 K/uL (152-406) D 08/19/18 06:10 MPV 7.9 fL (7.6-11.3) 08/19/18 06:10 Neutrophils % 61.7 % (41.7-73.7) 08/19/18 06:10 Lymphocytes % 17.5 % (15.3-44.8) 08/19/18 06:10 Monocytes % 14.5 % (3.3-12.3) H 08/19/18 06:10 Eosinophils % 5.2 % (0-4.4) H 08/19/18 06:10 Basophils % 1.1 % (0-1.3) 08/19/18 06:10 Absolute Neutrophils 4.8 K/uL (1.8-8.0) 08/19/18 06:10 Absolute Lymphocytes 1.4 K/uL (0.7-4.9) 08/19/18 06:10 Absolute Monocytes 1.1 K/uL (0.1-1.3) 08/19/18 06:10 Absolute Eosinophils 0.4 K/uL (0-0.5) 08/19/18 06:10 Absolute Basophils 0.1 K/uL (0-0.5) 08/19/18 06:10 Sodium 138 mmol/L (136-145) 08/19/18 06:10 Potassium 4.1 mmol/L (3.5-5.1) 08/19/18 06:10 Chloride 102 mmol/L (98-107) 08/19/18 06:10 Carbon Dioxide 31 mmol/L (21-32) 08/19/18 06:10 BUN 14 mg/dL (7-18) 08/19/18 06:10 Creatinine 1.03 mg/dL (0.55-1.3) 08/19/18 06:10 Estimated GFR > 90 mL/min (=/>90) 08/19/18 06:10 Glucose 106 mg/dL (74-106) 08/19/18 06:10 Uric Acid 6.8 mg/dL (3.5-7.2) 08/19/18 06:10 Calcium 8.8 mg/dL (8.5-10.1) 08/19/18 06:10 Magnesium 1.8 mg/dL (1.8-2.4) 08/19/18 06:10 Total Bilirubin 0.2 mg/dL (0.2-1.0) 08/17/18 15:52 Direct Bilirubin < 0.1 mg/dL (0-0.2) 08/17/18 15:52 AST 41 U/L (15-37) H 08/17/18 15:52 ALT 47 U/L (12-78) 08/17/18 15:52 Alkaline Phosphatase 77 U/L (45-117) 08/17/18 15:52 Serum Total Protein 8.7 g/dL (6.4-8.2) H 08/17/18 15:52 Albumin 3.1 g/dL (3.4-5.0) L 08/19/18 06:10 Globulin 5.0 g/dL (2.3-3.5) H 08/17/18 15:52 Albumin/Globulin Ratio 0.7 (1.1-1.8) L 08/17/18 15:52 Prealbumin 22.0 mg/dL (20-40) 08/19/18 06:10 Urine Color Yellow 08/13/18 18:35 Urine Appearance Clear 08/13/18 18:35 Urine pH 6.0 (5.0-7.0) 08/13/18 18:35 Ur Specific [place] 1.015 (1.005-1.030) 08/13/18 18:35 Urine Ketones Negative (NEG) 08/13/18 18:35 Urine Blood Negative (NEG) 08/13/18 18:35 Urine Nitrite Negative (NEG) 08/13/18 18:35 Urine Bilirubin Negative (NEG) 08/13/18 18:35 Urine Urobilinogen 0.2 mg/dL (0.2-1.0) 08/13/18 18:35 Ur Leukocyte Esterase Negative (NEG) 08/13/18 18:35 Urine RBC <5 /HPF (NONE SEEN) 08/13/18 18:35 Urine WBC <5 /HPF (<5) 08/13/18 18:35 Ur Squamous Epith Cells <5 /HPF (NONE SEEN) 08/13/18 18:35 Urine Bacteria <20 /HPF (NONE SEEN) 08/13/18 18:35 Urine Culture Reflexed Not needed 08/13/18 18:35 Urine Glucose Negative (NEG) 08/13/18 18:35 Urine Total Protein 1+ (NEG) H 08/13/18 18:35 Weight: 140 lb 8 oz Wound Present: No Closed Surgical Incision Present: No Negative Pressure Wound Therapy Present: No Physician Update: His labs have been reviewed and are stable. His right knee swelling and pain improved significantly with ice and oral steroids. He is modified independent with his physical and occupational therapy. He will be discharged home today with outpatient physical therapy. Pain Issues: Tramadol 50mg Q4H PRN. Lidoderm patch 5% Daily Summary: Patient's care plan and [facility] goals have been reviewed and revised as necessary. Please see the Rehabilitation Signature page for all necessary signatures.
--- NOTE | 2018-08-20 15:39 | FAST ---
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 Juan Jones M.D. ADMISSION DIAGNOSIS: - Stroke 01 - Right Body (Left Brain) (.2) 22x4 millimeter acute infarction involving the right basal ganglia extending into the right liang ra diata and right periventricular white matter. EATING: Activity did not occur on this shift EATING - SCORE: 0-UNK GROOMING: Wash, rinse, and dry face Wash, rinse, and dry hands GROOMING - STEP 1: Does the patient require the assistance of a person or device, or need extra time when grooming? No. GROOMING - SCORE: 7-IND BATHING: Abdomen Buttocks Chest Left arm Left lower leg and foot Left upper leg Perineal area Right arm Right lower leg and foot Right upper leg BATHING - STEP 1: Does the patient require the assistance of a person or device, or need extra time when bathing? No. BATHING - SCORE: 7-IND DRESSING - UPPER BODY: T-shirt/pullover shirt (four steps) ARTICLES SCORE Total number of steps: 4 DRESSING - UPPER BODY - STEP 1: Does the patient require help from a person or device, or need extra time when dressing above the bianca st? No. DRESSING - UPPER BODY - SCORE: 7-IND DRESSING - LOWER BODY: Elastic waist pants (three steps) Sock - Left foot (one step) Sock - Right foot (one step) Tied or buckled shoe - Left foot (two steps) Tied or buckled shoe - Right foot (two steps) Underwear (three steps) ARTICLES SCORE Total number of steps: 12 DRESSING - LOWER BODY - STEP 1: Does the patient require help from a person or device, or need extra time when dressing below the bianca st? Yes. DRESSING - LOWER BODY - STEP 2: Does the patient require the assistance of a helper? No. Patient requires an assistive device such as a print color operator. OR s/he takes more than reasonable time as s/he dresses the lower body, OR there is a con cern for safety when s/he dresses the lower body DRESSING - LOWER BODY - SCORE: 6-RAAD TOILETING: Activity did not occur on this shift TOILETING - SCORE: 0-UNK BLADDER MANAGEMENT: Activity did not occur on this shift BLADDER MANAGEMENT - SCORE: 7-IND BOWEL MANAGEMENT: Activity did not occur on this shift BOWEL MANAGEMENT - SCORE: 7-IND TRANSFERS: BED, CHAIR, WHEELCHAIR: Activity did not occur on this shift TRANSFERS: BED, CHAIR, WHEELCHAIR - SCORE: 0-UNK TRANSFERS: TOILET: Activity did not occur on this shift TRANSFERS: TOILET - SCORE: 0-UNK TRANSFERS: SHOWER: TRANSFERS: SHOWER - STEP 1: Does the patient require the assistance of a person or device, or need extra time with shower transfe rs? Yes. TRANSFERS: SHOWER - STEP 2: Does the patient require the assistance of a helper? No. The patient only uses an assistive device, t akes more than reasonable time, OR there is a concern for safety when s/he performs transfers. TRANSFERS: SHOWER - SCORE: 6-RAAD TRANSFERS: TUB: Activity did not occur on this shift TRANSFERS: TUB - SCORE: 0-UNK LOCOMOTION: WALK: Activity did not occur on this shift LOCOMOTION: WALK - SCORE: 0-UNK LOCOMOTION: WHEELCHAIR: Activity did not occur on this shift LOCOMOTION: WHEELCHAIR - SCORE: 0-UNK LOCOMOTION: STAIRS: Activity did not occur on this shift LOCOMOTION: STAIRS - SCORE: 0-UNK COMPREHENSION: COMPREHENSION: TYPE: Visual COMPREHENSION - STEP 1: Does the patient require help from a person or device, or need extra time to understand complex and a bstract ideas (such as current events, finances, discharge planning, medical issues, relationships, e tc)? No. COMPREHENSION - STEP 2: Does the patient need extra time, require an assistive device (such as glasses for visual comprehensi on or a hearing aid for auditory comprehension) or does s/he have mild difficulty understanding compl ex and abstract information? No. COMPREHENSION - SCORE: 7-IND EXPRESSION EXPRESSION: TYPE: Non-Vocal EXPRESSION - STEP 1: Does the patient require help from a person or device, or need extra time expressing complex and abst ract ideas (such as current events, finances, discharge planning, medical issues, relationships, etc) ? No. EXPRESSION - STEP 2: Does the patient need extra time, require an assistive device (such as augmentive communication syste m or a communication board), OR does s/he have mild difficulty expressing complex and abstract ideas (including mild dysarthria or mild word-find problems)? No. EXPRESSION - SCORE: 7-IND SOCIAL INTERACTION: SOCIAL INTERACTION - STEP 1: Does the patient require a helper to interact with others in social and therapeutic situations? No. SOCIAL INTERACTION - STEP 2: Does the patient need extra time in social situations, OR does s/he interact with staff, other patien ts, and family members ONLY in structured environments, OR does s/he require medication for social in teraction? No. SOCIAL INTERACTION - SCORE: 7-IND PROBLEM SOLVING: PROBLEM SOLVING - STEP 1: Does the patient need help from a person or device, or need extra time to solve complex problems such as managing a checking account or confronting interpersonal problems? No. PROBLEM SOLVING - STEP 2: Does the patient require extra time to make decisions or solve problems, OR does s/he have slight dif ficulty reading, initiating, or self-correcting in unfamiliar situations? No. PROBLEM SOLVING - SCORE: 7-IND MEMORY: MEMORY - STEP 1: Does the patient need help from a person or device, or need extra time to remember frequently encount ered people, daily routines, and executing requests? No. MEMORY - STEP 2: Does the patient have slight difficulty recognizing frequently encountered people, daily routines, or executing requests without the need for repetition or using self-initiated or environmental cues to remember? No. MEMORY - SCORE: 7-IND SIGNATURE PANEL: The following modified sections: Eating - Score, Grooming - Score, Bathing - Score, Dressing - Upper Body - Score, Dressing - Lower Body - Score, Toileting - Score, Transfers: Bed, Chair, Wheelchair - S core, Transfers: Toilet - Score, Transfers: Shower - Score, Transfers: Tub - Score, Comprehension - S core, Expression - Score, Social Interaction - Score, Problem Solving - Score, Memory - Score were [e lectronically] signed by NYDIA Roldan on ThuAug 20 2018 15:38:24 GMT-0600 ([place] Time)
--- NOTE | 2018-08-20 16:28 | FAST ---
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 Juan Jones M.D. ADMISSION DIAGNOSIS: - Stroke 01 - Right Body (Left Brain) (01.2) 22x4 millimeter acute infarction involving the right basal ganglia extending into the right liang ra diata and right periventricular white matter. EATING: Activity did not occur on this shift EATING - SCORE: 0-UNK GROOMING: Activity did not occur on this shift GROOMING - SCORE: 0-UNK BATHING: Activity did not occur on this shift BATHING - SCORE: 0-UNK DRESSING - UPPER BODY: Activity did not occur on this shift Patient is not dressing in public clothing ARTICLES SCORE Total number of steps: 0 DRESSING - UPPER BODY - SCORE: 0-UNK DRESSING - LOWER BODY: Activity did not occur on this shift Patient is not dressing in public clothing ARTICLES SCORE Total number of steps: 0 DRESSING - LOWER BODY - SCORE: 0-UNK TOILETING: Activity did not occur on this shift TOILETING - SCORE: 0-UNK BLADDER MANAGEMENT: Activity did not occur on this shift BLADDER MANAGEMENT - SCORE: 7-IND BOWEL MANAGEMENT: Activity did not occur on this shift BOWEL MANAGEMENT - SCORE: 7-IND TRANSFERS: BED, CHAIR, WHEELCHAIR: TRANSFERS: BED, CHAIR, WHEELCHAIR - STEP 1: Does the patient require assistance of a person or device, or need extra time with bed, chair, or whe elchair transfers? Yes. TRANSFERS: BED, CHAIR, WHEELCHAIR - STEP 2: Does the patient require the assistance of a helper? No. Patient only requires an assistive device fo r bed, chair, wheelchair transfers such as a sliding board, grab bar, or brace, OR s/he takes more th an reasonable time, OR there is a safety concern when s/he performs the transfers TRANSFERS: BED, CHAIR, WHEELCHAIR - SCORE: 6-RAAD TRANSFERS: TOILET: Activity did not occur on this shift TRANSFERS: TOILET - SCORE: 0-UNK TRANSFERS: SHOWER: Activity did not occur on this shift TRANSFERS: SHOWER - SCORE: 0-UNK TRANSFERS: TUB: Activity did not occur on this shift TRANSFERS: TUB - SCORE: 0-UNK LOCOMOTION: WALK: LOCOMOTION: WALK - STEP 1: Does the patient need help from a person or device, or need extra time to walk 150 feet? No. LOCOMOTION: WALK - STEP 2: Does the patient need an assistive device (such as an orthosis, prosthesis, crutches, or walker) to g o 150 feet, OR does s/he take more than reasonable time, OR is there a concern for safety? Yes, the p atient needs an assistive device LOCOMOTION: WALK - SCORE: 6-RAAD LOCOMOTION: WHEELCHAIR: Activity did not occur on this shift LOCOMOTION: WHEELCHAIR - SCORE: 0-UNK LOCOMOTION: STAIRS: LOCOMOTION: STAIRS - STEP 1: Does the patient need help to go up and down 12 to 14 stairs? No. LOCOMOTION: STAIRS - STEP 2: Does the patient require an assistive device - such as handrails or cane - to go up and down one flig ht of stairs, OR does s/he take more than reasonable time, OR is there a concern for safety? Yes, the patient requires an assistive device LOCOMOTION: STAIRS - SCORE: 6-RAAD COMPREHENSION: COMPREHENSION - SCORE: 0-UNK EXPRESSION EXPRESSION - SCORE: 0-UNK SOCIAL INTERACTION: SOCIAL INTERACTION - SCORE: 0-UNK PROBLEM SOLVING: PROBLEM SOLVING - SCORE: 0-UNK MEMORY: MEMORY - SCORE: 0-UNK SIGNATURE PANEL: The following modified sections: Transfers: Bed, Chair, Wheelchair - Score, Transfers: Toilet - Score , Locomotion: Walk - Score, Locomotion: Wheelchair - Score, Locomotion: Stairs - Score were [lulú calles] signed by Navin Albert PT on ThuAug 20 2018 16:28:09 GMT-0600 (Central Standard Time)
--- NOTE | 2018-08-23 15:36 | FAST ---
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 Juan Jones M.D. ADMISSION DIAGNOSIS: - Stroke 01 - Right Body (Left Brain) (01.2) 22x4 millimeter acute infarction involving the right basal ganglia extending into the right liang ra diata and right periventricular white matter. EATING: Activity did not occur on this shift EATING - SCORE: 0-UNK GROOMING: Activity did not occur on this shift GROOMING - SCORE: 0-UNK BATHING: Activity did not occur on this shift BATHING - SCORE: 0-UNK DRESSING - UPPER BODY: Activity did not occur on this shift Patient is not dressing in public clothing ARTICLES SCORE Total number of steps: 0 DRESSING - UPPER BODY - SCORE: 0-UNK DRESSING - LOWER BODY: Activity did not occur on this shift Patient is not dressing in public clothing ARTICLES SCORE Total number of steps: 0 DRESSING - LOWER BODY - SCORE: 0-UNK TOILETING: Activity did not occur on this shift TOILETING - SCORE: 0-UNK BLADDER MANAGEMENT: Activity did not occur on this shift BLADDER MANAGEMENT - SCORE: 7-IND BOWEL MANAGEMENT: Activity did not occur on this shift BOWEL MANAGEMENT - SCORE: 7-IND TRANSFERS: BED, CHAIR, WHEELCHAIR: TRANSFERS: BED, CHAIR, WHEELCHAIR - STEP 1: Does the patient require assistance of a person or device, or need extra time with bed, chair, or whe elchair transfers? Yes. TRANSFERS: BED, CHAIR, WHEELCHAIR - STEP 2: Does the patient require the assistance of a helper? No. Patient only requires an assistive device fo r bed, chair, wheelchair transfers such as a sliding board, grab bar, or brace, OR s/he takes more th an reasonable time, OR there is a safety concern when s/he performs the transfers TRANSFERS: BED, CHAIR, WHEELCHAIR - SCORE: 6-RAAD TRANSFERS: TOILET: Activity did not occur on this shift TRANSFERS: TOILET - SCORE: 0-UNK TRANSFERS: SHOWER: Activity did not occur on this shift TRANSFERS: SHOWER - SCORE: 0-UNK TRANSFERS: TUB: Activity did not occur on this shift TRANSFERS: TUB - SCORE: 0-UNK LOCOMOTION: WALK: Activity did not occur on this shift LOCOMOTION: WALK - SCORE: 0-UNK LOCOMOTION: WHEELCHAIR: LOCOMOTION: WHEELCHAIR - STEP 1: Does the patient need help to go 150 feet in a wheelchair? No. LOCOMOTION: WHEELCHAIR - SCORE: 6-RAAD LOCOMOTION: STAIRS: Activity did not occur on this shift LOCOMOTION: STAIRS - SCORE: 0-UNK COMPREHENSION: COMPREHENSION - SCORE: 0-UNK EXPRESSION EXPRESSION - SCORE: 0-UNK SOCIAL INTERACTION: SOCIAL INTERACTION - SCORE: 0-UNK PROBLEM SOLVING: PROBLEM SOLVING - SCORE: 0-UNK MEMORY: MEMORY - SCORE: 0-UNK SIGNATURE PANEL: The following modified sections: Transfers: Bed, Chair, Wheelchair - Score, Transfers: Toilet - Score , Locomotion: Walk - Score, Locomotion: Wheelchair - Score, Locomotion: Stairs - Score were [electron ically] signed by Donaldo Galindo PTA on ThuAug 23 2018 15:36:02 GMT-0600 (Central Standard Time)
--- NOTE | 2018-08-23 15:37 | FAST ---
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 Juan Jones M.D. ADMISSION DIAGNOSIS: - Stroke 01 - Right Body (Left Brain) (01.2) 22x4 millimeter acute infarction involving the right basal ganglia extending into the right liang ra diata and right periventricular white matter. EATING: Activity did not occur on this shift EATING - SCORE: 0-UNK GROOMING: Activity did not occur on this shift GROOMING - SCORE: 0-UNK BATHING: Activity did not occur on this shift BATHING - SCORE: 0-UNK DRESSING - UPPER BODY: Activity did not occur on this shift Patient is not dressing in public clothing ARTICLES SCORE Total number of steps: 0 DRESSING - UPPER BODY - SCORE: 0-UNK DRESSING - LOWER BODY: Activity did not occur on this shift Patient is not dressing in public clothing ARTICLES SCORE Total number of steps: 0 DRESSING - LOWER BODY - SCORE: 0-UNK TOILETING: Activity did not occur on this shift TOILETING - SCORE: 0-UNK BLADDER MANAGEMENT: Activity did not occur on this shift BLADDER MANAGEMENT - SCORE: 7-IND BOWEL MANAGEMENT: Activity did not occur on this shift BOWEL MANAGEMENT - SCORE: 7-IND TRANSFERS: BED, CHAIR, WHEELCHAIR: Activity did not occur on this shift TRANSFERS: BED, CHAIR, WHEELCHAIR - SCORE: 0-UNK TRANSFERS: TOILET: Activity did not occur on this shift TRANSFERS: TOILET - SCORE: 0-UNK TRANSFERS: SHOWER: Activity did not occur on this shift TRANSFERS: SHOWER - SCORE: 0-UNK TRANSFERS: TUB: Activity did not occur on this shift TRANSFERS: TUB - SCORE: 0-UNK LOCOMOTION: WALK: Activity did not occur on this shift LOCOMOTION: WALK - SCORE: 0-UNK LOCOMOTION: WHEELCHAIR: LOCOMOTION: WHEELCHAIR - STEP 1: Does the patient need help to go 150 feet in a wheelchair? No. LOCOMOTION: WHEELCHAIR - SCORE: 6-RAAD LOCOMOTION: STAIRS: Activity did not occur on this shift LOCOMOTION: STAIRS - SCORE: 0-UNK COMPREHENSION: COMPREHENSION - SCORE: 0-UNK EXPRESSION EXPRESSION - SCORE: 0-UNK SOCIAL INTERACTION: SOCIAL INTERACTION - SCORE: 0-UNK PROBLEM SOLVING: PROBLEM SOLVING - SCORE: 0-UNK MEMORY: MEMORY - SCORE: 0-UNK SIGNATURE PANEL: The following modified sections: Transfers: Bed, Chair, Wheelchair - Score, Transfers: Toilet - Score , Locomotion: Walk - Score, Locomotion: Wheelchair - Score, Locomotion: Stairs - Score were [electron ically] signed by Donaldo Galindo PTA on ThuAug 23 2018 15:36:58 GMT-0600 (Central Standard Time)
== END 2018-08-20 15:35 | disposition home or self-care (01) | DRG 57 ==
LOC: 5TH 13:11
PROVIDERS: ADMIT Psychiatry & Neurology Neurology with Special Qualifications in Child Neurology; ATTEND Psychiatry & Neurology Neurology with Special Qualifications in Child Neurology
DX: I69.351 Hemiplegia and hemiparesis following cerebral infarction affecting right dominant side (principal); I10 Essential (primary) hypertension; F10.20 Alcohol dependence, uncomplicated; Z87.891 Personal history of nicotine dependence
CPT/HCPCS: 36415; 80048; 80076; 81001; 82040; 83735; 84134; 84550; 85025; 87086; 87088; 92507; 92523; 97110; 97112; 97116; 97150; 97162; 97166; 97530; 97542; J7512

== ENCOUNTER 2020-05-20 13:42 | Inpatient (IN) | payer SELFPAY ==
--- OUTSIDE RECORDS SUMMARY | 2020-05-20 13:45 | XMS REPORT | Continuity of Care Document ---
:1960 Author Organization [facility] t Address [address] [place] [address] Care Team Providers Name Role Phone Unavailable Unavailable Unavailable Problems This patient has no known problems. Allergies, Adverse Reactions, Alerts Allergy Allergy Status Severity Reaction(s) Onset Inactive Treating Comm ents Source Name Type Date Date Clinician Lisinopr Adverse Active Info Not [facility] Reaction Available [facility] Medications Ordered Filled Start Stop Current Ordering Indication Dosage Frequency Signature Comments Components Source Medication Medication Date Date Medication? Clinician (SIG) Name Name Duloxetine Duloxetine Yes Erasmo [address] [facility] HCl HCl 8-19 Garcia [facility] B-1 B-1 Yes Erasmo [address] [facility] Pepcid Pepcid Yes Erasmo 1 tablet [facility] at bedtime [facility] Aspir-81 Aspir-81 Yes Erasmo [address] Garcia [facility] Tramadol Tramadol Yes Erasmo [address] HCl HCl Garcia as needed [facility] - [facility] Daily Elis Daily Elis Yes Erasmo [address] [facility] Garcia [facility] Amlodipine Amlodipine Yes Erasmo [address] [facility] Besylate Besylate Garcia [facility] Plavix Plavix Yes [facility]asmo [facility] Loratadine Loratadine Yes Erasmo [address] [facility] Garcia [facility] Lipitor Lipitor Yes Erasmo [address] [facility] Procedures This patient has no known procedures. Encounters Start End Encounter Admission Attending Care Care Encounter Source Date/Time Date/Time Type Type Clinicians Facility Department ID 2020-03-29 2020-03-29 Outpatient [facility] [id number] [facility] 2020-03-15 2020-03-15 [facility] [id number] [facility] 08:40:00 08:40:00 t [facility] 2020-02-15 2020-02-15 [facility] [id number] [facility] 09:30:00 09:30:00 t [facility] s [facility] 2019-06-28 2019-06-28 [facility] [id number] [facility] 11:25:00 11:25:00 t [facility] 2019-06-16 2019-06-16 [facility] [id number] 11[facility]27[facility]00 11:27[facility]00 [facility] 2019-06-09 2019-06-09 [facility] [id number] 08[facility]45:00 08:45:00 t [place] [facility] Clin[facility] 2019-04-13 2019-04-13 [facility] [id number] [address] 11:41:00 11:41:00 t [employer] [facility] [employer] [facility] Outpati ent Clinics 2019-02-10 2019-02-10 [facility] [id number] 15:49:00 15:49:00 t [facility] 2019-02-09 2019-02-09 [facility] [id number] [address] 09:26:00 09:26:00 t [facility] 2019-01-27 2019-01-27 Outpatient Cayetano Monteirot [id number] 09:00:00 09:00:00 t [facility] 2019-01-10 2019-01-10 Outpatient Cayetano Monteirot [id number] [address] 13:11:00 13:11:00 t [facility] 2019-01-06 2019-01-06 Outpatient Brazkayli Monteirot [id number] [address] 10:30:00 10:30:00 t [facility] 2018-09-28 2018-09-28 Outpatient Cayetano Monteirot [id number] 08:30:00 08:30:00 t [employer] [facility] Ajaline [facility] ent Clinics Results This patient has no known results.
--- OUTSIDE RECORDS SUMMARY | 2020-05-20 13:45 | XMS REPORT ---
:1960 Author Organization [facility] Address [address] [place], 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 93791796 recent cerebrovascular accident (CVA) Problem Primary M17.11 Active 018202299209180 osteoarthritis of right knee Problem Memory deficit I69.911 Active 636922442 after cerebrovascular disease Problem HTN, goal below I10 Active 65445449 140/90 Problem Moderate dementia F03.90 Active 23707275 without behavioral disturbance Problem Allergic rhinitis J30.9 Active 62684004 Problem Locking of left M23.92 Active 7564885153991812 5 knee Problem Unilateral M17.12 Active 179271019472029 primary osteoarthritis, left knee Problem Unilateral M17.11 Active 838149814401060 primary osteoarthritis, right knee Problem Other sequelae of I69.398 Active 04695711 cerebral infarction ALLERGIES Allergen (clinical drug Drug/Non Drug Allergy Reaction Allergy Type Onset Date Status ingredient) documented on EMR Lisinopril/HCTZ Unknown Drug Allergy Active ENCOUNTERS from 1960 to 2020-04-04 Encounter Location Date Provider Diagnosis [facility] [address] Tian HODGES Mar, Erasmo Garcia Mod erate dementia Family [facility] [address], [place] [address] disturbance F0 3.90 IMMUNIZATIONS No Information SOCIAL HISTORY Tobacco Use: Social History Observation Description Date Details (start date - stop date) Current Smoker Sex Assigned At : Social History Observation Description Sex Assigned At Unknown PHQ9 Question Answer Notes Little interest or pleasure in doing things Several days Feeling down, depressed, or hopeless Several days Trouble falling or staying asleep or sleeping too much More than half the days Feeling tired or having little energy More than half the day s Poor appetite or overeating More than half the days Feeling bad about yourself, or that you are a failure, Sever al days or have let yourself or your family down Trouble concentrating on things, such as reading the Several days newspaper or watching television Moving or speaking so slowly that other people could Not at all have noticed; or the opposite, being so fidgety or restless that you have been moving around a lot more than usual Total Score 10 Interpretation Moderate Depression Thoughts that you would be better off or of Not at all hurting yourself in some way Alcohol Screen Question Answer Notes Did you have a drink containing alcohol in Yes the past year? Points 4 Interpretation Positive How often did you have a drink containing Four or more times a week (4 points) alcohol in the past year? Tobacco Use/Smoking Question Answer Notes Are you a current smoker How many cigarettes a day do you smoke? 11-20 How often do you smoke cigarettes? every day REASON FOR REFERRAL No Information VITAL SIGNS No information MEDICATIONS Medication SIG (Take, Route, Start Date End Date Status Frequency, Duration) Pepcid 20 MG 1 tablet at bedtime Orally A ctive Once a day Daily Elis - 1 tablet Orally Once a day A ctive B-1 100 MG 1 tablet Orally Once a day A ctive Duloxetine HCl 30 MG 1 capsule Orally Once a day Active for 90 days Loratadine 10 MG 1 tablet Orally Once a day Not-Taking Amlodipine Besylate 2.5 MG 1 tablet Orally Once a day Active for 90 days Aspir-81 81 MG 1 tablet Orally Once a day Active Lipitor 10 MG 1 tablet Orally Once a day Active for 90 days Plavix 75 MG 1 tablet Orally Once a day A ctive Tramadol HCl 50 MG 1 tablet as needed for pain Not-Taking Orally every 6 hrs PROCEDURES No Information RESULTS No Results REASON FOR VISIT PT/Neuro for disability MEDICAL (GENERAL) HISTORY Type Description Date Medical History Allergic rhinitis Medical History Tobacco use disorder Medical History Mixed hyperlipidemia Medical History HTN, goal below 140/90 Medical History Alcohol abuse Medical History Ataxia due to recent cerebrovascular acc ident (CVA) Medical History Old cerebellar infarct without late effe ct Medical History hx of stroke Surgical History Appendectomy Goals Section No Information Health Concerns No Information MEDICAL EQUIPMENT No Information MENTAL STATUS No Information FUNCTIONAL STATUS No Information ASSESSMENTS Encounter Date Diagnosis Notes Mar, Moderate dementia without behavioral dis turbance (ICD-10 - F03.90) PLAN OF TREATMENT Medication Medication Name Sig Start Date Stop Date Pepcid 20 MG 1 tablet at bedtime Orally Once a day Lipitor 10 MG 1 tablet Orally Once a day for 90 days Plavix 75 MG 1 tablet Orally Once a day Aspir-81 81 MG 1 tablet Orally Once a day Amlodipine Besylate 2.5 MG 1 tablet Orally Once a day for 90 days Duloxetine HCl 30 MG 1 capsule Orally Once a day for 90 days B-1 100 MG 1 tablet Orally Once a day Daily Elis - 1 tablet Orally Once a day Next Appt Details Provider Name:Erasmo Garcia, 2020-06-14 0 8:30:00 AM, [address], [address], [place], [address],
--- OUTSIDE RECORDS SUMMARY | 2020-05-20 13:45 | XMS REPORT ---
:1960 Author Organization [employer] Care Team Providers Name Role Phone Jose Erasmo Provider Role Unavailable Allergies, Adverse Reactions, Alerts Substance Reaction Event Type Lisinopril/HCTZ Info Not Available Drug Allergy Problems Problem Type Condition Code Onset Dates Condition Statu s Assessment Other sequelae of cerebral I69.398 A ctive infarction Assessment Noncompliance w/medication Z91.14 A ctive treatment due to intermit use of medication Problem Mixed hyperlipidemia E78.2 Active Assessment Old cerebellar infarct without late Z86.73 Active effect Problem Alcohol abuse F10.10 Active Assessment Alcohol abuse F10.10 Active Problem Allergic rhinitis J30.9 Active Problem Old cerebellar infarct without late Z86.73 Active effect Problem HTN, goal below 140/90 I10 Activ e Problem Memory deficit after I69.911 Active cerebrovascular disease Problem Unilateral primary osteoarthritis, M17.11 Active right knee Assessment Mixed hyperlipidemia E78.2 Active Assessment Tobacco abuse Z72.0 Active Problem Other sequelae of cerebral I69.398 A ctive infarction Assessment Elevated serum protein level R77.9 Active Problem Primary osteoarthritis of right M17.11 Active knee Problem Ataxia due to recent I69.393 Active cerebrovascular accident (CVA) Problem Unilateral primary osteoarthritis, M17.12 Active left knee Problem Locking of left knee M23.92 Active Assessment 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 Assessment Locking of left knee M23.92 Active Assessment HTN, goal below 140/90 I10 Activ e Assessment Ataxia due to recent I69.393 Active cerebrovascular accident (CVA) Problem Tobacco use disorder F17.200 Active Assessment Memory deficit after I69.911 Active cerebrovascular disease Assessment Primary osteoarthritis of right M17.11 Active knee Medications Medication Code Code Instructions Start End Status Dosage System Date Date B- [facility] 42252975158 100 MG Orally Active 1 tabl et Once a day Daily Elis [facility] 55464095742 - Orally Once a Active 1 tablet day Loratadine [facility] 60657636301 10 MG Orally Active 1 ta blet Once a day Plavix NDC 06717454065 75 MG Orally Active 1 table t Once a day Tramadol HCl [facility] 31019742572 50 MG Orally Active 1 tablet every 6 hrs as needed for pain Pepcid [facility] 70537641895 20 MG Orally Active 1 table t Once a day at bedtime Duloxetine HCl [facility] 76528097443 30 MG Orally Active 1 capsule Once a day Amlodipine [facility] 18165591453 2.5 MG Orally Active 1 t ablet Besylate Once a day Aspir-81 [facility] 89233101045 81 MG Orally Active 1 tabl et Once a day Lipitor [facility] 40084655093 10 MG Orally Active 1 table t Once a day Results No Known Results Summary Purpose [employer] Submission
[2020-05-20] MEDS ORDERED: FOLIC ACID 5 MG/ML VIAL ONE (14:21)
[2020-05-20] MEDS ORDERED: ASPIRIN 325 MG TAB ONE (14:21)
[2020-05-20 14:28] LABS: Absolute Lymphocytes (CBC) 1.3 K/uL (0.7-4.9); Basophils % 1.2 % (0-1.3); Hematocrit 47.9 % (39.6-49.0); MPV 8.4 fL (7.6-11.3)
[2020-05-20 14:38] LABS: Protime INR 0.98
[2020-05-20 14:46] LABS: Potassium 3.3 mmol/L (3.5-5.1)
--- NOTE | 2020-05-20 14:54 | RAD REPORT ---
EXAM DESCRIPTION: CT - Head Brain Wo Cont - 05/20/2020 2:37 pm CLINICAL HISTORY: Right leg weakness Headache, drowsiness COMPARISON: Ct Stroke Brain Wo Cont dated 08/05/2018 TECHNIQUE: All CT scans are performed using dose optimization technique as appropriate and may inclu de automated exposure control or mA/KV adjustment according to patient size. FINDINGS: No intracranial hemorrhage, hydrocephalus or extra-axial fluid collection.Old infarction c hanges are seen in the periventricular white matter bilaterally.No areas of brain edema or evidence o f midline shift. Moderate mucous retention cyst or polyp in the left maxillary antrum noted. The paranasal sinuses mas toids are otherwise clear. The calvarium is intact. IMPRESSION: No acute intracranial abnormality. Multiple old infarcts are seen in the periventricula r white matter bilaterally. MRI brain could be obtained if further assessment for acute CVA is clinically desired.
--- NOTE | 2020-05-20 15:04 | RAD REPORT ---
EXAM DESCRIPTION: RAD - Chest Single View - 05/20/2020 2:52 pm CLINICAL HISTORY: Right leg weakness Chest pain. COMPARISON: Chest Pa And Lat (2 Views) dated 08/05/2018 FINDINGS: Portable technique limits examination quality. The lungs are grossly clear. The heart is normal in size. No displaced fractures. IMPRESSION: No acute intrathoracic process suspected.
--- NOTE | 2020-05-20 15:05 | EDPHYS ---
Physician Documentation [facility] Name: Binh Parsons Age: 59 yrs Sex: Male : 1960 Arrival Date: 05/20/2020 Time: 13:46 Bed 20 Private MD: ED Physician Georgi Darby HPI: 05/20 13:54 This 59 yrs old Black Male presents to ER via EMS with complaints of General Weakness, pm1 Unable to walk. 13:54 The patient presents to the emergency department with weakness of the right lower pm1 extremity, difficult walking, Right leg is weak and unable to move it. Onset: The symptoms/episode began/occurred Thursday night. Context: occurred at home, occurred while the patient was watching TV. Associated signs and symptoms: The patient has no apparent associated signs or symptoms, Pertinent negatives: fever, headache, seizure, numbness, tingling, back pain, incontinence . Severity of symptoms: in the emergency department the symptoms are unchanged. Patient's baseline: Neuro: alert and fully oriented, Motor: no deficits, Ambulation: walks without assistance, The patient has a previous history of CVA. Current symptoms: weakness to legs and inability to walk. The patient has experienced a previous episode, and the symptoms today are exactly the same, except right side weaker than left this time, stroke Jul 2018. Patient was watching TV on Thursday night sitting on his recliner. He wanted to get up to urinate but he couldn't moves his legs to get up. He feels generally weak, but his right leg is weaker than his left. Patient had a CVA Jul 2018 with the same presentation except his left leg was weaker than his right at that time. He does not have any other complaints than the leg weakness and inability to walk. After his stroke in 2019 he was able to ambulate. 13:54 Left leg with a limp with walking and some weakness after stroke, and a little unsteady pm1 but he did not use a walker per . Historical: - Allergies: 13:48 No Known Allergies; sv - PMHx: 13:48 Hypertension; CVA; sv - PSHx: 13:48 None; sv - Immunization history:: Adult Immunizations up to date. - Social history:: Smoking status: Patient denies any tobacco usage or history of. ROS: 13:54 Constitutional: Negative for fever, chills, and weight loss. pm1 13:54 Eyes: Negative for injury, pain, redness, and discharge, ENT: Negative for injury, pm1 pain, and discharge, Neck: Negative for injury, pain, and swelling, Cardiovascular: Negative for chest pain, palpitations, and edema, Respiratory: Negative for shortness of breath, cough, wheezing, and pleuritic chest pain, Abdomen/GI: Negative for abdominal pain, nausea, vomiting, diarrhea, and constipation, Back: Negative for injury and pain, : Negative for injury, bleeding, discharge, and swelling, MS/Extremity: Negative for injury and deformity, Skin: Negative for injury, rash, and discoloration. 13:54 Neuro: Positive for weakness, of the right leg, Negative for dizziness, headache, numbness, tingling. Exam: 13:54 Constitutional: This is a well developed, well nourished patient who is awake, alert, pm1 and in no acute distress. Head/Face: Normocephalic, atraumatic. Chest/axilla: Normal chest wall appearance and motion. Nontender with no deformity. No lesions are appreciated. 13:54 Back: No spinal tenderness. No costovertebral tenderness. Full range of motion. Skin: Warm, dry with normal turgor. Normal color with no rashes, no lesions, and no evidence of cellulitis. MS/ Extremity: Pulses equal, no cyanosis. Neurovascular intact. Full, normal range of motion. 13:54 Cardiovascular: Exam negative for acute changes, Rate: normal, Rhythm: regular, Pulses: no pulse deficits are appreciated, Edema: is not appreciated. 13:54 Respiratory: Exam negative for acute changes, respiratory distress, shortness of breath. 13:54 Abdomen/GI: Inspection: abdomen appears normal, Palpation: abdomen is soft and non-tender, in all quadrants. 13:54 Neuro: Orientation: is normal, Mentation: is normal, Motor: moves all fours, patient is able to move right leg but not lift it against gravity from the bed, plantar and dorsiflexion of right foot 2/5 strength. Vital Signs: 13:48 BP 145 / 76; Pulse 90; Resp 14; Temp 98.1; Pulse Ox 99% ; sv 14:15 BP 141 / 75; Pulse 79; Resp 18; Pulse Ox 100% on R/A; Pain 0/10; ll1 15:34 BP 141 / 75; Pulse 76; Resp 18; Pulse Ox 100% ; Pain 0/10; ll1 18:33 BP 138 / 74; Pulse 81; Resp 19; Temp 98.3; Pulse Ox 98% on R/A; Pain 0/10; ll1 NIH Stroke Scale Scores: 13:54 NIHSS Score: 4 pm1 14:40 NIHSS Score: 4 ll1 MDM: 13:49 Patient medically screened. pm1 13:54 ED course: Patient presenting to the ER with complaints of inability to walk due to pm1 right leg weakness. Patient with CVA July 2018 presenting with left leg weakness. Same as his prior stroke but to right leg. Patient is outside of the treatment window. His leg weakness started on Thursday night. 15:02 Data reviewed: vital signs. Data interpreted: Pulse oximetry: on room air is 99 %. pm1 Interpretation: normal. Physician consultation: Juan Jones MD was called at 15:02, was contacted at 15:02, regarding consult, patient's condition, and will see patient. 15:03 Counseling: I had a detailed discussion with the patient and/or guardian regarding: the pm1 historical points, exam findings, and any diagnostic results supporting the discharge/admit diagnosis, lab results, radiology results, the need for further work-up and treatment in the hospital. 15:07 Physician consultation: Della Johnson MD was called at 15:07, was contacted at 15:07, pm1 regarding admission, patient's condition, and will see patient. 05/20 13:54 Order name: Basic Metabolic Panel; Complete Time: 14:49 pm1 05/20 13:54 Order name: CBC with Diff; Complete Time: 14:38 pm1 05/20 13:54 Order name: Protime (+inr); Complete Time: 14:43 pm1 05/20 13:54 Order name: Ptt, Activated; Complete Time: 14:43 pm1 05/20 15:55 Order name: CBC with Automated Diff EDMS 05/20 15:55 Order name: CBC with Automated Diff EDMS 05/20 15:55 Order name: Comprehensive Metabolic Panel EDMS 05/20 15:55 Order name: Comprehensive Metabolic Panel EDMS 05/20 15:55 Order name: Lipid Profile EDMS 05/20 15:55 Order name: Lipid Profile [facility] 05/20 15:55 Order name: Magnesium [facility] 05/20 15:55 Order name: Magnesium [facility] 05/20 15:55 Order name: Phosphorus [facility] 05/20 15:55 Order name: Phosphorus [facility] 05/20 13:54 Order name: EKG; Complete Time: 13:55 pm1 05/20 13:54 Order name: CT Head Brain wo Cont; Complete Time: 14:58 pm1 05/20 13:54 Order name: Chest Single View XRAY; Complete Time: 15:06 pm1 05/20 15:53 Order name: NPO [facility] 05/20 15:54 Order name: Physical Therapy Consult [facility] 05/20 15:54 Order name: Speech Therapy Consult [facility] 05/20 15:55 Order name: Echo with Doppler [facility] 05/20 15:55 Order name: Troponin I [facility] 05/20 15:55 Order name: Troponin I [facility] 05/20 15:55 Order name: Troponin I [facility] 05/20 15:55 Order name: Stroke Protocol [facility] 05/20 15:55 Order name: Stroke Protocol [facility] 05/20 15:55 Order name: Carotid Artery Bilateral; Complete Time: 18:11 [facility] 05/20 13:54 Order name: Cardiac monitoring; Complete Time: 14:11 pm1 05/20 13:54 Order name: EKG - Nurse/Tech; Complete Time: 14:12 pm1 05/20 13:54 Order name: IV Saline Lock; Complete Time: 14:12 pm1 05/20 13:54 Order name: Labs collected and sent; Complete Time: 14:11 pm1 05/20 13:54 Order name: NPO; Complete Time: 14:12 pm1 05/20 13:54 Order name: O2 Per Protocol; Complete Time: 14:11 pm1 05/20 13:54 Order name: O2 Sat Monitoring; Complete Time: 14:11 pm1 05/20 13:54 Order name: Stroke Swallow Screen; Complete Time: 15:53 pm1 05/20 15:55 Order name: NPO [facility] 05/20 15:55 Order name: NPO [facility] 05/20 15:55 Order name: EKG Electrocardiogram [facility] Administered Medications: 14:23 Drug: Aspirin 325 mg Route: PO; ll1 15:29 Follow up: Response: No adverse reaction; RASS: Alert and Calm (0) ll1 14:23 Drug: foLIC Acid 1 mg Route: IVPB; Site: right forearm; ll1 15:29 Follow up: Response: No adverse reaction; RASS: Alert and Calm (0); IV Status: ll1 Completed infusion; IV Intake: 1000ml Disposition: 18:47 Co-signature as Attending Physician, Georgi Darby MD. rn Disposition: 05/20/20 15:04 Hospitalization ordered by Della Johnson for Inpatient Admission. Preliminary diagnosis is Cerebral infarction. - Bed requested for Telemetry/MedSurg (Inpatient). - Status is Inpatient Admission. ll1 - Condition is Stable. - Problem is new. - Symptoms are unchanged. NIH Stroke Scale - NIH Stroke Score Date: 05/20/2020 Time: 13:54 Total Score = 4 1a. Level of Consciousness (LOC) - 0(Alert) 1b. Level of Consciousness (LOC) (Year \T\ Age) - 0(Both) 1c. LOC Commands (Open \T\ Closes Eyes/Telephone Worker) - 0(Both) 2. Best Gaze (Lateral Gaze Paresis) - 0(Normal) 3. Visual Field Loss - 0(No visual loss) 4. Facial Palsy - 0(Normal) 5a. Left Arm: Motor (10-second hold) - 0(No drift) 5b. Right Arm: Motor (10-second hold) - 0(No drift) 6a. Left Leg: Motor (5-second hold - always test supine) - 1(Drift) 6b. Right Leg: Motor (5-second hold - always test supine) - 3(No effort against gravity) 7. Limb Ataxia (finger/nose \T\ heel/cortez - test with eyes open) - 0(Absent) 8. Sensory Loss (pinprick arms/legs/face) - 0(Normal) 9. Best Language: Aphasia (description/naming/reading) - 0(No aphasia) 10. Dysarthria (speech clarity - read or repeat words) - 0(Normal) 11. Extinction and Inattention (visual/tactile/auditory/spatial/personal) - 0(No abnormality) Initials: pm1 NIH Stroke Scale - NIH Stroke Score Date: 05/20/2020 Time: 14:40 Total Score = 4 1a. Level of Consciousness (LOC) - 0(Alert) 1b. Level of Consciousness (LOC) (Year \T\ Age) - 0(Both) 1c. LOC Commands (Open \T\ Closes Eyes/Telephone Worker) - 0(Both) 2. Best Gaze (Lateral Gaze Paresis) - 0(Normal) 3. Visual Field Loss - 0(No visual loss) 4. Facial Palsy - 0(Normal) 5a. Left Arm: Motor (10-second hold) - 0(No drift) 5b. Right Arm: Motor (10-second hold) - 0(No drift) 6a. Left Leg: Motor (5-second hold - always test supine) - 1(Drift) 6b. Right Leg: Motor (5-second hold - always test supine) - 3(No effort against gravity) 7. Limb Ataxia (finger/nose \T\ heel/cortez - test with eyes open) - 0(Absent) 8. Sensory Loss (pinprick arms/legs/face) - 0(Normal) 9. Best Language: Aphasia (description/naming/reading) - 0(No aphasia) 10. Dysarthria (speech clarity - read or repeat words) - 0(Normal) 11. Extinction and Inattention (visual/tactile/auditory/spatial/personal) - 0(No abnormality) Initials: ll1 Signatures: Dispatcher [employer] EDMS Cristy Damon RN RN sv Woody, Diana, RN RN dw Georgi Darby MD MD rn Marinas, Patrick, RYLAN [employer] pm1 Tammie Rivas RN RN ll1 Corrections: (The following items were deleted from the chart) 15:35 13:54 Accucheck ordered. pm1 ll1 15:58 15:55 Chest Pa And Lat (2 Views) ordered. EDHI EDMS 17:26 15:04 Hospitalization Ordered by Della Johnson MD for Inpatient Admission. dw Preliminary diagnosis is Cerebral infarction. Bed requested for Telemetry/MedSurg (Inpatient). Status is Inpatient Admission. Condition is Stable. Problem is new. Symptoms are unchanged. pm1 18:46 17:26 05/20/2020 15:04 Hospitalization Ordered by Della Johnson MD for ll1 Inpatient Admission. Preliminary diagnosis is Cerebral infarction. Bed requested for Telemetry/MedSurg (Inpatient). Status is Inpatient Admission. Condition is Stable. Problem is new. Symptoms are unchanged. dw
--- NOTE | 2020-05-20 15:05 | ER ---
Nurse's Notes [facility] Name: Binh Parsons Age: 59 yrs Sex: Male : 1960 Arrival Date: 05/20/2020 Time: 13:46 Bed 20 Private MD: Diagnosis: Cerebral infarction Presentation: 05/20 13:46 Chief complaint: EMS states: pt normally is able to ambulate on his own but has been sv unable to since Thursday. Reports last time this happened in 2019 he had a stroke. Coronavirus screen: Client denies travel out of the [place] in the last 14 days. At this time, the client does not indicate any symptoms associated with coronavirus-19. Ebola Screen: No symptoms or risks identified at this time. Risk Assessment: Do you want to hurt yourself or someone else? Patient reports no desire to harm self or others. Onset of symptoms was May 18, 2020. 13:46 Method Of Arrival: EMS: [facility] sv 13:46 Acuity: DONG 3 sv 13:48 Initial Sepsis Screen: Does the patient meet any 2 criteria? No. Patient's initial sv sepsis screen is negative. Does the patient have a suspected source of infection? No. Patient's initial sepsis screen is negative. Historical: - Allergies: 13:48 No Known Allergies; sv - PMHx: 13:48 Hypertension; CVA; sv - PSHx: 13:48 None; sv - Immunization history:: Adult Immunizations up to date. - Social history:: Smoking status: Patient denies any tobacco usage or history of. Screenin:55 Patient has been NPO before screening. The patient is alert, able to follow commands. ll1 The patient does not exhibit slurred or garbled speech The patient is not exhibiting difficulty speaking. The patient does not exhibit difficulty understanding words. The patient is able to swallow own secretions with no drooling or need for suction. Patient tolerated one teaspoon of water. No drooling, immediate coughing, gurgling, or clearing of the throat was noted. The patient tolerated 90mL of water. No drooling, immediate coughing, gurgling, or clearing of the throat was noted. The patient passed the bedside swallow screening. Oral medications may be given as ordered. Contact Physician for further diet orders. Provider notified of bedside swallow screening results: Evin Bejarano CELL BUILDER. 14:00 Fall Risk Secondary diagnosis (15 points) CVA, IV access (20 points). Ambulatory Aid- ll1 None/Bed Rest/Nurse Assist (0 pts). Gait- Impaired (20 pts.). Total Major Fall Scale indicates High Risk Score (45 or more points). Fall prevention measures have been instituted. Side Rails Up X 2 Placed Close to Nursing Station Frequent Obs/Assessments Occuring Family Present and informed to notify staff if the need to leave the bedside As available patient and family educated on Fall Prevention Program and Strategies. 14:40 Abuse screen: Denies threats or abuse. Nutritional screening: No deficits noted. ll1 Tuberculosis screening: No symptoms or risk factors identified. Assessment: 14:15 General: Appears in no apparent distress. Behavior is calm, cooperative, appropriate ll1 for age. Pain: Denies pain. Neuro: Reports difficulty walking and moving lower extremities. . Cardiovascular: No deficits noted. Respiratory: No deficits noted. GI: No deficits noted. Musculoskeletal: Circulation, motion, and sensation intact. Capillary refill < 3 seconds, Reports weakness in both legs, unable to walk well since Thursday. 15:15 Reassessment: Patient and/or family updated on plan of care and expected duration. Pain ll1 level reassessed. Patient is alert, oriented x 3, equal unlabored respirations, skin warm/dry/pink. 16:15 Reassessment: Patient and/or family updated on plan of care and expected duration. Pain ll1 level reassessed. Patient is alert, oriented x 3, equal unlabored respirations, skin warm/dry/pink. 17:15 Reassessment: Patient and/or family updated on plan of care and expected duration. Pain ll1 level reassessed. Patient is alert, oriented x 3, equal unlabored respirations, skin warm/dry/pink. 18:15 Reassessment: Patient and/or family updated on plan of care and expected duration. Pain ll1 level reassessed. Patient is alert, oriented x 3, equal unlabored respirations, skin warm/dry/pink. Vital Signs: 13:48 BP 145 / 76; Pulse 90; Resp 14; Temp 98.1; Pulse Ox 99% ; sv 14:15 BP 141 / 75; Pulse 79; Resp 18; Pulse Ox 100% on R/A; Pain 0/10; ll1 15:34 BP 141 / 75; Pulse 76; Resp 18; Pulse Ox 100% ; Pain 0/10; ll1 18:33 BP 138 / 74; Pulse 81; Resp 19; Temp 98.3; Pulse Ox 98% on R/A; Pain 0/10; ll1 NIH Stroke Scale Scores: 13:54 NIHSS Score: 4 pm1 14:40 NIHSS Score: 4 ll1 ED Course: 13:46 Patient arrived in ED. sv 13:47 Triage completed. sv 13:48 Arm band placed on. sv 13:49 Nurse Practitioner and/or Physician Credentialing Coordinator to see patient. sv 13:49 Evin Bejarano, RYLAN is PHCP. pm1 13:49 Georgi Darby MD is Attending Physician. pm1 14:03 property assessment monitor on. Pulse ox on. NIBP on. jp3 14:03 Bed in low position. Call light in reach. Side rails up X2. Warm blanket given. Verbal jp3 reassurance given. 14:03 EKG done, by ED staff, reviewed by Evin Bejarano NP. jp3 14:11 Tammie Rivas, RN is Primary Nurse. ll1 14:20 Initial lab(s) drawn, by ny, sent to lab. Inserted saline lock: 20 gauge in right jp3 forearm, using aseptic technique. Blood collected. 14:20 Patient maintains SpO2 saturation greater than 95% on room air. jp3 14:37 CT Head Brain wo Cont In Process Unspecified. EDMS 14:52 Chest Single View XRAY In Process Unspecified. EDMS 15:04 Della Johnson MD is Hospitalizing Provider. pm1 18:33 No provider procedures requiring assistance completed. Patient admitted, IV remains in ll1 place. Administered Medications: 14:23 Drug: Aspirin 325 mg Route: PO; ll1 15:29 Follow up: Response: No adverse reaction; RASS: Alert and Calm (0) ll1 14:23 Drug: foLIC Acid 1 mg Route: IVPB; Site: right forearm; ll1 15:29 Follow up: Response: No adverse reaction; RASS: Alert and Calm (0); IV Status: ll1 Completed infusion; IV Intake: 1000ml Intake: 15:29 IV: 1000ml; Total: 1000ml. ll1 Outcome: 15:04 Decision to Hospitalize by Provider. pm1 18:33 Admitted to Med/surg accompanied by keely, via stretcher, room Room 214, with chart, ll1 Report called to Ibrahima Garcia on 18:33 Condition: stable 18:33 Instructed on the need for admit. 18:46 Patient left the ED. ll1 NIH Stroke Scale - NIH Stroke Score Date: 05/20/2020 Time: 13:54 Total Score = 4 1a. Level of Consciousness (LOC) - 0(Alert) 1b. Level of Consciousness (LOC) (Year \T\ Age) - 0(Both) 1c. LOC Commands (Open \T\ Closes Eyes/[employer]) - 0(Both) 2. Best Gaze (Lateral Gaze Paresis) - 0(Normal) 3. Visual Field Loss - 0(No visual loss) 4. Facial Palsy - 0(Normal) 5a. Left Arm: Motor (10-second hold) - 0(No drift) 5b. Right Arm: Motor (10-second hold) - 0(No drift) 6a. Left Leg: Motor (5-second hold - always test supine) - 1(Drift) 6b. Right Leg: Motor (5-second hold - always test supine) - 3(No effort against gravity) 7. Limb Ataxia (finger/nose \T\ heel/cortez - test with eyes open) - 0(Absent) 8. Sensory Loss (pinprick arms/legs/face) - 0(Normal) 9. Best Language: Aphasia (description/naming/reading) - 0(No aphasia) 10. Dysarthria (speech clarity - read or repeat words) - 0(Normal) 11. Extinction and Inattention (visual/tactile/auditory/spatial/personal) - 0(No abnormality) Initials: pm1 NIH Stroke Scale - NIH Stroke Score Date: 05/20/2020 Time: 14:40 Total Score = 4 1a. Level of Consciousness (LOC) - 0(Alert) 1b. Level of Consciousness (LOC) (Year \T\ Age) - 0(Both) 1c. LOC Commands (Open \T\ Closes Eyes/[employer]) - 0(Both) 2. Best Gaze (Lateral Gaze Paresis) - 0(Normal) 3. Visual Field Loss - 0(No visual loss) 4. Facial Palsy - 0(Normal) 5a. Left Arm: Motor (10-second hold) - 0(No drift) 5b. Right Arm: Motor (10-second hold) - 0(No drift) 6a. Left Leg: Motor (5-second hold - always test supine) - 1(Drift) 6b. Right Leg: Motor (5-second hold - always test supine) - 3(No effort against gravity) 7. Limb Ataxia (finger/nose \T\ heel/cortez - test with eyes open) - 0(Absent) 8. Sensory Loss (pinprick arms/legs/face) - 0(Normal) 9. Best Language: Aphasia (description/naming/reading) - 0(No aphasia) 10. Dysarthria (speech clarity - read or repeat words) - 0(Normal) 11. Extinction and Inattention (visual/tactile/auditory/spatial/personal) - 0(No abnormality) Initials: ll1 Signatures: Dispatcher [employer] Cristy Yeager RN RN Evin Barriga NP CELL BUILDER pm1 Donn Cummins jp3 Tammie Rivas RN RN ll1 Corrections: (The following items were deleted from the chart) 15:29 14:40 Fall Risk Secondary diagnosis (15 points) CVA, IV access (20 points). ll1 Ambulatory Aid- None/Bed Rest/Nurse Assist (0 pts). Gait- Impaired (20 pts.). Total Major Fall Scale indicates High Risk Score (45 or more points). Fall prevention measures have been instituted. Side Rails Up X 2 Placed Close to Nursing Station Frequent Obs/Assessments Occuring Family Present and informed to notify staff if the need to leave the bedside As available patient and family educated on Fall Prevention Program and Strategies. ll1 15:29 14:40 Patient has been NPO before screening. The patient is alert, able to ll1 follow commands. The patient does not exhibit slurred or garbled speech The patient is not exhibiting difficulty speaking. The patient does not exhibit difficulty understanding words. The patient is able to swallow own secretions with no drooling or need for suction. Patient tolerated one teaspoon of water. No drooling, immediate coughing, gurgling, or clearing of the throat was noted. The patient tolerated 90mL of water. No drooling, immediate coughing, gurgling, or clearing of the throat was noted. The patient passed the bedside swallow screening. Oral medications may be given as ordered. Contact Physician for further diet orders. Provider notified of bedside swallow screening results: Evin Bejarano CELL BUILDER ll1
[2020-05-20] MEDS ORDERED: ONDANSETRON 4 MG/2 ML VIAL IV PRN (15:49)
--- NOTE | 2020-05-20 15:56 | P.HP ---
Certification for Inpatient Patient admitted to: Inpatient With expected LOS: >2 Midnights Patient will require the following post-hospital care: None Practitioner: I am a practitioner with admitting privileges, knowledge of patient current condition, hospital course, and medical plan of care. Services: Services provided to patient in accordance with Admission requirements found in Title 42 Section 412.3 of the Code of Federal Regulations Patient History Date of Service: 05/20/20 Reason for admission: Generalized weakness; right-sided weakness History of Present Illness: Patient is a 59-year-old gentleman who came to the hospital with weakness on the right side. patient developed sudden weakness of his right lower extremity and his right upper extremity. He said he had had this happen in the past and was diagnosed with a stroke. He recovered and had been doing fairly well at home until this episode. He was not able to move his right leg well last night. Since it was not getting any better he decided to come into the emergency room today. His CT scan did not reveal an acute infarct. However he does have significant weakness of his right lower extremity as well as a pronator drift. on the right side. Patient was started on anti-platelet therapy and statin therapy. He will be admitted to the hospital for further workup of his acute CVA. Allergies No Known Allergies Allergy (Verified 08/15/18 14:23) Home Medications: Amlodipine [Norvasc*] 2.5 mg PO DAILY #30 tab 08/20/18 Atorvastatin Calcium [Lipitor] 80 mg PO BEDTIME #30 tab 08/20/18 Thiamine HCl [Vitamin B-1*] 100 mg PO DAILY #30 tablet 08/20/18 Amlodipine [Norvasc] 2.5 mg PO DAILY 05/20/20 Aspirin 81 mg PO DAILY 05/20/20 Donepezil [Aricept] 5 mg PO DAILY 05/20/20 - Past Medical/Surgical History Diabetic: No -: htn -: appendectomy - Family History Father Medical History: Stroke - Social History Alcohol use: Yes CD- Drugs: No Caffeine use: Yes Review of Systems 10-point ROS is otherwise unremarkable Physical Examination - Vital Signs Temperature: 97.8 F Blood Pressure: 160/75 Pulse: 68 Respirations: 18 Pulse Ox (%): 100 - Physical Exam General: Alert, In no apparent distress, Oriented x3 HEENT: Atraumatic, PERRLA, Mucous membr. moist/pink, EOMI, Sclerae nonicteric Neck: Supple, 2+ carotid pulse no bruit, No LAD, Without JVD or thyroid abnormality Respiratory: Clear to auscultation bilaterally, Normal air movement Cardiovascular: Regular rate/rhythm, Normal S1 S2, No murmurs Gastrointestinal: Normal bowel sounds, Soft and benign, Non-distended, No tenderness Musculoskeletal: No clubbing, No swelling, No tenderness Integumentary: No rashes Neurological: Normal gait, Normal speech, Normal strength at 5/5 x4 extr, Normal tone, Sensation intact, Cranial nerves 3-12 intact, Normal affect Lymphatics: No axilla or inguinal lymphadenopathy - Studies Laboratory Data (last 24 hrs) 05/20/20 14:20: PT 11.6, INR 0.98, APTT 24.5 05/20/20 14:20: WBC 4.9, Hgb 16.5, Hct 47.9, Plt Count 240 05/20/20 14:20: Sodium 138, Potassium 3.3 L, BUN 9, Creatinine 1.07, Glucose 145 H Assessment & Plan - Problems (Diagnosis) (1) Acute CVA (cerebrovascular accident) Current Visit: Yes Status: Acute (2) History of hypertension Current Visit: Yes Status: Acute - Plan 1. MRI of the brain 2. Echocardiogram and carotid Doppler 3. Anti-platelet therapy and statin therapy 4. Neurology consultation 5. Physical therapy/occupational therapy/speech therapy evaluation 6. Permissive hypertension at this time 7. DVT prophylaxis Discharge Plan: Home Plan to discharge in: Greater than 2 days - Advance Directives Does patient have a Living Will: No Does patient have a Durable POA for Healthcare: No - Code Status/Comfort Care Code Status Assessed: Yes Code Status: Full Code Critical Care: No Time Spent Managing PTS Care (In Minutes): 50
--- NOTE | 2020-05-20 18:04 | RAD REPORT ---
EXAM DESCRIPTION: US - CP - 05/20/2020 5:52 pm CLINICAL HISTORY: CVA Headache, drowsiness COMPARISON: MRA Neck W/Wo Cont dated 08/06/2018 TECHNIQUE: Real-time sonographic evaluation of both carotid systems was performed. Doppler interroga tion was performed with waveform tracing bilaterally. FINDINGS: Normal high resistance waveforms are noted in both external carotid arteries. The common c arotid arteries and internal carotid arteries show normal low resistance waveforms. Mild hard plaque is seen in both carotid bulbs. Peak systolic and end diastolic velocity values and t he ICA/CCA ratios are in the non-hemodynamically significant range. Antegrade flow seen in both vertebral arteries. IMPRESSION: Mild hard plaque is seen in both carotid bulbs. No evidence of a hemodynamically significant stenosis.
[2020-05-20] MEDS: NA CHLORIDE 0.9% 1,000 ML IV SCH (20:00)
[2020-05-20 20:52] VITALS: BMI 18.6
[2020-05-20] MEDS ORDERED: POTASSIUM CL SA 10 MEQ TAB PO ONE (21:00)
[2020-05-20] MEDS ORDERED: ATORVASTATIN 20 MG TAB PO SCH (21:00)
[2020-05-21] MEDS: NA CHLORIDE 0.9% 1,000 ML IV SCH (05:14)
[2020-05-21 05:44] LABS: Absolute Lymphocytes (CBC) 1.4 K/uL (0.7-4.9); Basophils % 1.2 % (0-1.3); Hematocrit 40.5 % (39.6-49.0); Lymphocytes % 33.2 % (15.3-44.8); MPV 8.2 fL (7.6-11.3); RBC Red Blood Cell Count 4.44 M/uL (4.33-5.43)
[2020-05-21 06:09] LABS: ALT/SGPT 25 U/L (12-78); AST/SGOT 24 U/L (15-37); Albumin 3.1 g/dL (3.4-5.0); Alkaline Phosphatase 61 U/L (45-117); BUN Blood Urea Nitrogen 8 mg/dL (7-18); Bicarbonate 27 mmol/L (21-32); Bilirubin Total 0.4 mg/dL (0.2-1.0); Glucose Level 76 mg/dL (74-106); HDL Cholesterol 62 mg/dL (40-60); LDL Cholesterol, Calculated 64 (<130); Magnesium 1.7 mg/dL (1.8-2.4); Phosphorus 3.2 mg/dL (2.5-4.9); Potassium 3.6 mmol/L (3.5-5.1); Protein, Total 7.3 g/dL (6.4-8.2); Sodium Level 137 mmol/L (136-145); Troponin I < 0.02 ng/mL (0.0-0.045)
[2020-05-21] MEDS ORDERED: MAGNESIUM SULFATE 1 gm IVPB 1 GM/100 ML BAG IV ONE (08:00)
[2020-05-21] MEDS: CLOPIDOGREL 75 MG TABLET PO SCH (08:16)
[2020-05-21] MEDS: ASPIRIN EC 81 MG TAB PO SCH (08:17)
[2020-05-21] MEDS: THIAMINE HCL 100 MG TABLET PO SCH (08:17)
[2020-05-21] MEDS: ENOXAPARIN 40 MG/0.4 ML SQ SCH (08:19)
[2020-05-21] MEDS: AMLODIPINE 2.5 MG TAB PO SCH (08:19)
[2020-05-21] MEDS ORDERED: POTASSIUM 25 MEQ EFFERV TAB PO ONE (09:00)
[2020-05-21] MEDS ORDERED: DONEPEZIL HCL 5 MG TAB PO SCH (09:00)
--- NOTE | 2020-05-21 12:53 | P.PN ---
Subjective Date of Service: 05/21/20 Chief Complaint: Generalized weakness; right-sided weakness Subjective: Other (Patient stable. Patient still reports some weakness to the right lower extremity. Slight improvement in right upper extremity weakness.) Physical Examination - Vital Signs Temperature: 97.4 F Blood Pressure: 153/91 Pulse: 70 Respirations: 16 Pulse Ox (%): 100 - Physical Exam General: Alert, In no apparent distress, Oriented x3, Cooperative HEENT: Atraumatic Neck: Supple Respiratory: Clear to auscultation bilaterally, Normal air movement Cardiovascular: Normal pulses, Regular rate/rhythm Gastrointestinal: Normal bowel sounds, Soft and benign, Non-distended, No masses, No rebound, No guarding Integumentary: No erythema, No warmth, No cyanosis Neurological: Normal affect, Abnormal strength (Decreased right lower extremity strength compared to the left side. some improvement in right upper extremity strength) - Studies Laboratory Data (last 24 hrs) 05/20/20 14:20: PT 11.6, INR 0.98, APTT 24.5 05/20/20 14:20: WBC 4.9, Hgb 16.5, Hct 47.9, Plt Count 240 05/20/20 14:20: Sodium 138, Potassium 3.3 L, BUN 9, Creatinine 1.07, Glucose 145 H Medications List Reviewed: Yes Assessment & Plan Discharge Plan: Other (Inpatient rehab) Plan to discharge in: 48 Hours Physician Review Additional Text: Impression: Right upper and lower extremity weakness likely secondary to acute CVA with history of CVA Hypertension Hyperlipidemia Dementia Plan: Right upper and lower extremity weakness likely secondary to acute CVA with history of CVA: Await echocardiogram, carotid Doppler and stroke protocol MRI. Continue aspirin, Plavix, statin medication. Patient also on DVT prophylaxis. Will provide blood pressure medication but will not be aggressive in decreasing blood pressure at this time. Will discuss further with Neurology. Physical therapy and occupational therapy to evaluate. Patient passed the swallow test. Will recommend inpatient rehab. Hypertension: Review and restart home medication. Hyperlipidemia: Continue medication. Dementia: This appears stable. Continue with Aricept. Time Spent Managing Pts Care (In Minutes): 55
--- NOTE | 2020-05-21 15:41 | RAD REPORT ---
EXAM DESCRIPTION: MRI - Brain W/Wo Cont - 05/21/2020 2:52 pm CLINICAL HISTORY: ACUTE CVA, left-sided weakness COMPARISON: MRA Head Wo Cont dated 05/21/2020; Head Brain Wo Cont dated 05/20/2020 TECHNIQUE: Sagittal and axial T1-weighted images were obtained. Axial PD/heavily T2-weighted and T2- FLAIR images were obtained along with axial DWI/ADC mapping sequences. Coronal heavily T2 weighted s equence obtained. Axial and coronal post-contrast T1-weighted images were also obtained. A 13 ml Mul tihance contrast following utilized. FINDINGS: No intracranial hemorrhage present. A 10 centimeter focus of abnormal signal present on di ffusion-weighted imaging at the posterior limb internal capsule and lateral thalamus margin. This has corresponding diminished signal on ADC mapping. Hypointense T1 and hyperintense T2/IR signal present . Patient has a baseline of moderate severity atrophy. Ventricles are in proportion to volume loss. Chr onic ischemic changes are scattered throughout the cerebral hemispheric white matter. Old infarction changes are present in the basal ganglia. There is no edema or shift of midline structures. No extra- axial fluid collections. Chakraborty-matter/white matter junction is preserved. Signal voids are seen as a normal finding in the major intracranial vessels. Post-contrast images show normal enhancement. No dural thickening. Mastoid air cells and paranasal sinuses are clear. IMPRESSION: Acute nonhemorrhagic CVA in the left posterior limb internal capsule and lateral thalamu s region. This should result right extremity neurologic deficits. Patient has significant underlying atrophy and chronic ischemic change.
--- NOTE | 2020-05-21 15:45 | RAD REPORT ---
EXAM DESCRIPTION: MRI - MRA Head Wo Cont - 05/21/2020 2:52 pm CLINICAL HISTORY: CVA COMPARISON: MRI brain same date, CT head May 20 TECHNIQUE: Axial and coronal 3D [id number] image acquisition was performed. 3D rotational images were generated with source and reconstruction images reviewed. Horizontal and vertical axis rotation al views generated using MIP protocol. FINDINGS: Basilar artery shows no suspicious findings. Distal right vertebral artery is small is a n ormal variant. Posterior cerebral artery show no significant disease. Patient has a small left regional project manager ior communicating artery. Distal internal carotid arteries show no suspicious findings. The anterior cerebral artery show minim al atherosclerotic changes in the A1 and A2 segments. Bilateral middle cerebral arteries show very mi nimal atherosclerotic change in the far peripheral branches. Move The branch occlusions that typically call is the acute infarction pattern in this patient are below t he resolution of MRA imaging. No aneurysm or vascular malformation. IMPRESSION: Patient has mild atherosclerotic changes in the anterior cerebral and middle cerebral ar mercedes distribution as detailed. No aneurysm or vascular malformation. The occlusion of the small perforating branch(es) that cause this patient's acute infarction are belo w the resolution of MRA imaging.
--- NOTE | 2020-05-21 15:47 | RAD REPORT ---
EXAM DESCRIPTION: MRI - MRA Neck W/Wo Cont - 05/21/2020 2:52 pm CLINICAL HISTORY: Acute CVA COMPARISON: MRI brain same date, MRA head same date, MR angio neck July 2018 TECHNIQUE: MR angiography of the cervical vasculature performed. Coronal imaging plane acquisition u tilized. A MultiHance contrast volume was utilized. Coronal reformatted images were generated and re viewed. Vertical axis 3D rotational projections obtained using maximum intensity projection protocol. FINDINGS: No aortic arch anomaly or great vessel origin stenosis. Vertebral artery origins also unre markable. The bilateral carotid and vertebral artery distribution show no stenosis, dissection or sig nificant atherosclerotic change. Imaged subclavian arteries without suspicious finding. IMPRESSION: Unremarkable MRA neck examination. No identifiable changes from July 2018.
[2020-05-21] MEDS: ATORVASTATIN 80 MG TAB PO SCH (19:49)
[2020-05-21] MEDS: DONEPEZIL HCL 5 MG TAB PO SCH (19:49)
[2020-05-22 04:41] LABS: BUN Blood Urea Nitrogen 8 mg/dL (7-18); Bicarbonate 30 mmol/L (21-32); Glucose Level 78 mg/dL (74-106); Magnesium 2.1 mg/dL (1.8-2.4); Potassium 3.9 mmol/L (3.5-5.1); Sodium Level 139 mmol/L (136-145)
[2020-05-22] MEDS: ASPIRIN EC 81 MG TAB PO SCH (08:10)
[2020-05-22] MEDS: CLOPIDOGREL 75 MG TABLET PO SCH (08:11)
[2020-05-22] MEDS: ENOXAPARIN 40 MG/0.4 ML SQ SCH (08:11)
[2020-05-22] MEDS: FOLIC ACID 1 MG TABLET PO SCH (08:11)
[2020-05-22] MEDS: THIAMINE HCL 100 MG TABLET PO SCH (08:11)
[2020-05-22] MEDS: AMLODIPINE 2.5 MG TAB PO SCH (08:11)
[2020-05-22] MEDS ORDERED: POTASSIUM CL SA 10 MEQ TAB PO ONE (09:00)
--- NOTE | 2020-05-22 13:26 | P.PN ---
Subjective Date of Service: 05/22/20 Chief Complaint: Generalized weakness; right-sided weakness Subjective: Other (Patient reports improvement in lower extremity weakness.) Physical Examination - Vital Signs Temperature: 97.9 F Blood Pressure: 135/84 Pulse: 104 Respirations: 18 Pulse Ox (%): 98 - Physical Exam General: Alert, In no apparent distress, Oriented x3, Cooperative HEENT: Atraumatic Neck: Supple Respiratory: Clear to auscultation bilaterally, Normal air movement Cardiovascular: Normal pulses, Regular rate/rhythm Gastrointestinal: Normal bowel sounds, No tenderness, No masses, No rebound, No guarding Neurological: Abnormal strength (Strength to the right lower extremity improved. Also better strength in the right upper extremity.) - Studies Medications List Reviewed: Yes Assessment & Plan Discharge Plan: Home Plan to discharge in: 24 Hours Physician Review Additional Text: Impression: Right upper and lower extremity weakness secondary to acute nonhemorrhagic CVA in the left posterior limb internal capsule and lateral thalamus region with history of CVA Hypertension Hyperlipidemia Dementia Plan: Right upper and lower extremity weakness secondary to acute nonhemorrhagic CVA in the left posterior limb internal capsule and lateral thalamus region with history of CVA: Will review echocardiogram. MRI reviewed shows CVA. Continue aspirin, Plavix, statin medication and blood pressure medication. Patient on DVT prophylaxis. Patient does not have any insurance. Therefore patient not available to to inpatient rehab or skilled placement. Will have patient continue work with physical therapy until the patient can safely be discharged home. Anticipate improvement over the next 24-48 hr. Hypertension: Continue medication. Will monitor and adjust appropriately. Hyperlipidemia: Continue medication. Dementia: This appears stable. Continue with Aricept. Time Spent Managing Pts Care (In Minutes): 55
[2020-05-22] MEDS: DONEPEZIL HCL 5 MG TAB PO SCH (20:14)
[2020-05-22] MEDS: ATORVASTATIN 80 MG TAB PO SCH (20:14)
[2020-05-22] MEDS: ACETAMINOPHEN 500 MG TAB PO PRN (20:14)
[2020-05-22] MEDS: ENSURE ENLIVE 237 ML CAN PO SCH (20:14)
[2020-05-23 05:12] LABS: Potassium 3.5 mmol/L (3.5-5.1)
[2020-05-23] MEDS ORDERED: POTASSIUM CL SA 10 MEQ TAB PO ONE (05:14)
--- NOTE | 2020-05-23 08:59 | ECHO ---
HEIGHT: 5 ft 9 in WEIGHT: 125 lb 11.2 oz DATE OF STUDY: 05/22/[address]: Della Johnson MD 2-DIMENSIONAL: YES M.MODE: YES DOPPLER: YES COLOR FLOW: YES TDS: PORTABLE: DEFINITY: BUBBLE STUDY: DIAGNOSIS: STROKE CARDIAC HISTORY: CATHERIZATION: SURGERY: PROSTHETIC VALVE: PACEMAKER: MEASUREMENTS (cm) DIASTOLIC (NORMALS) SYSTOLIC (NORMALS) IVSd 0.9 (0.6-1.2) LA Diam (1.9-4.0) LVEF 69% LVIDd 3.7 (3.5-5.7) LVIDs 2.3 (2.0-3.5) %FS 38% LVPWd 1.1 (0.6-1.2) Ao Diam 3.0 (2.0-3.7) 2 DIMENSIONAL ASSESSMENT: RIGHT ATRIUM: NORMAL LEFT ATRIUM: NORMAL RIGHT VENTRICLE: NORMAL LEFT VENTRICLE: NORMAL TRICUSPID VALVE: NORMAL MITRAL VALVE: NORMAL PULMONIC VALVE: NORMAL AORTIC VALVE: NORMAL PERICARDIAL EFFUSION: NONE AORTIC ROOT: NORMAL LEFT VENTRICULAR WALL MOTION: NORMAL DOPPLER/COLOR FLOW: NORMAL COMMENTS: NORMAL 2-DIMENSIONAL ECHOCARDIOGRAM WITH DOPPLER. NO WALL MOTION ABNORMALITY. NO EFFUSION. NO THROMBUS. NO VEGETATION. TECHNOLOGIST: ZUNILDA OH
[2020-05-23] MEDS: AMLODIPINE 2.5 MG TAB PO SCH (09:52)
[2020-05-23] MEDS: ENOXAPARIN 40 MG/0.4 ML SQ SCH (09:53)
[2020-05-23] MEDS: THIAMINE HCL 100 MG TABLET PO SCH (09:53)
[2020-05-23] MEDS: DULOXETINE 30 MG CAP PO SCH (09:53)
[2020-05-23] MEDS: ASPIRIN EC 81 MG TAB PO SCH (09:53)
[2020-05-23] MEDS: FOLIC ACID 1 MG TABLET PO SCH (09:53)
[2020-05-23] MEDS: CLOPIDOGREL 75 MG TABLET PO SCH (09:53)
[2020-05-23] MEDS: ENSURE ENLIVE 237 ML CAN PO SCH ×2 (09:54→21:22)
--- NOTE | 2020-05-23 14:34 | P.PN ---
Subjective Date of Service: 05/23/20 Chief Complaint: Generalized weakness; right-sided weakness Subjective: Improving, Doing well Physical Examination - Vital Signs Temperature: 99.1 F Blood Pressure: 126/78 Pulse: 90 Respirations: 18 Pulse Ox (%): 98 - Physical Exam General: Alert, In no apparent distress, Oriented x3, Cooperative HEENT: Atraumatic Neck: Supple Respiratory: Clear to auscultation bilaterally, Normal air movement Cardiovascular: Normal pulses, Regular rate/rhythm Gastrointestinal: Normal bowel sounds, Soft and benign, Non-distended, No tenderness, No masses, No rebound, No guarding Neurological: Normal affect, Abnormal strength (Better strength to the right upper extremity. Still some weakness to the right lower extremity.) - Studies Medications List Reviewed: Yes Assessment & Plan Discharge Plan: Home Plan to discharge in: 24 Hours Physician Review Additional Text: Impression: Right upper and lower extremity weakness secondary to acute nonhemorrhagic CVA in the left posterior limb internal capsule and lateral thalamus region with history of CVA Hypertension Hyperlipidemia Dementia Plan: Right upper and lower extremity weakness secondary to acute nonhemorrhagic CVA in the left posterior limb internal capsule and lateral thalamus region with history of CVA: Overall stable. Blood pressure stable on medication. Continue current medications. Spoke with Neurology. Continue with plan of care. Patient not able to go to inpatient rehab floor skilled facility due to lack of insurance. Physical therapy to continue to work with patient and family. Once the patient is safe to be discharged then will plan for discharge home. Will needed teach family on transfers. Patient will likely require wheelchair discharge. Will continue to reassess for possible discharge likely tomorrow. Hypertension: Continue medication. Will monitor and adjust appropriately. Hyperlipidemia: Continue medication. Dementia: This appears stable. Continue with Aricept. Time Spent Managing Pts Care (In Minutes): 55
--- NOTE | 2020-05-23 19:28 | CON ---
Reason For Consultation: Consultation called because of stroke. History Of Present Illness: Mr. Parsons is a 59-year-old right-handed patient with hypertension, dyslipidemia, who comes in with right-sided weakness. The patient developed sudden-ons et right-sided lower more than upper extremity weakness when he actually noted he could not move the right leg and it occurred more than 24 hours prior to coming into [facility]. He has evalua tion in the emergency room and he had a head CT scan, which showed no acute ischemic or hemorrhagic c hange, and he had 0 movement noted in the right lower extremity with mild to moderate weakness in the left lower extremity. Sensory examination was reportedly intact in the upper and lower extremities. Because he was way out of the window for tPA, tissue plasminogen activator was not given. In addit ion, he had NIH Stroke Scale of 4 and no cortical signs such as loss of vision or speech or aphasia. He was treated in the emergency room with aspirin, given fluids. He had a low potassium, that was r eplaced on folic acid with DVT prophylaxis in addition to Lipitor. Since admission, the patient has not had significant improvement in the weakness of the lower extremities. He has had blood pressures that were in the normal range and his blood work revealed no abnormalities in terms of complete bloo d count with differential, coagulation panel, and his blood sugars range up to 145 from about 76. Ut s cholesterol panel showed an HDL of 62 with an LDL of 64, total cholesterol of 136. He did have an MRI of the brain, which identified an acute nonhemorrhagic stroke in the left posterior limb of the i nternal capsule and the lateral thalamus, which explain the patient's symptoms. He did have prior st rokes noted in brain MRI involving basal ganglia and scattered white matter small vessel ischemic dis ease. Blood vessels did not show any significant stenosis in the head or neck by MRA. Echocardiogra m showed ejection fraction of 69% and no thrombus or vegetation. Past Medical History: As indicated in addition to prior stroke with his hypertension. Past Surgical History: None. Allergies: NONE. Family History: Noncontributory. Review of Systems: No recent fevers, chills, nausea, vomiting, myalgias, arthralgias, headache, weight change, or rash. Social History: No alcohol or tobacco use. Physical Examination: Vital Signs: Blood pressure 126/78, pulse 87, respiratory rate 16, temperature 98.8, oxygen saturati on 99% on room air. Weight 125 pounds. Height 5 feet 9 inches. General: Mr. Parsons is resting in bed. He is in no acute distress. HEENT: He is normocephalic, atraumatic. Sclerae anicteric. Oropharynx is pink and moist. Neck: Supple. Chest: Clear. Heart: Regular. Extremities: No clubbing, cyanosis, or edema. Neurologic: He is alert and oriented to situation, place, and person. Follows commands appropriatel y. He does have marked weakness in the right lower extremity, unable to lift the leg off the bed, an d his right upper extremity shows mild [id number] weakness proximally and distally, and he does report intact sensation to light touch and pinprick. Coordination, he has weakness, unable to fully assess in the right lower extremity. Gait, he will require significant help with gait belt and phys ical therapy will be ambulating the patient. Assessment: Mr. Parsons is a 59-year-old patient with an acute left hemispheric stroke with stroke r isk factors of diabetes mellitus, hypertension, and dyslipidemia, who comes in with an additional str tyler. His echocardiogram is within normal limits. There is no cerebrovascular large vessel disease. Plan: He should be on aspirin 81 mg daily, Lipitor 80 mg at night, Plavix 75 mg daily, and he may co ntinue that combination for around 1 month, then will be put back on aspirin daily. Continue with Ar icept 5 mg at bedtime. He does have Norvasc 2.5 mg daily, may hold to allow some permissive hyperten kei in the duration of his stroke. Continue with DVT prophylaxis. Continue with folic acid. Melany nue with Cymbalta for his depression. The patient may be discharged home and follow up in Dr. Jones's clin ic 1 month later. ANNE/FRACISCO Voice ID: [id number] Report ID: [id number]
[2020-05-23] MEDS: ATORVASTATIN 80 MG TAB PO SCH (21:21)
[2020-05-23] MEDS: DONEPEZIL HCL 5 MG TAB PO SCH (21:21)
[2020-05-23] MEDS: ACETAMINOPHEN 500 MG TAB PO PRN (21:22)
[2020-05-24 05:45] LABS: BUN Blood Urea Nitrogen 13 mg/dL (7-18); Bicarbonate 29 mmol/L (21-32); Glucose Level 92 mg/dL (74-106); Sodium Level 139 mmol/L (136-145)
--- NOTE | 2020-05-24 07:26 | P.PN ---
Subjective Date of Service: 05/24/20 Chief Complaint: Generalized weakness; right-sided weakness Subjective: Other (Patient stable. Patient continues to improve.) Physical Examination - Vital Signs Temperature: 97.8 F Blood Pressure: 139/81 Pulse: 75 Respirations: 18 Pulse Ox (%): 99 - Physical Exam General: Alert, In no apparent distress, Oriented x3, Cooperative HEENT: Atraumatic Neck: Supple Respiratory: Normal air movement Cardiovascular: Normal pulses Gastrointestinal: No tenderness Integumentary: No erythema, No warmth, No cyanosis Neurological: Normal affect, Abnormal strength (Strength to the right upper extremity improved. Strength to the right lower extremity slightly improved but still weak.) - Studies Medications List Reviewed: Yes Assessment & Plan Discharge Plan: Home Plan to discharge in: 24 Hours Physician Review Additional Text: Impression: Right upper and lower extremity weakness secondary to acute nonhemorrhagic CVA in the left posterior limb internal capsule and lateral thalamus region with history of CVA Hypertension Hyperlipidemia Dementia likely vascular Depression Plan: Right upper and lower extremity weakness secondary to acute nonhemorrhagic CVA in the left posterior limb internal capsule and lateral thalamus region with history of CVA: Spoke with family inpatient at length yesterday. Family will try to obtain wheelchair. Continue to work with physical therapy. Family to work with physical therapy today to get a educated on what patient's needs will be. Overall improved. Will plan for discharge tomorrow. Continue aspirin, Plavix, Lipitor, and Norvasc. As recommended by neurology patient will follow up with neurology within 1 month. Neurology will consider discontinuing Plavix after that time. Will try to make arrangements for the patient to see a local PCP. Family to obtain wheelchair and other needs. Hypertension: Continue medication Norvasc. Will monitor and adjust appropriately. Hyperlipidemia: Continue medication Lipitor 80 mg. Dementia likely vascular: This appears stable. Continue with Aricept. Depression: Continue Cymbalta Time Spent Managing Pts Care (In Minutes): 55
[2020-05-24] MEDS: THIAMINE HCL 100 MG TABLET PO SCH (09:42)
[2020-05-24] MEDS: ENOXAPARIN 40 MG/0.4 ML SQ SCH (09:42)
[2020-05-24] MEDS: FOLIC ACID 1 MG TABLET PO SCH (09:42)
[2020-05-24] MEDS: AMLODIPINE 2.5 MG TAB PO SCH (09:42)
[2020-05-24] MEDS: ASPIRIN EC 81 MG TAB PO SCH (09:42)
[2020-05-24] MEDS: ENSURE ENLIVE 237 ML CAN PO SCH ×2 (09:43→20:52)
[2020-05-24] MEDS: DULOXETINE 30 MG CAP PO SCH (09:43)
[2020-05-24] MEDS: CLOPIDOGREL 75 MG TABLET PO SCH (09:43)
[2020-05-24] MEDS: ATORVASTATIN 80 MG TAB PO SCH (20:52)
[2020-05-24] MEDS: DONEPEZIL HCL 5 MG TAB PO SCH (20:52)
[2020-05-25 03:57] VITALS: O2SAT 96
--- NOTE | 2020-05-25 08:16 | P.DS ---
Admission Date: 05/20/20 Discharge Date: 05/25/20 Primary Care Provider: Dr. Garcia; Neurology-Dr. Jones Disposition: ROUTINE DISCHARGE Discharge Condition: GOOD Reason for Admission: Generalized weakness; right-sided weakness Consultations: Neurology-Dr. Jones Procedures: MRI Brain: FINDINGS: No intracranial hemorrhage present. A 10 centimeter focus of abnormal signal present on diffusion-weighted imaging at the posterior limb internal capsule and lateral thalamus margin. This has corresponding diminished signal on ADC mapping. Hypointense T1 and hyperintense T2/IR signal present. Patient has a baseline of moderate severity atrophy. Ventricles are in proportion to volume loss. Chronic ischemic changes are scattered throughout the cerebral hemispheric white matter. Old infarction changes are present in the basal ganglia. There is no edema or shift of midline structures. No extra-axial fluid collections. Chakraborty-matter/white matter junction is preserved. Signal voids are seen as a normal finding in the major intracranial vessels. Post-contrast images show normal enhancement. No dural thickening. Mastoid air cells and paranasal sinuses are clear. IMPRESSION: Acute nonhemorrhagic CVA in the left posterior limb internal capsule and lateral thalamus region. This should result right extremity neurologic deficits. Patient has significant underlying atrophy and chronic ischemic change. MRA Brain: FINDINGS: Basilar artery shows no suspicious findings. Distal right vertebral artery is small is a normal variant. Posterior cerebral artery show no significant disease. Patient has a small left posterior communicating artery. Distal internal carotid arteries show no suspicious findings. The anterior cerebral artery show minimal atherosclerotic changes in the A1 and A2 segments. Bilateral middle cerebral arteries show very minimal atherosclerotic change in the far peripheral branches. The branch occlusions that typically call is the acute infarction pattern in this patient are below the resolution of MRA imaging. No aneurysm or vascular malformation. IMPRESSION: Patient has mild atherosclerotic changes in the anterior cerebral and middle cerebral artery distribution as detailed. No aneurysm or vascular malformation. The occlusion of the small perforating branch(es) that cause this patient's acute infarction are below the resolution of MRA imaging. MRA Neck: FINDINGS: No aortic arch anomaly or great vessel origin stenosis. Vertebral artery origins also unremarkable. The bilateral carotid and vertebral artery distribution show no stenosis, dissection or significant atherosclerotic change. Imaged subclavian arteries without suspicious finding. IMPRESSION: Unremarkable MRA neck examination. No identifiable changes from July 2018. Carotid doppler: FINDINGS: Normal high resistance waveforms are noted in both external carotid arteries. The common carotid arteries and internal carotid arteries show normal low resistance waveforms. Mild hard plaque is seen in both carotid bulbs. Peak systolic and end diastolic velocity values and the ICA/CCA ratios are in the non-hemodynamically significant range. Antegrade flow seen in both vertebral arteries. IMPRESSION: Mild hard plaque is seen in both carotid bulbs. No evidence of a hemodynamically significant stenosis. ECHO: EF 69% LEFT VENTRICULAR WALL MOTION: NORMAL DOPPLER/COLOR FLOW: NORMAL COMMENTS: NORMAL 2-DIMENSIONAL ECHOCARDIOGRAM WITH DOPPLER. NO WALL MOTION ABNORMALITY. NO EFFUSION. NO THROMBUS. NO VEGETATION. Medical Problem List: Right upper and lower extremity weakness secondary to acute nonhemorrhagic CVA in the left posterior limb internal capsule and lateral thalamus region with history of CVA Hypertension Hyperlipidemia Dementia likely vascular Depression Brief History of Present Illness: 59-year-old male presented to the emergency room with right upper and lower extremity weakness. Patient with history of CVA and hypertension. CVA was suspected. Initial CT scan unremarkable. Patient admitted for further evaluation and treatment. Hospital Course: Patient presented with right upper and lower extremity weakness. Patient with history of CVA in the past with hypertension, hyperlipidemia, depression and dementia. Initial CT head showed no acute stroke. The patient was further evaluated. MRI showed acute nonhemorrhagic CVA in the left posterior limb internal capsule and lateral thalamus region. Patient was placed on aspirin, Plavix, Lipitor and blood pressure medication. The patient has done well. Patient seen and evaluated by Neurology. Patient has improved with physical therapy. Right upper extremity showed improvement. Right lower extremity still weak but improvement noted. Patient has no insurance therefore inpatient rehab/skilled placement could not be considered. Family was taught to help with transfers. At discharge patient will continue with aspirin 81 mg daily, Plavix 75 mg daily, Lipitor 80 mg daily, folic acid 1 mg daily, thiamine 100 mg daily, and Norvasc 2.5 mg daily. Patient will continue with physical therapy recommendations at home. Patient will follow up with neurology in 2-4 weeks to follow up this hospitalization. Neurology will consider discontinuing Plavix after that time. Recommend follow up with PCP to further monitor and address. Fall precautions in place. Education on CVA will be provided. Patient with hypertension. Blood pressure stable on Norvasc 2.5 mg daily. Recommend to maintain blood pressure less than 130/80. Further adjustment can be done by his PCP. Patient with hyperlipidemia. At discharge patient will continue with Lipitor 80 mg daily. Patient with dementia likely vascular. Patient takes Aricept 5 mg daily. At discharge patient will continue with Aricept daily. Further adjustment can be done by Neurology. Patient with depression. Patient takes Cymbalta 30 mg daily. At discharge patient may continue with his current medication. Vital Signs/Physical Exam: Temp Pulse Resp BP Pulse Ox 97.8 F 82 19 131/78 98 05/25/20 04:00 05/25/20 04:00 05/25/20 04:00 05/25/20 04:00 05/25/20 04:00 General: Alert, In no apparent distress, Oriented x3, Cooperative HEENT: Atraumatic Neck: Supple Respiratory: Clear to auscultation bilaterally, Normal air movement Cardiovascular: Normal pulses, Regular rate/rhythm Gastrointestinal: Normal bowel sounds, No tenderness, No masses, No rebound, No guarding Musculoskeletal: No tenderness, No warmth Integumentary: No erythema, No warmth, No cyanosis Neurological: Abnormal strength (Right upper extremity shows improvement in strength. Right lower extremity also shows improvement but still weak.) Laboratory Data at Discharge: WBC 4.3 K/uL (4.3-10.9) 05/21/20 05:18 Hgb 14.2 g/dL (13.6-17.9) 05/21/20 05:18 Hct 40.5 % (39.6-49.0) D 05/21/20 05:18 Plt Count 217 K/uL (152-406) 05/21/20 05:18 PT 11.6 SECONDS (9.5-12.5) 05/20/20 14:20 INR 0.98 05/20/20 14:20 APTT 24.5 SECONDS (24.3-36.9) 05/20/20 14:20 Sodium 139 mmol/L (136-145) 05/24/20 05:14 Potassium 4.0 mmol/L (3.5-5.1) 05/24/20 05:14 BUN 13 mg/dL (7-18) 05/24/20 05:14 Creatinine 1.02 mg/dL (0.55-1.3) 05/24/20 05:14 Glucose 92 mg/dL (74-106) 05/24/20 05:14 Phosphorus 3.2 mg/dL (2.5-4.9) 05/21/20 05:18 Magnesium 2.1 mg/dL (1.8-2.4) 05/22/20 03:49 Total Bilirubin 0.4 mg/dL (0.2-1.0) 05/21/20 05:18 AST 24 U/L (15-37) 05/21/20 05:18 ALT 25 U/L (12-78) 05/21/20 05:18 Alkaline Phosphatase 61 U/L (45-117) 05/21/20 05:18 Troponin I < 0.02 ng/mL (0.0-0.045) 05/21/20 05:18 Triglycerides 51 mg/dL (<150) 05/21/20 05:18 Cholesterol 136 mg/dL (<200) 05/21/20 05:18 HDL Cholesterol 62 mg/dL (40-60) H 05/21/20 05:18 Cholesterol/HDL Ratio 2.19 05/21/20 05:18 Home Medications: Atorvastatin Calcium [Lipitor] 80 mg PO BEDTIME #30 tab 08/20/18 Thiamine HCl [Vitamin B-1*] 100 mg PO DAILY #30 tablet 08/20/18 Amlodipine [Norvasc*] 2.5 mg PO DAILY 05/20/20 Aspirin 81 mg PO DAILY 05/20/20 Donepezil [Aricept*] 5 mg PO DAILY 05/20/20 Duloxetine HCl 1 tab PO DAILY 05/21/20 Clopidogrel Bisulfate [Plavix*] 75 mg PO DAILY #30 tablet 05/25/20 Folic Acid 1 mg PO DAILY #90 tablet 05/25/20 New Medications: Folic Acid 1 mg PO DAILY #90 tablet Clopidogrel Bisulfate [Plavix*] 75 mg PO DAILY #30 tablet Patient Discharge Instructions: 1. Recommend follow up with PCP in 1 week to follow up this hospitalization. 2. Patient presented with right upper and lower extremity weakness. Patient with history of CVA in the past with hypertension, hyperlipidemia, depression and dementia. Initial CT head showed no acute stroke. The patient was further evaluated. MRI showed acute nonhem orrhagic CVA in the left posterior limb internal capsule and lateral thalamus region. Patient was placed on aspirin, Plavix, Lipitor and blood pressure medication. The patient has done well. Patient seen and evaluated by Neurology. Patient has improved with physical therapy. Right upper extremity showed improvement. Right lower extremity still weak but improvement noted. Patient has no insurance therefore inpatient rehab/skilled placement could not be considered. Family was taught to help with transfers. At discharge patient will continue with aspirin 81 mg daily, Plavix 75 mg daily, Lipitor 80 mg daily, folic acid 1 mg daily, thiamine 100 mg daily, and Norvasc 2.5 mg daily. Patient will continue with physical therapy recommendations at home. Patient will follow up with neurology in 2-4 weeks to follow up this hospitalization. Neurology will consider discontinuing Plavix after that time. Recommend follow up with PCP to further monitor and address. Fall precautions in place. Education on CVA will be provided. 3. Patient with hypertension. Blood pressure stable on Norvasc 2.5 mg daily. Recommend to maintain blood pressure less than 130/80. Further adjustment can be done by his PCP. 4. Patient with hyperlipidemia. At discharge patient will continue with Lipitor 80 mg daily. 5. Patient with dementia likely vascular. Patient takes Aricept 5 mg daily. At discharge patient will continue with Aricept daily. Further adjustment can be done by Neurology. 6. Patient with depression. Patient takes Cymbalta 30 mg daily. At discharge patient may continue with his current medication. Diet: AHA Activity: Fall precautions Followup: Erasmo Garcia, [Primary Care Provider] - Time spent managing pt's care (in minutes): 55
[2020-05-25] MEDS: AMLODIPINE 2.5 MG TAB PO SCH (08:31)
[2020-05-25] MEDS: ASPIRIN EC 81 MG TAB PO SCH (08:31)
[2020-05-25] MEDS: ENOXAPARIN 40 MG/0.4 ML SQ SCH (08:32)
[2020-05-25] MEDS: THIAMINE HCL 100 MG TABLET PO SCH (08:32)
[2020-05-25] MEDS: CLOPIDOGREL 75 MG TABLET PO SCH (08:32)
[2020-05-25] MEDS: FOLIC ACID 1 MG TABLET PO SCH (08:32)
[2020-05-25] MEDS: DULOXETINE 30 MG CAP PO SCH (08:32)
[2020-05-25] MEDS: ENSURE ENLIVE 237 ML CAN PO SCH (08:33)
[2020-05-25 08:34] VITALS: BP 140/76
[2020-05-25 10:05] VITALS: TEMP 98.6
== END 2020-05-25 13:08 | disposition home or self-care (01) | DRG 65 ==
LOC: ER 13:42 → ERHOLD 16:05 → 2ND 18:33
PROVIDERS: ADMIT Hospitalist; ATTEND Family Medicine
DX: I63.9 Cerebral infarction, unspecified (principal); G81.91 Hemiplegia, unspecified affecting right dominant side; E78.5 Hyperlipidemia, unspecified; F32.9 Major depressive disorder, single episode, unspecified; F01.50 Vascular dementia, unspecified severity, without behavioral disturbance, psychotic disturbance, mood disturbance, and anxiety; I10 Essential (primary) hypertension; R29.704 NIHSS score 4; Z86.73 Personal history of transient ischemic attack (TIA), and cerebral infarction without residual deficits; Z79.02 Long term (current) use of antithrombotics/antiplatelets; Z79.82 Long term (current) use of aspirin; Z79.899 Other long term (current) drug therapy; Z90.49 Acquired absence of other specified parts of digestive tract; Z20.828 Contact with and (suspected) exposure to other viral communicable diseases
CPT/HCPCS: 36415; 70450; 70544; 70549; 70553; 71045; 80048; 80053; 80061; 82947; 83735; 84100; 84484; 85025; 85610; 85730; 93005; 93306; 93880; 96365; 97110; 97112; 97161; 97530; 99285; A9577; J1650; J3475; J7030; U0002